=== PATIENT | male | born 1945 | race Caucasian/White ===

== ENCOUNTER → 2020-10-31 15:21 | Outpatient (CLI) | payer MEDICARE, SELFPAY ==
--- NOTE | 2020-11-27 09:02 | PM.CARDMON.1 ---
Jacquard Card Lacer Report Referral & Results Date Patient Seen: 10/31/20 Requesting provider: Shweta Tay Indication: Cardiac arrhythmia Duration of monitoring (days): 14 Diary information: There are no patient diary events or patient triggered events to review Data: Minimum heart rate identified was 67 beats per minute at 18:39 on 11/08/2020 Maximum heart rate was 152 beats per minute at 16:21 on 11/01/2020 Less than 1% of identified beats were ventricular ectopic in origin Patient was continuously in atrial flutter/atrial fibrillation, but upon review specially of the slowest heart rates patient does appear to be mostly in atypical atrial flutter with variable block Impression: Patient with atrial flutter and possible atrial fibrillation as above. Clinical correlation suggested
== END ==
PROVIDERS: PCP Physician Assistant; Referring Provider Physician Assistant; Visit Provider Physician Assistant
DX: I49.9 Cardiac arrhythmia, unspecified (principal)
CPT/HCPCS: 93246; 93248

== ENCOUNTER → 2021-11-17 10:27 | Outpatient (CLI) | payer MEDICARE, SELFPAY ==
[2021-11-17 12:26] LABS: COVID19 -Nasal RAPID Negative (Negative)
== END ==
PROVIDERS: PCP Physician Assistant; Referring Provider Family Medicine Sleep Medicine; Visit Provider Family Medicine Sleep Medicine
DX: Z20.822 Contact with and (suspected) exposure to COVID-19 (principal)
CPT/HCPCS: 87635; C9803

== ENCOUNTER 2021-11-18 08:13 | Day surgery (SDC) | payer MEDICARE, SELFPAY ==
[2021-11-18] MEDS: PROPARACAINE 0.5% OPHTH SOL 2 DROPS EYE-OP (09:18)
[2021-11-18 09:20] VITALS: BP 167/80; PULSE 67; RESP 16; TEMP 36.9; O2SAT 97; BMI 24.3
[2021-11-18] MEDS: CATARACT EYE COMPOUND (10 DROPS/SYRINGE) 3 DROPS EYE-OP (09:25)
--- NOTE | 2021-11-18 10:01 | PM.PREOP ---
Pre-operative Note Interval Note History & Physical reviewed/Exam performed by Physician: Yes Changes to H&P: No Addendum Addendum Note: Non surgical alternatives are not available for patients condtion. Deterioration fo the patient's condition is expected without treatment. Delay may result in more complex future surgery.
--- NOTE | 2021-11-18 10:02 | P.OP_ITS ---
Operative Date/Time/Diagnoses Pre-op diagnosis: Nuclear cataract right eye Procedure & Clinicians Procedure: Cataract Surgery Same procedure as scheduled: Yes Surgeon: Andi Ashford Anesthesia Type: MAC +/- and Sedation Operative Notes Procedure in detail: Patient brought to the operating suite. Tetracaine drops placed in the right eye. marking instrument was used to ranjith the vertical and horizontal meridians. Patient was prepped and draped in sterile manner. Wire lid speculum was placed in the eye. Marking instrument was used to ranjith the 100 degree meridian. Betadine drops were placed on the eye. This was irrigated. Lidocaine jelly was placed on the eye. A paracentesis port was created with a side-port blade. 0.1 mL 1% preservative free lidocaine was injected into the anterior chamber. The anterior chamber was deepened with viscoelastic. 2.6 mm keratome was used to create a temporal clear corneal incision. Cystotome and Utrata forceps were used to create continuous tear capsulorrhexis. Balanced salt solution was used to hydro dissect the nucleus. The phacoemulsification handpiece was inserted and the nucleus was removed using the stop and chop technique. The irrigation aspiration handpiece was inserted and the remaining cortex was removed. Anterior chamber was deepened with viscoelastic. An Ortega [id number] intraocular lens with a power of 21.5 was injected into the capsular bag. Irrigation aspiration handpiece was inserted and the remaining viscoelastic was removed. The lens was rotated to the 100 degree meridian. Incision was hydrated with balanced salt solution and found to be leak free with pressure with Weck-Vandana sponges. 0.1 mL Vigamox injected anterior chamber. 0.3 mL Kenalog 10 mg was injected subco njunctivally. Lid speculum was removed. The patient left the operating room in excellent condition. Complications: none Post-operative Condition: stable Disposition: same day surgery
--- NOTE | 2021-11-18 10:26 | SUR.OPER ---
Supine on eye stretcher, head on extension cradle secured with tape. Arms tucked at sides with blanket. Pillow under knees.
[2021-11-18] MEDS: HYALURONATE SODIUM 30 MG-10 MG/ML SYRINGES 1 BOX INTRAOCULA (10:30)
[2021-11-18] MEDS: TRIAMCINOLONE 50 MG/5 ML VIAL INJ (10:31)
[2021-11-18] MEDS: LIDOCAINE 2% (GLYDO) 6 ML GEL TOP (10:31)
[2021-11-18] MEDS: PHENYLEPHRINE/LIDOCAINE VIAL (OR) 0.2 ML EYE-OP (10:31)
[2021-11-18] MEDS: TETRACAINE 0.5% OPHTH DROPS 4 ML 2 DROPS EYE-OP (10:31)
[2021-11-18] MEDS: MOXIFLOXACIN INJ 4 MG/0.8 ML VIAL 0.5 MG EYE-OP (10:31)
[2021-11-18] MEDS: BALANCED SALT IRRIG SOLN NO.2 500 ML, EPINEPHrine 1 MG IRR (10:32)
[2021-11-18 10:43] VITALS: BP 139/69; PULSE 63; RESP 14; TEMP 36.2; O2SAT 97
== END 2021-11-18 10:53 | disposition home or self-care (01) ==
PROVIDERS: PCP Internal Medicine; Referring Provider Ophthalmology; Visit Provider Ophthalmology
PROC: (CPT 66984; principal; 2021-11-18 10:15)
DX: H25.11 Age-related nuclear cataract, right eye (principal); I10 Essential (primary) hypertension; E78.5 Hyperlipidemia, unspecified; R73.03 Prediabetes
CPT/HCPCS: 66984; J0171; J2250; J3301; V2787

== ENCOUNTER → 2021-11-24 07:24 | Outpatient (CLI) | payer MEDICARE, SELFPAY ==
--- NOTE | 2021-11-24 | DI.US.S_ITS ---
PROCEDURE: US ABD AORTA ANEURYSM SCREEN INDICATIONS: SCREENING TECHNIQUE: Real time scanning was performed of the aorta and iliac arteries, with image documentation. COMPARISON: None. FINDINGS: Aorta: Proximal aortic diameter measures 2.6 cm. Mid-aorta measures 2.2 cm. Distal aortic diameter is 2 cm. Iliac arteries: Right common iliac artery measures 1.2 cm. Left common iliac artery measures 1.9 cm. Study is limited by bowel gas. A IMPRESSION: Negative for aneurysm. Dictated by: Ata Diaz M.D. on 11/24/2021 at 9:46 Approved by: Ata Diaz M.D. on 11/24/2021 at 9:46
== END ==
PROVIDERS: PCP Internal Medicine; Referring Provider Internal Medicine; Visit Provider Internal Medicine
DX: Z13.6 Encounter for screening for cardiovascular disorders (principal)
CPT/HCPCS: 76706

== ENCOUNTER → 2021-12-01 11:02 | Outpatient (CLI) | payer MEDICARE, SELFPAY ==
[2021-12-01 12:41] LABS: COVID19 -Nasal RAPID Negative (Negative)
== END ==
PROVIDERS: PCP Internal Medicine; Visit Provider Family Medicine Sleep Medicine
DX: Z20.822 Contact with and (suspected) exposure to COVID-19 (principal)
CPT/HCPCS: 87635; C9803

== ENCOUNTER 2021-12-02 10:13 | Day surgery (SDC) | payer MEDICARE, SELFPAY ==
[2021-12-02] MEDS: PROPARACAINE 0.5% OPHTH SOL 2 DROPS EYE-OP (10:55)
[2021-12-02] MEDS: CATARACT EYE COMPOUND (10 DROPS/SYRINGE) 3 DROPS EYE-OP (10:58)
[2021-12-02 11:08] VITALS: BP 157/74; PULSE 65; RESP 16; TEMP 36.8; O2SAT 99; BMI 35.9
--- NOTE | 2021-12-02 11:28 | P.OP.PRE_ITS ---
Pre-operative Note Interval Note History & Physical reviewed/Exam performed by Physician: Yes Changes to H&P: No Addendum Addendum Note: There are no non surgical alternatives to the patient's condition. Deteriora tion of the patient's condition is expected. Delay may result in more complex future surgery
--- NOTE | 2021-12-02 11:30 | P.OP_ITS ---
Operative Date/Time/Diagnoses Pre-op diagnosis: Nuclear Cataract Left eye Post-op diagnosis: same Procedure & Clinicians Same procedure as scheduled: Yes Surgeon: Andi Ashford Anesthesia Type: MAC +/- and Sedation Operative Notes Procedure in detail: Patient brought to the operating suite. Tetracaine drops placed in the left eye. Marking instrument was used to ranjith the vertical and horizontal meridians. Patient was prepped and draped in sterile manner. Wire lid speculum was placed in the eye. Betadine drops were placed on the eye. This was irrigated. Lid ocaine jelly was placed on the eye. A paracentesis port was created with a side- port blade. 0.1 mL 1% preservative free lidocaine was injected into the anterior chamber. The anterior chamber was deepened with viscoelastic. 2.6 mm keratome was used to create a temporal clear corneal incision. Cystotome and Utrata forceps were used to create continuous tear capsulorrhexis. Balanced salt solution was used to hydro dissect the nucleus. The phacoemulsification handpiece was inserted and the nucleus was removed using the stop and chop technique. The irrigation aspiration handpiece was inserted and the remaining cortex was removed. Anterior chamber was deepened with viscoelastic. An Ortega [id number] intraocular lens with a power of 24.0 was injected into the capsular bag. Irrigation aspiration handpiece was inserted and the remaining viscoelastic was removed. The lens was rotated to the 90 degree meridian. Incision was hydrated with balanced salt solution and found to be leak free with pressure with Weck- Vandana sponges. 0.1 mL Vigamox injected anterior chamber. 0.3 mL Kenalog 10 mg was injected subconjunctivally. Lid speculum was removed. The patient left the operating room in excellent condition. Complications: none Post-operative Condition: stable Disposition: same day surgery
[2021-12-02] MEDS: TRIAMCINOLONE 50 MG/5 ML VIAL INJ (11:47)
[2021-12-02] MEDS: HYALURONATE SODIUM 30 MG-10 MG/ML SYRINGES 1 BOX INTRAOCULA (11:47)
[2021-12-02] MEDS: MOXIFLOXACIN INJ 4 MG/0.8 ML VIAL 0.5 MG EYE-OP (11:47)
[2021-12-02] MEDS: PHENYLEPHRINE/LIDOCAINE VIAL (OR) 0.2 ML EYE-OP (11:47)
[2021-12-02] MEDS: TETRACAINE 0.5% OPHTH DROPS 4 ML 2 DROPS EYE-OP (11:48)
[2021-12-02] MEDS: BALANCED SALT IRRIG SOLN NO.2 500 ML, EPINEPHrine 1 MG IRR (11:48)
[2021-12-02] MEDS: LIDOCAINE 2% (GLYDO) 6 ML GEL TOP (11:48)
[2021-12-02 12:16] VITALS: BP 131/79; PULSE 63; RESP 16; TEMP 36.6; O2SAT 99
--- NOTE | 2021-12-02 12:17 | SUR.PHASEII ---
Ready to go, left unit in stable condition.
== END 2021-12-02 12:18 | disposition home or self-care (01) ==
PROVIDERS: PCP Internal Medicine; Referring Provider Ophthalmology; Visit Provider Ophthalmology
PROC: (CPT 66984; principal; 2021-12-02 12:15)
DX: H25.12 Age-related nuclear cataract, left eye (principal); I10 Essential (primary) hypertension; R73.03 Prediabetes
CPT/HCPCS: 66984; 82962; J0171; J2250; J3010; J3301; V2787

== ENCOUNTER → 2022-07-06 16:04 | Outpatient (CLI) | payer MEDICARE, SELFPAY ==
[2022-07-06 17:18] LABS: Estimated Glomerular Filt Rate > 60 mL/min (>60)
== END ==
PROVIDERS: PCP Internal Medicine; Referring Provider Internal Medicine; Visit Provider Internal Medicine
DX: R10.9 Unspecified abdominal pain (principal)
CPT/HCPCS: 36415; 82565

== ENCOUNTER → 2022-07-07 10:11 | Outpatient (CLI) | payer MEDICARE, SELFPAY ==
--- NOTE | 2022-07-07 11:44 | DI.CT.S_ITS ---
PROCEDURE: CT ABDOMEN PELVIS W CON INDICATIONS: Unspecified abdominal pain TECHNIQUE: After the administration of oral and IV contrast, axial sections were acquired from the lung bases to the pubic symphysis. Coronal and sagittal reformats were performed. For radiation dose reduction, the following was used: automated exposure control, adjustment of mA and/or kV according to patient size. COMPARISON: [facility], CT, CT ANGIO CHEST PE, 03/03/2021, 17:29. FINDINGS: Image quality: Excellent. Lung bases: Right lower lobe superior segment pulmonary nodule measuring 0.5 cm, (3/9), unchanged. Mild peripheral reticular thickening. Heart: Prominent. Three-vessel coronary artery calcifications. ABDOMEN: Liver: Hepatic steatosis. Gallbladder: Prominent size. Multiple small gallstones. Gallstones within the cystic duct, similar. Biliary ducts: Unremarkable. Pancreas: Unremarkable. Spleen: Unremarkable. Adrenal Glands: No nodule. Kidneys and Ureters: No hydronephrosis. Stomach and Bowel: Stomach, small bowel loops, and colon are unremarkable. The appendix is not dilated. Peritoneum: No abnormal intraperitoneal fluid. No free air. Ventral Wall: No hernia. Abdominal Nodes: No retroperitoneal or mesenteric adenopathy by size criteria. Vessels: Aorta and inferior vena cava are normal in size. Moderate plaque. PELVIS: Pelvic Organs: No free fluid. Prominent prostate gland. Bladder: Not distended. No stone. Pelvic Nodes: No enlarged lymph nodes. Miscellaneous: No inguinal hernias are seen. Bones: Mild scoliosis. No compression fracture. Severe DDD. IMPRESSION: 1. No acute abnormality identified. No free fluid. 2. Multiple gallstones including stones within the cystic duct. Consider further evaluation with gallbladder ultrasound. 3. Hepatic steatosis. 4. Prostatomegaly. Dictated by: Deepak Sweet M.D. on 07/07/2022 at 15:33 Approved by: Deepak Sweet M.D. on 07/07/2022 at 15:41
== END ==
PROVIDERS: PCP Internal Medicine; Referring Provider Internal Medicine; Visit Provider Internal Medicine
DX: R10.9 Unspecified abdominal pain (principal); K80.80 Other cholelithiasis without obstruction; K76.0 Fatty (change of) liver, not elsewhere classified; N40.0 Benign prostatic hyperplasia without lower urinary tract symptoms
CPT/HCPCS: 74177

== ENCOUNTER 2022-07-07 16:11 | Observation (INO) | payer OTHER, SELFPAY ==
[2022-07-07] VITALS (8 sets, daily range): BP systolic 149–168; BP diastolic 62–72; PULSE 56–72; RESP 14–18; TEMP 36.5–36.6; O2SAT 97–99; BMI 33.3; BMI 32.7
[2022-07-07 17:59] LABS: Add Manual Diff / Slide Review NO; Albumin 4.3 g/dL (3.5-5.0); Albumin Globulin Ratio 1.1 (1.0-2.8); Alkaline Phosphatase 223 U/L (38-126); Aspartate Aminotransferase 475 IU/L (17-59); BUN Creatinine Ratio 30.8 (6-22); Basophils Absolute Auto 100 /uL (0-100); Basophils Percent Auto 0.6 % (0-2); Bilirubin Total 4.5 mg/dL (0.2-1.3); Blood Urea Nitrogen 32 mg/dL (9-20); Calcium 9.2 mg/dL (8.4-10.2); Carbon Dioxide 21 mmol/L (22-32); Chloride 99 mmol/L (98-107); Eosinophils Absolute Auto 200 /uL (0-450); Eosinophils Percent Auto 2.3 % (2-4); Estimated Glomerular Filt Rate > 60 mL/min (>60); Globulin 3.8 g/dL (1.7-4.1); Glucose 113 mg/dL (80-110); Hematocrit 44.6 % (41-53); Hemoglobin 15.2 g/dL (13.5-17.5); Lipase 249 U/L (23-300); Lymphocytes Absolute Auto 1400 /uL (1100-4500); Mean Corpuscular Volume 96.9 fL (80-100); Monocytes Absolute Auto 600 /uL (0-900); Monocytes Percent Auto 6.9 % (3-14); Neutrophils Absolute Auto 6700 /uL (1500-7000); Neutrophils Percent Auto 74.2 % (50-75); Platelet Count 210 X10^3/uL (150-400); Potassium 4.2 mmol/L (3.4-5.1); Red Cell Distribution Width 15.1 % (11.6-14.8); Sodium 137 mmol/L (137-145); Total Protein 8.1 g/dL (6.3-8.2); White Blood Cell Count 9.1 X10^3/uL (4.5-11.0)
[2022-07-07 18:06] LABS: HEMOLYSIS 17 (0-50)
[2022-07-07 18:07] LABS: Alanine Aminotransferase 890 IU/L (<50)
--- NOTE | 2022-07-07 19:51 | DI.US.S_ITS ---
PROCEDURE: US ABDOMEN LIMITED INDICATIONS: PAIN TECHNIQUE: Real-time focused scanning was performed of the abdomen, with image documentation. COMPARISON: [facility], CT, CT ABDOMEN PELVIS W CON, 07/07/2022, 11:54. FINDINGS: The liver demonstrates increased parenchymal echogenicity consistent with fatty infiltration. There are multiple echogenic shadowing gallstones including nonmobile stones in the gallbladder neck. There is mild gallbladder wall thickening. No pericholecystic fluid or reported sonographic Crenshaw's sign. No definite intrahepatic biliary ductal dilatation, with evaluation limited by increased hepatic echogenicity. There is dilatation of the common bile duct measuring up to 0.8 cm. The pancreas was not well seen due to bowel gas. IMPRESSION: 1. Cholelithiasis including impacted stones in the gallbladder neck. Mild gallbladder wall thickening is demonstrated without pericholecystic fluid or reported sonographic Crenshaw's sign. The findings are equivocal but may reflect developing cholecystitis. 2. Mild biliary ductal dilatation. Choledocholithiasis cannot be excluded and correlation is recommended clinically including with laboratory values. Further evaluation may be obtained with MRCP if indicated. Dictated by: Low Amaro M.D. on 07/07/2022 at 21:27 Approved by: Low Amaro M.D. on 07/07/2022 at 21:31
--- NOTE | 2022-07-07 19:53 | ED.ABDPAIN ---
HPI - Abdominal Pain General Chief Complaint: Abdominal Pain Stated Complaint: ABD. PAIN Time Seen by Provider: 07/07/22 19:50 Source: patient Mode of arrival: Ambulatory History of Present Illness HPI narrative: 76-year-old male former smoker presents with his in the chief complaint of severe epigastric and right upper quadrant pain with radiation to his back. He has been having episodes of pain off and on for least the past few weeks but it has become much more persistent over the past week. He states that it seems to get worse when he moves and improves with rest. He certainly has increasing symptoms with food and drink. He is had nausea and vomited once. He denies any jaundice, fever or chills. He denies dizziness, weakness or lightheadedness. He had been evaluated by his primary care provider who ordered an outpatient CT with labs earlier today and prior to getting the results the CT his symptoms have become more persistent and severe at which point he called his primary care office and was directed here for evaluation. Related Data Home Medications Medication Instructions Recorded Confirmed atorvastatin 10 mg tablet 10 mg PO DAILY 11/18/21 04/09/22 cetirizine 10 mg tablet 10 mg PO DAILY 11/18/21 04/09/22 lisinopril 10 mg tablet 10 mg PO DAILY 11/18/21 04/09/22 empagliflozin 25 mg tablet 25 mg PO DAILY 04/09/22 04/09/22 (Jardiance) metformin 500 mg tablet,extended 500 mg PO BID 04/09/22 04/09/22 release 24 hr Allergies Allergy/AdvReac Type Severity Reaction Status Date / Time No Known Drug Allergies Allergy Verified 07/07/22 17:07 Review of Systems Review of Systems Narrative: GENERAL: Denies chills, fatigue, malaise, fever, sweats. HEENT: Denies sinus pain, ear pain, sore throat, difficulty swallowing, dizziness. RESPIRATORY: Denies dyspnea, cough, wheezing, hemoptysis, sputum. CARDIOVASCULAR: Denies chest pain, palpitations, orthopnea, edema, GASTROINTESTINAL: See HPI : Denies dysuria, frequency, incontinence, hematuria, urinary retention. MUSCULOSKELETAL: denies weakness, joint pain, or bony pain SKIN: Denies rash, skin lesions, or other NEUROLOGIC: Denies weakness, headache, numbness, change in speech, confusion, seizures, incoordination. PSYCHIATRIC: No concerning psychosocial issues. 12 point review of systems is negative except for those stated above Patient History Medical History Carpal tunnel syndrome on both sides Cataract associated with other syndromes DM (diabetes mellitus) HTN (hypertension) Hypercholesteremia Obstructive sleep apnea (adult) (pediatric) (2019) Tear, knee, medial meniscus Social History household members: spouse Smoking Status: Former smoker alcohol intake: current Smoking Status: Former smoker alcohol intake frequency: a few times a month Substance Use Type: does not use Exam Narrative Exam Narrative: GENERAL: 76[] year old patient appears stated age. Well-developed patient, in mild distress. HEAD: Atraumatic. Normocephalic. EYES: Pupils equal round and reactive. Extraocular motions intact. No scleral icterus. No injection or drainage. ENT: Nose without bleeding, purulent drainage. Throat without erythema, tonsillar hypertrophy or exudate. Airway patent. NECK: Trachea midline. Non tender CARDIOVASCULAR: Regular rate and rhythm without murmurs, gallops, or rubs. RESPIRATORY: Clear to auscultation. Breath sounds equal bilaterally. No wheezes, rales, or rhonchi. GASTROINTESTINAL: Abdomen soft, tender in the epigastrium EXTREMITIES: No edema or joint tenderness. BACK: Nontender without deformity or crepitance. No flank tenderness. NEURO: AOx3. SKIN: No rash or erythema of visible areas Initial Vital Signs Initial Vital Signs: Vital Signs Temperature 98 F 07/07/22 17:02 Pulse Rate 72 07/07/22 17:02 Respiratory Rate 14 07/07/22 17:02 Blood Pressure 168/72 H 07/07/22 17:02 Pulse Oximetry 97 07/07/22 17:02 Oxygen Delivery Method 07/07/22 17:02 Course Orders Ordered: ED Orders 07/07/22 17:35 Complete Blood Count AUTO DIFF Stat Comprehensive Metabolic Panel Stat Lipase Stat 07/07/22 17:50 EKG-12 Lead Stat 07/07/22 19:51 US abdomen limited Stat 07/07/22 19:56 COVID19 -Nasal RAPID/Pre-Proc Stat Acetaminophen (Acetaminophen 325 Mg Tablet) 650 mg PO Q6HR SIMEON Atorvastatin Calcium (Atorvastatin 20 Mg Tablet) 10 mg PO DAILY SIMEON Enoxaparin Sodium (Enoxaparin 30 Mg/0.3 Ml Syringe) 30 mg SUBCUT DAILY SIMEON Famotidine (Famotidine 20 Mg Tablet) 20 mg PO BEDTIME SIMEON Gabapentin (Gabapentin 300 Mg Capsule) 300 mg PO Q8HR SIMEON Lactated Ringer's (Lactated Ringers) 1,000 mls @ 100 mls/hr IV CONT SIMEON Last Admin: 07/08/22 00:35 Dose: 100 mls/hr Documented By: SH Piperacillin Sod/Tazobactam (Sod 3.375 gm/ Sodium Chloride) 100 mls @ 25 mls/hr IV Q8H SIMEON Ibuprofen (Ibuprofen 400 Mg Tablet) 400 mg PO Q8HR SIMEON Lisinopril (Lisinopril 10 Mg Tablet) 10 mg PO DAILY SIMEON Metformin HCl (Metformin Xr 500 Mg Tablet) 500 mg PO BID SIMEON (Empagliflozin [ Jardiance] 25 Mg Tablet) 25 mg PO DAILY SIMEON Ondansetron HCl (Ondansetron 4 Mg/2 Ml Inj) 4 mg IV Q8HR PRN PRN Reason: Nausea And Vomiting Oxycodone HCl (Oxycodone Ir 5 Mg Tablet) 5 mg PO Q4HR PRN PRN Reason: Pain, Moderate (4-6) Discontinued Medications Piperacillin Sod/Tazobactam (Sod 4.5 gm/ Sodium Chloride) 100 mls @ 200 mls/hr IV NOW ONE Stop: 07/07/22 21:17 Last Admin: 07/07/22 21:35 Dose: 200 mls/hr Documented By: EB Consultations Consultation #1: Discussed with on-call surgery, Dr. Merritt, she will admit to her service and likely perform an MRCP before deciding on surgical plan Vital Signs Vital signs: Vital Signs - 8 hr 07/07/22 21:12 07/07/22 21:13 07/07/22 21:13 Pulse Rate 60 Blood Pressure 159/68 H Pulse Oximetry 99 99 MDM - Abdominal Pain Lab Data Result diagrams: 07/07/22 17:35 07/07/22 17:35 Labs: Lab Results 07/07/22 07/07/22 07/07/22 Range/Units 17:35 17:35 19:56 WBC 9.1 (4.5-11.0) X10^3/uL RBC 4.60 (4.5-5.9) X10^6/uL Hgb 15.2 (13.5-17.5) g/dL Hct 44.6 (41-53) % MCV 96.9 (80-100) fL MCH 33.0 (26-34) PG MCHC 34.0 (30-36) % RDW 15.1 H (11.6-14.8) % Plt Count 210 (150-400) X10^3/uL Neut % (Auto) 74.2 (50-75) % Lymph % (Auto) 16.0 L (25-40) % Ceiba % (Auto) 6.9 (3-14) % Eos % (Auto) 2.3 (2-4) % Baso % (Auto) 0.6 (0-2) % Neut # (Auto) 6700 (1582-9419) /uL Lymph # (Auto) 1400 (6279-4265) /uL Ceiba # (Auto) 600 (0-900) /uL Eos # (Auto) 200 (0-450) /uL Baso # (Auto) 100 (0-100) /uL Sodium 137 (137-145) mmol/L Potassium 4.2 (3.4-5.1) mmol/L Chloride 99 (98-107) mmol/L Carbon Dioxide 21 L (22-32) mmol/L BUN 32 H (9-20) mg/dL Creatinine 1.04 (0.66-1.25) mg/dL Estimated GFR > 60 (>60) mL/min BUN/Creatinine Ratio 30.8 H (6-22) Glucose 113 H (80-110) mg/dL Calcium 9.2 (8.4-10.2) mg/dL Total Bilirubin 4.5 H (0.2-1.3) mg/dL AST 475 H (17-59) IU/L ALT 890 H (<50) IU/L Alkaline Phosphatase 223 H (38-126) U/L Total Protein 8.1 (6.3-8.2) g/dL Albumin 4.3 (3.5-5.0) g/dL Globulin 3.8 (1.7-4.1) g/dL Albumin/Globulin Ratio 1.1 (1.0-2.8) Lipase 249 (23-300) U/L SARS-CoV-2 (PCR) Negative (Negative) Imaging Data CT scan - abdomen/pelvis: Radiologist's Impression: Marcelo Santillan??76??M??1945 ? Allergy/Adv: No Known Drug Allergies Close Abdomen Ultrasound (Signed) Low Amaro - 07/07/22 Abdomen/Pelvis CT (Signed) Deepak Sweet - 07/07/22 Abdominal Arterial Study US (Signed) Ata Diaz - 11/24/21 [place] [address] CT Scan Report Signed Patient: Marcelo Santillan MR#: [id number] : 1945 Acct:[id number] Age/Sex: 76 / M Date of Service: 07/07/22 Loc: CT Accession Number: [id number] ?? Procedure: CT abdomen pelvis w con Ordering Provider: Benson Edgar MD PROCEDURE:? CT ABDOMEN PELVIS W CON ? INDICATIONS:? Unspecified abdominal pain ? TECHNIQUE:? After the administration of oral and IV contrast, axial sections were acquired from the lung bases to the pubic symphysis.? Coronal and sagittal reformats were performed.? For radiation dose reduction, the following was used:? automated exposure control, adjustment of mA and/or kV according to patient size. ? COMPARISON:? [facility], CT, CT ANGIO CHEST PE, 03/03/2021, 17:29. ? FINDINGS:? Image quality:? Excellent.? ? Lung bases:? Right lower lobe superior segment pulmonary nodule measuring 0.5 cm, (3/9), unchanged.? Mild peripheral reticular thickening. Heart:? Prominent.? Three-vessel coronary artery calcifications. ? ? ABDOMEN: Liver:? Hepatic steatosis.? ? Gallbladder:? Prominent size.? Multiple small gallstones.? Gallstones within the cystic duct, similar.? ? Biliary ducts:? Unremarkable.? ? Pancreas:? Unremarkable.? ? Spleen:? Unremarkable.? ? Adrenal Glands:? No nodule. Kidneys and Ureters:? No hydronephrosis.? ? ? Stomach and Bowel:? Stomach, small bowel loops, and colon are unremarkable.? The appendix is not dilated. Peritoneum:? No abnormal intraperitoneal fluid.? No free air.? ? Ventral Wall: ? No hernia.? Abdominal Nodes:? No retroperitoneal or mesenteric adenopathy by size criteria.? Vessels:? Aorta and inferior vena cava are normal in size.? Moderate plaque.? ? PELVIS: Pelvic Organs:? No free fluid.? Prominent prostate gland. ? Bladder:? Not distended.? No stone.? ? Pelvic Nodes: No enlarged lymph nodes.? Miscellaneous: No inguinal hernias are seen. ? ? ? Bones:? Mild scoliosis.? No compression fracture.? Severe DDD. ? ? IMPRESSION:? 1. No acute abnormality identified.? No free fluid. ? 2. Multiple gallstones including stones within the cystic duct.? Consider further evaluation with gallbladder ultrasound. ? 3. Hepatic steatosis. ? 4. Prostatomegaly.? ? ? Dictated by: Deepak Sweet M.D. on 07/07/2022 at 15:33 ? ? Approved by: Deepak Sweet M.D. on 07/07/2022 at 15:41 ? Discharge Plan Departure Patient Disposition: Admitted As Inpatient Clinical Impression: Acute cholecystitis Admit Date/Time: 07/07/22 21:16 Admit Provider: Shelbi Merritt
[2022-07-07 21:10] LABS: COVID19 -Nasal RAPID Negative (Negative)
[2022-07-07] MEDS: PIPERACILLIN/TAZO 4.5 GM in SODIUM CHLORIDE 0.9% 100 ML IV (21:35)
[2022-07-08] MEDS: LACTATED RINGERS 1,000 ML 100 ML IV (00:35)
--- NOTE | 2022-07-08 03:11 | PC.ADMIT ---
[email or web address] [facility] [address] Admission Note: Patient admitted to from ED at 2300 transported via wheelchair. Alert and oriented x 4, shown how to use call light. Oriented to room. Bed in low position and brakes locked. Denies pain. LR running @ 100/hr. The patient,Marcelo Santillan,76 y/o, was given written information regarding hospital policies, unit procedures and contact persons. Patient's smoking status: Former smoker. Vital Signs - 8 hr 07/07/22 21:12 07/07/22 21:13 07/07/22 21:13 Temperature Pulse Rate 60 Respiratory Rate Blood Pressure 159/68 H Pulse Oximetry 99 99 Oxygen Flow Rate 07/07/22 21:30 07/07/22 22:00 07/07/22 22:01 Temperature Pulse Rate 56 L 62 Respiratory Rate Blood Pressure 151/70 H Pulse Oximetry 99 98 Oxygen Flow Rate 07/07/22 22:01 07/07/22 22:30 07/07/22 23:00 Temperature 97.7 F Pulse Rate 62 59 L 65 Respiratory Rate 18 Blood Pressure 149/62 H Pulse Oximetry 99 97 98 Oxygen Flow Rate 0
[2022-07-08] MEDS: PIPERACILLIN/TAZO 3.375 GM in SODIUM CHLORIDE 0.9% 100 ML IV ×3 (04:44→20:39)
[2022-07-08 04:52] LABS: Appearance Urine UA CLEAR; Bilirubin Urine UA 2+ (NEGATIVE); Glucose Urine UA 2+ g/dL (Negative); Ketones Urine UA 2+ (NEGATIVE); Leukocyte Esterase Urine UA NEGATIVE (NEGATIVE); Nitrite Urine UA NEGATIVE (Negative); Occult Blood Urine UA NEGATIVE (Negative); Protein Urine UA 1+ (Negative); Specific Gravity Urine UA 1.015 (1.000-1.035)
[2022-07-08 04:53] LABS: Color Urine UA Dark Yellow
[2022-07-08 04:55] LABS: Ictotest Urine Positive (Negative)
[2022-07-08 04:56] LABS: Bacteria Urine None Seen; Culture Indicated Urine Cult Not Indicated; RBC Urine None Seen (0-5/HPF); Squamous Epithelial Cell Urine 0-1 /HPF (0-5/HPF); WBC Urine None Seen (0-5/HPF)
[2022-07-08 06:26] LABS: Add Manual Diff / Slide Review NO; Basophils Absolute Auto 100 /uL (0-100); Basophils Percent Auto 0.9 % (0-2); Eosinophils Absolute Auto 500 /uL (0-450); Eosinophils Percent Auto 6.3 % (2-4); Hemoglobin 14.3 g/dL (13.5-17.5); Lymphocytes Absolute Auto 1600 /uL (1100-4500); Lymphocytes Percent Auto 19.5 % (25-40); Mean Corpuscular HGB Conc 33.2 % (30-36); Mean Corpuscular Hemoglobin 32.3 PG (26-34); Mean Corpuscular Volume 97.4 fL (80-100); Monocytes Absolute Auto 800 /uL (0-900); Monocytes Percent Auto 9.5 % (3-14); Neutrophils Absolute Auto 5300 /uL (1500-7000); Neutrophils Percent Auto 63.8 % (50-75); Platelet Count 205 X10^3/uL (150-400); Red Blood Cell Count 4.41 X10^6/uL (4.5-5.9); Red Cell Distribution Width 14.8 % (11.6-14.8); White Blood Cell Count 8.3 X10^3/uL (4.5-11.0)
--- NOTE | 2022-07-08 06:26 | DI.MRI.S_ITS ---
PROCEDURE: MR ABDOMEN WO CON INDICATIONS: CBD stones TECHNIQUE: Coronal HASTE through the abdomen, axial 2-D FLASH in- and [id number], and breath-hold T2 FSE with fat saturation through the biliary system and pancreas. Oblique coronal and axial thin-slice HASTE, radial thick-slab HASTE centered on the extrahepatic bile ducts. Intravenous secretin: Not requested. COMPARISON: [facility], CT, CT ABDOMEN PELVIS W CON, 07/07/2022, 11:54. [facility], US, US ABDOMEN LIMITED, 07/07/2022, 20:06. FINDINGS: Image quality: Adequate. Pancreas and biliary system: Intra- and extra-hepatic biliary ducts are non dilated. No choledocholithiasis visualized. Pancreas is normal in morphology, without adjacent soft tissue edema. Pancreatic duct is normal in caliber. Gallbladder contains multiple small stones as seen previously. Mild thickening of the gallbladder wall is present. Other solid organs: Liver is normal in size. Spleen is normal in size. No adrenal nodules. Both kidneys are normal in size, without hydronephrosis. Nodes and vessels: No retroperitoneal or mesenteric adenopathy by size criteria. Aorta and inferior vena cava are normal in size. Bowel and peritoneum: Unenhanced bowel loops are normal in caliber. No substantial free fluid. Lung bases: No basal pleural effusions. Bones and soft tissues: Bone marrow is of normal overall signal. IMPRESSION: 1. No biliary ductal dilation or evidence of choledocholithiasis. 2. Multiple small gallstones are present in the gallbladder as before. Mild thickening of the gallbladder wall is also present, which is a nonspecific finding that can be seen in the setting of cholecystitis. Dictated by: Brandt Calabrese M.D. on 07/08/2022 at 12:37 Approved by: Brandt Calabrese M.D. on 07/08/2022 at 12:53
[2022-07-08 07:00] VITALS: BP 142/59; PULSE 61; RESP 18; TEMP 36.4; O2SAT 96
[2022-07-08 08:30] LABS: Alanine Aminotransferase 742 IU/L (<50); Albumin 3.7 g/dL (3.5-5.0); Albumin Globulin Ratio 1.1 (1.0-2.8); Alkaline Phosphatase 205 U/L (38-126); Aspartate Aminotransferase 330 IU/L (17-59); BUN Creatinine Ratio 29.7 (6-22); Bilirubin Total 3.6 mg/dL (0.2-1.3); Blood Urea Nitrogen 27 mg/dL (9-20); Calcium 8.9 mg/dL (8.4-10.2); Carbon Dioxide 20 mmol/L (22-32); Chloride 102 mmol/L (98-107); Estimated Glomerular Filt Rate > 60 mL/min (>60); Globulin 3.5 g/dL (1.7-4.1); Glucose 90 mg/dL (80-110); HEMOLYSIS < 15 (0-50); Potassium 3.9 mmol/L (3.4-5.1); Sodium 136 mmol/L (137-145); Total Protein 7.2 g/dL (6.3-8.2)
[2022-07-08 08:47] VITALS: BP 142/59; PULSE 61
[2022-07-08] MEDS: METFORMIN XR 500 MG TABLET PO ×2 (08:47→20:39)
[2022-07-08] MEDS: lisinopriL 10 MG TABLET PO (08:47)
[2022-07-08] MEDS: ATORVASTATIN 20 MG TABLET 10 MG PO (08:47)
[2022-07-08] MEDS: ENOXAPARIN 30 MG/0.3 ML SYRINGE SUBCUT (08:48)
--- NOTE | 2022-07-08 11:22 | PM.HP.1 ---
History of Present Illness History of Present Illness Date Patient Seen: 07/08/22 Time Patient Seen: :22 Date of Onset of Symptoms: 07/05/22 Chief complaint: ABD. PAIN Narrative: Nausea and sharp epigastric to RUQ pain with any intake. Occasional radiation to the back. Better if he avoids food. Going on for 2 days previous 1-2 episodes were short and limited. Work up shows biliary obstruction with elevated LFT's including admit bili >4. Little improvement with am labs and likely due in part to rehydration. Patient History Medical History Carpal tunnel syndrome on both sides Cataract associated with other syndromes DM (diabetes mellitus) HTN (hypertension) Hypercholesteremia Obstructive sleep apnea (adult) (pediatric) (2019) Tear, knee, medial meniscus Family & Social History Social History: household members spouse Prior Living Arrangements Apartment/Condo Safety & Behavioral: Feels Safe in Current Yes Environment Been Physically Hurt or No Threatened By a Person Tobacco & Substance use: Tobacco type cigarettes Smoking Status Former smoker alcohol intake current alcohol intake frequency a few times a month Substance Use Type does not use Meds Home Medications and Allergies Home Medications Medication Instructions Recorded Confirmed Type atorvastatin 10 mg tablet 10 mg PO DAILY 11/18/21 07/08/22 History cetirizine 10 mg tablet 10 mg PO DAILY 11/18/21 07/08/22 History lisinopril 10 mg tablet 20 mg PO DAILY 11/18/21 07/08/22 History empagliflozin 25 mg tablet 25 mg PO DAILY 04/09/22 07/08/22 History (Jardiance) metformin 500 mg tablet,extended 500 mg PO BID 04/09/22 07/08/22 History release 24 hr aspirin 81 mg chewable tablet 81 mg PO DAILY 07/08/22 07/08/22 History (Aspirin Childrens) Allergies Allergy/AdvReac Type Severity Reaction Status Date / Time No Known Drug Allergies Allergy Verified 07/07/22 17:07 Review of Systems Review of Systems ROS: Yes All systems reviewed with the patient and are negative except as otherwise documented Exam Vital Signs (past 8 hours): - 07/08/22 08:47 07/08/22 07:00 Temperature 97.6 F Pulse Rate 61 61 Respiratory Rate 18 Blood Pressure 142/59 H 142/59 H Pulse Oximetry 96 Oxygen Flow Rate 0 Oxygen Delivery Method Room Air Oxygen Flow Rate 0 Const General: cooperative and well developed Nutritional Appearance: overweight [facility] Head: normocephalic and atraumatic Other: 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 Eyes General: appearance normal, both eyes and all related structures Sclera: sclerae normal Other: right eye vision loss, no jaundice and this point Neck Neck: trachea midline Chest Chest: normal inspection of the chest Resp Effort & Inspection: normal respiratory effort and able to speak in complete sentences Cardio Rate: regular rate Rhythm: regular rhythm GI Palpation: soft Other: mild epigastric tenderness Skin General: atrophy Lesions: no lesions Rashes: no rashes Hair: brittle and general thinning Neuro General: patient alert, patient awake and patient oriented x3 Cognition: normal cognition Extrem General: no calf tenderness Psych Mental Status: mental status grossly normal Affect: normal affect Judgment: judgment good Objective Labs Result Diagrams: 07/08/22 05:51 07/08/22 05:51 Labs: Laboratory Results - last 24 hr 07/07/22 07/07/22 07/07/22 17:35 17:35 19:56 WBC 9.1 RBC 4.60 Hgb 15.2 Hct 44.6 MCV 96.9 MCH 33.0 MCHC 34.0 RDW 15.1 H Plt Count 210 Neut % (Auto) 74.2 Lymph % (Auto) 16.0 L [place] % (Auto) 6.9 Eos % (Auto) 2.3 Baso % (Auto) 0.6 Neut # (Auto) 6700 Lymph # (Auto) 1400 [place] # (Auto) 600 Eos # (Auto) 200 Baso # (Auto) 100 Sodium 137 Potassium 4.2 Chloride 99 Carbon Dioxide 21 L BUN 32 H Creatinine 1.04 Estimated GFR > 60 BUN/Creatinine Ratio 30.8 H Glucose 113 H Calcium 9.2 Total Bilirubin 4.5 H AST 475 H ALT 890 H Alkaline Phosphatase 223 H Total Protein 8.1 Albumin 4.3 Globulin 3.8 Albumin/Globulin Ratio 1.1 Lipase 249 Urine Color Urine Appearance Urine pH Ur Specific [place] Urine Protein Urine Glucose (UA) Urine Ketones Urine Occult Blood Urine Nitrate Urine Bilirubin Ur Bilirubin Confirm Urine Urobilinogen Ur Leukocyte Esterase Urine RBC Urine WBC Ur Squamous Epith Cells Urine Bacteria Ur Culture Indicated? SARS-CoV-2 (PCR) Negative 07/08/22 07/08/22 07/08/22 04:40 05:51 05:51 WBC 8.3 RBC 4.41 L Hgb 14.3 Hct 43.0 MCV 97.4 MCH 32.3 MCHC 33.2 RDW 14.8 Plt Count 205 Neut % (Auto) 63.8 Lymph % (Auto) 19.5 L [place] % (Auto) 9.5 Eos % (Auto) 6.3 H Baso % (Auto) 0.9 Neut # (Auto) 5300 Lymph # (Auto) 1600 [place] # (Auto) 800 Eos # (Auto) 500 H Baso # (Auto) 100 Sodium 136 L Potassium 3.9 Chloride 102 Carbon Dioxide 20 L BUN 27 H Creatinine 0.91 Estimated GFR > 60 BUN/Creatinine Ratio 29.7 H Glucose 90 Calcium 8.9 Total Bilirubin 3.6 H AST 330 H ALT 742 H Alkaline Phosphatase 205 H Total Protein 7.2 Albumin 3.7 Globulin 3.5 Albumin/Globulin Ratio 1.1 Lipase Urine Color Dark yellow Urine Appearance Clear Urine pH 5.0 Ur Specific [place] 1.015 Urine Protein 1+ H Urine Glucose (UA) 2+ H Urine Ketones 2+ H Urine Occult Blood Negative Urine Nitrate Negative Urine Bilirubin 2+ H Ur Bilirubin Confirm Positive H Urine Urobilinogen 2.0 H Ur Leukocyte Esterase Negative Urine RBC None seen Urine WBC None seen Ur Squamous Epith Cells 0-1 /hpf Urine Bacteria None seen Ur Culture Indicated? Cult not indicated SARS-CoV-2 (PCR) Assessment & Plan Assessment & Plan narrative: cholelithiasis with GB wall thickening but no +larios sign or pericholecystic fluid. CBD dilation with elevated alkphos, t bili and transaminase Plan: Awaiting MRCP for determination if ERCP is needed and if so, what is the possibility of transfer. Of note, OR availability is past 7pm tonight and he is complex enough to deserve addition staff (beyond call only staff). He and understand the issues as explained and are waiting patiently. COVID-19 COVID-19 status: Negative Time Spent With Patient Time with patient: 50 to 69 minutes with 50% spent counseling/coordinating care Critical Care time: I spent a total of [] minutes of critical care time on this patient's care today; this time is exclusive of procedural time. Quality VTE Deep Vein Thrombosis/Pulmonary Embolism Present on Admission: No
--- NOTE | 2022-07-08 11:52 | CM.DANOTE ---
DCP/Assessment: Reviewed chart. Patient is a 76yr old female male admitted to [facility] with abdominal pain. PCP is Dr. Edgar. Primary payor is 1)[facility] Medicare. Met with patient and spouse/Soniya at bedside explained CM/SW role. Patient reports that he is completely I with all ADL's. Patient does not use any DME and plans to d/c home when stable. Currently patient with stones, MRCP scheduled for today. Patient reports that he was told that depending on results he will either have procedure here or transfer to higher level if needed. P: CM team to continue to follow as needed. Anticipate patient will d/c home when medically stable. CHANEL Hector Discharge Planning/Care Management Advanced directive, confirm from FAMILY Start: 07/08/22 00:49 Freq: Q24H Status: Active Protocol: Document 07/08/22 00:49 SH (Rec: 07/08/22 03:33 SH [id number]) Advance Directive, confirm on record Time 23:30 Person contacted patient Copy received No CM Discharge Assessment Start: 07/08/22 11:49 Freq: Status: Active Protocol: Document 07/08/22 11:49 KJS (Rec: 07/08/22 11:51 KJS [id number]) Discharge Planning Assessment Assigned Employee Communications Intern CHANEL Hector Contact Information Soniya Santillan (spouse) # [phone] Advance Directives? Yes Advance Directives on File No History Provided By Patient,Family Member,Medical Record Prior Living Arrangements Apartment/Condo Household Members spouse Type of transporation used prior to Drives own vehicle admit Independent with ADL's Yes Is patient alert and oriented? Yes Caregiver for Another No Comment Patient uses no DME at baseline. Barriers to Discharge No Discharge Plan Home Transportation Arrangement Family to provide transport. Referrals Initiated None needed Whiteboard Updated in Patient Room with Yes name and ext. # of Employee Communications Intern Review Status In Process Next Review Type Continued Stay Review
[2022-07-08] MEDS: SCOPOLAMINE 1 PATCH TOP (16:33)
[2022-07-08] MEDS: DEXTROSE 5%-0.9% NS 1,000 ML 125 ML IV (16:36)
[2022-07-08 17:02] VITALS: BP 125/52; PULSE 59; RESP 16; TEMP 36.4; O2SAT 97
[2022-07-08 20:40] VITALS: BP 124/45; PULSE 60; RESP 17; TEMP 36.2; O2SAT 99
[2022-07-09] VITALS (15 sets, daily range): BP systolic 123–154; BP diastolic 54–73; PULSE 56–89; RESP 13–36; TEMP 35.9–36.9; O2SAT 91–98; BMI 32.7
--- NOTE | 2022-07-09 | PATH_ITS ---
[facility] Accession Number: [id number] . 01 Material submitted: . gallbladder - GALLBLADDER . 01 Clinical history: . ABD. PAIN . 01 Diagnosis: Gallbladder, Cholecystectomy: Chronic cholecystitis, cholelithiasis, and cholesterolosis. Negative for dysplasia and malignancy. MRV 07/14/2022 1703 Local . 01 Electronically signed: . Shelbi Amador MD, Pathologist NPI- [id number] . 01 Gross description: . The specimen is received in formalin, labeled with the patient's name and gallbladder, and consists of a previously disrupted gallbladder measuring 8.4 x 3.6 x 1.7 cm with vincent to yellow smooth serosa and a hepatic surface that is roughened and is significant for a full-thickness defect measuring 2.2 cm in greatest dimension. The cystic duct is received closed with a clamp, is inked blue, and no pericystic lymph node is identified. Opening the specimen reveals three black, faceted calculi measuring up to 0.9 cm in greatest dimension admixed with a small amount of green mucoid bile. The mucosa is vincent and velvety and is diffusely discolored with pale yellow material consistent with cholesterol. No polyps or lesions are identified. The rubio average 0.5 cm thick. ([id number]) /FRR 07/11/2022 1602 Local . 01 Pathologist provided ICD-10: K81.1 . 01 CPT . 982971 Performed at: 01 [facility] [address] [place] [address], [place], [place] [id number] MD Low Etienne MD Phone: [phone]
[2022-07-09] MEDS: DEXTROSE 5%-0.9% NS 1,000 ML 125 ML IV (05:21)
[2022-07-09] MEDS: PIPERACILLIN/TAZO 3.375 GM in SODIUM CHLORIDE 0.9% 100 ML IV ×3 (05:21→20:46)
[2022-07-09 07:24] LABS: Add Manual Diff / Slide Review NO; Basophils Absolute Auto 100 /uL (0-100); Basophils Percent Auto 1.1 % (0-2); Eosinophils Absolute Auto 600 /uL (0-450); Eosinophils Percent Auto 7.9 % (2-4); Hematocrit 42.6 % (41-53); Hemoglobin 14.2 g/dL (13.5-17.5); Lymphocytes Absolute Auto 1800 /uL (1100-4500); Lymphocytes Percent Auto 23.9 % (25-40); Mean Corpuscular HGB Conc 33.4 % (30-36); Mean Corpuscular Hemoglobin 32.4 PG (26-34); Mean Corpuscular Volume 97.2 fL (80-100); Monocytes Absolute Auto 800 /uL (0-900); Monocytes Percent Auto 10.1 % (3-14); Neutrophils Absolute Auto 4400 /uL (1500-7000); Platelet Count 199 X10^3/uL (150-400); Red Blood Cell Count 4.39 X10^6/uL (4.5-5.9); Red Cell Distribution Width 15.2 % (11.6-14.8); White Blood Cell Count 7.7 X10^3/uL (4.5-11.0)
[2022-07-09 11:29] LABS: Alanine Aminotransferase 541 IU/L (<50); Albumin 3.4 g/dL (3.5-5.0); Alkaline Phosphatase 164 U/L (38-126); Aspartate Aminotransferase 181 IU/L (17-59); BUN Creatinine Ratio 22.3 (6-22); Bilirubin Total 1.6 mg/dL (0.2-1.3); Blood Urea Nitrogen 21 mg/dL (9-20); Calcium 8.6 mg/dL (8.4-10.2); Carbon Dioxide 24 mmol/L (22-32); Chloride 104 mmol/L (98-107); Estimated Glomerular Filt Rate > 60 mL/min (>60); Globulin 3.3 g/dL (1.7-4.1); Glucose 102 mg/dL (80-110); HEMOLYSIS < 15 (0-50); Potassium 4.2 mmol/L (3.4-5.1); Sodium 138 mmol/L (137-145); Total Protein 6.7 g/dL (6.3-8.2)
[2022-07-09] MEDS: LACTATED RINGERS 1,000 ML 42 ML IV ×2 (14:22→16:39)
--- NOTE | 2022-07-09 15:32 | PM.PREOP ---
Pre-operative Note Interval Note History & Physical reviewed/Exam performed by Physician: Yes Changes to H&P: No H&P completed within 30 days and has changed as indicated here:: 76-year-old man admitted with acute cholecystitis. Workup was significant for total bilirubin 3.6 and therefore an MRCP was performed that does not demonstrate evidence of common duct obstruction. I discussed with patient the rationale for the operation and an overview of its performance. We discussed operative risks including bleeding, infection, conversion to open, damage to surrounding structures, bile duct injury hernia formation, anesthetic complication and . His questions have been answered and he is in agreement with this plan.
--- NOTE | 2022-07-09 16:09 | SUR.OPER ---
Supine on padded OR bed, head on pillow, arms secured on padded arm boards at <90 degrees abduction, legs uncrossed, safety belt at thigh, tape over blanket over lower legs.
[2022-07-09] MEDS: BUPIVACAINE 0.25% (PF) VIAL 30 ML INJ (16:13)
--- NOTE | 2022-07-09 17:32 | P.OP_ITS ---
Operative Date/Time/Diagnoses Date of procedure: 07/09/22 Time of procedure: 17:32 Pre-op diagnosis: Acute cholecystitis Post-op diagnosis: other (Acute on chronic cholecystitis) Procedure & Clinicians Procedure: Laparoscopic cholecystectomy Same procedure as scheduled: Yes Indications: 76-year-old man who presented with a size symptoms and radiographic findings consistent with acute cholecystitis. Surgeon: Forest Longoria Click Yes if Unassisted: Yes Anesthesia Type: General Operative Notes Findings: Chronic cholecystitis. Thick walled gallbladder. Large gallstones impacted within the neck of the gallbladder. Specimen(s): other (Gallbladder) Estimated Blood Loss (mL): 100 Procedure in detail: The patient was placed supine on the table and bilateral lower extremity compression devices were applied. Anesthesia was induced they were intubated with an endotracheal tube and received 2g of Ancef. A time-out was performed. They were prepped and draped in sterile fashion. An infraumbilical incision was made, the umbilical stalk was elevated and the fascia was sharply incised entering the abdomen atraumatically. A blunt tip 12mm balloon trocar was then inserted, pneumoperitoneum was established and inspection of the abdomen demonstrated no evidence of injury. They were placed head up and right side up and then a 11 mm port was placed high in the epigastrium and two 5mm in the right upper quadrant. The gallbladder was grasped by the fundus and retracted over the liver and retracted laterally by the infundibulum. The gallbladder was chronically inflamed thick-walled with a large layer of fat. Using electrocautery the lateral plane between the gallbladder and the liver was opened towards the fundus. The gallbladder was then retracted laterally and the medial plane was developed in the same manner. With the gallbladder mobilized the bottom of the cystic plate was visualized. The hepatocystic triangle was meticulosly skeletonized of all fat and fibrous tissue from both the front and the back. Only two structures were then observed. Cystic artery was clearly visible and this was clipped and divided with Weck hemoclips. Given the degree of inflammation and the amount of stones impacted within the cystic neck I completed the remainder of the dissection in a top-down fashion until only the cystic duct was clearly seen entering the gallbladder. The cystic duct was divided in the same fashion. The gallbladder was removed from the liver bed using electro cautery. The liver bed was then inspected for hemostasis and this was achieved. The abdomen was irrigated with sterile saline and inspection was made that showed the clips in good position. The specimen was removed using Endo-Catch. The abdomen was desufflated. The umbilical fascia was closed with 0 Vicryl in a [id number] fashion under direct visualization. Skin incisions were irrigated and closed with 4-0 Monocryl. 30 ml of 0.25% bupivacaine was infiltrated into the subcutaneous tissue of the incisions. The wounds were sealed with Dermabond. Patient emerged from anesthesia was extub ated and transferred to recovery in stable condition. The sponge and instrument count at the end of the operation was correct. Complications: none Post-operative Condition: stable Disposition: Acute Care
[2022-07-09] MEDS: OXYCODONE IR 5 MG TABLET PO (18:57)
[2022-07-09] MEDS: IBUPROFEN 400 MG TABLET PO (20:45)
[2022-07-09] MEDS: METFORMIN XR 500 MG TABLET PO (20:46)
[2022-07-09] MEDS: FAMOTIDINE 20 MG TABLET PO (20:46)
[2022-07-09] MEDS: GABAPENTIN 300 MG CAPSULE PO (20:46)
[2022-07-10] VITALS (8 sets, daily range): BP systolic 123–167; BP diastolic 49–84; PULSE 56–71; RESP 15–22; TEMP 35.7–36.6; O2SAT 95–97
[2022-07-10] MEDS: OXYCODONE IR 5 MG TABLET PO ×2 (00:01→22:39)
[2022-07-10] MEDS: HYDROMORPHONE 0.5 MG INJ IV ×3 (00:38→08:01)
--- NOTE | 2022-07-10 00:48 | PC.NURSE ---
Pt. diaphoretic, pale & C/O increasing pain level even after 5 mg. of Oxycodone. Rechecked CBG 152, requesting pain medicine 0.5 mg. of Dilaudid admin. IVP. Ice pack applied to right side of his abdomen & pillow to splint his abdomen. Cold compress applied to his forehead, will monitor.
[2022-07-10] MEDS: ACETAMINOPHEN 325 MG TABLET 650 MG PO (01:40)
--- NOTE | 2022-07-10 02:19 | PC.NURSE ---
call center representative doctor paged to report pt. C/O constant pain even after medicated with available pain medications. Awaiting call back.
[2022-07-10] MEDS: OXYCODONE IR 10 MG TABLET PO (02:48)
[2022-07-10] MEDS: PIPERACILLIN/TAZO 3.375 GM in SODIUM CHLORIDE 0.9% 100 ML IV ×3 (04:33→19:59)
[2022-07-10] MEDS: IBUPROFEN 400 MG TABLET PO ×3 (06:10→20:22)
[2022-07-10] MEDS: GABAPENTIN 300 MG CAPSULE PO ×3 (06:10→20:22)
[2022-07-10 07:12] LABS: Add Manual Diff / Slide Review NO; Basophils Absolute Auto 0 /uL (0-100); Basophils Percent Auto 0.2 % (0-2); Eosinophils Absolute Auto 0 /uL (0-450); Hematocrit 46.7 % (41-53); Hemoglobin 15.5 g/dL (13.5-17.5); Lymphocytes Absolute Auto 900 /uL (1100-4500); Lymphocytes Percent Auto 6.3 % (25-40); Mean Corpuscular HGB Conc 33.2 % (30-36); Mean Corpuscular Hemoglobin 32.6 PG (26-34); Monocytes Absolute Auto 1000 /uL (0-900); Neutrophils Absolute Auto 12600 /uL (1500-7000); Neutrophils Percent Auto 86.5 % (50-75); Platelet Count 255 X10^3/uL (150-400); Red Blood Cell Count 4.77 X10^6/uL (4.5-5.9); Red Cell Distribution Width 15.5 % (11.6-14.8); White Blood Cell Count 14.6 X10^3/uL (4.5-11.0)
[2022-07-10] MEDS: METFORMIN XR 500 MG TABLET PO ×2 (08:01→20:21)
[2022-07-10] MEDS: lisinopriL 10 MG TABLET PO (08:01)
[2022-07-10 11:37] LABS: Alanine Aminotransferase 553 IU/L (<50); Albumin 4.3 g/dL (3.5-5.0); Albumin Globulin Ratio 1.1 (1.0-2.8); Alkaline Phosphatase 169 U/L (38-126); Aspartate Aminotransferase 230 IU/L (17-59); BUN Creatinine Ratio 23.7 (6-22); Bilirubin Total 1.9 mg/dL (0.2-1.3); Blood Urea Nitrogen 22 mg/dL (9-20); Calcium 8.9 mg/dL (8.4-10.2); Carbon Dioxide 19 mmol/L (22-32); Chloride 105 mmol/L (98-107); Estimated Glomerular Filt Rate > 60 mL/min (>60); Globulin 3.8 g/dL (1.7-4.1); Glucose 178 mg/dL (80-110); HEMOLYSIS < 15 (0-50); Potassium 4.1 mmol/L (3.4-5.1); Sodium 138 mmol/L (137-145); Total Protein 8.1 g/dL (6.3-8.2)
--- NOTE | 2022-07-10 17:02 | PM.PNPO.1 ---
Subjective Subjective Date Patient Seen: 07/10/22 Time Patient Seen: 17:02 Interval history: Right upper quadrant pain. No nausea vomiting. Poor appetite. Exam Vital Signs (past 8 hours): - 07/10/22 12:00 07/10/22 16:00 Temperature 97.9 F 97.6 F Pulse Rate 62 65 Respiratory Rate 17 15 Blood Pressure 146/52 H 138/49 L Pulse Oximetry 96 96 Oxygen Flow Rate 0 0 Oxygen Delivery Method Room Air Oxygen Flow Rate 0 Narrative Exam Narrative: General adult male alert oriented no acute distress Abdomen appropriately tender to palpation. Laparoscopic incisions clean dry intact Objective Labs Result Diagrams: 07/10/22 06:21 07/10/22 11:00 Labs: Laboratory Results - last 24 hr 07/10/22 07/10/22 06:21 11:00 WBC 14.6 H D RBC 4.77 Hgb 15.5 Hct 46.7 MCV 98.0 MCH 32.6 MCHC 33.2 RDW 15.5 H Plt Count 255 Neut % (Auto) 86.5 H D Lymph % (Auto) 6.3 L [place] % (Auto) 7.0 Eos % (Auto) 0.0 L Baso % (Auto) 0.2 Neut # (Auto) 93775 H Lymph # (Auto) 900 L [place] # (Auto) 1000 H Eos # (Auto) 0 Baso # (Auto) 0 Sodium 138 Potassium 4.1 Chloride 105 Carbon Dioxide 19 L BUN 22 H Creatinine 0.93 Estimated GFR > 60 BUN/Creatinine Ratio 23.7 H Glucose 178 H Calcium 8.9 Total Bilirubin 1.9 H AST 230 H ALT 553 H Alkaline Phosphatase 169 H Total Protein 8.1 Albumin 4.3 Globulin 3.8 Albumin/Globulin Ratio 1.1 PFSH Medical History Carpal tunnel syndrome on both sides Cataract associated with other syndromes DM (diabetes mellitus) HTN (hypertension) Hypercholesteremia Obstructive sleep apnea (adult) (pediatric) (2019) Tear, knee, medial meniscus Social History household members: spouse Smoking Status: Former smoker alcohol intake: current Assessment & Plan Post-op Postoperative Procedures: Procedures Operation Date: 07/09/22 14:15 Actual Procedure Side Surgeon p Laparoscopic Cholecystectomy Forest Longoria MD Postoperative status narrative: 76-year-old man postoperative day 1 status post laparoscopic cholecystectomy for acute on chronic cholecystitis. He is overall improving. Mild elevation of LFTs and WBC 14 noted, not unexpected postoperative day 1. If pain is improved and LFTs continue to down trend the may discharge home tomorrow Quality VTE Deep Vein Thrombosis/Pulmonary Embolism Present on Admission: No
[2022-07-10 18:24] LABS: Alanine Aminotransferase 478 IU/L (<50); Albumin 3.8 g/dL (3.5-5.0); Albumin Globulin Ratio 1.2 (1.0-2.8); Alkaline Phosphatase 151 U/L (38-126); Aspartate Aminotransferase 175 IU/L (17-59); BUN Creatinine Ratio 21.1 (6-22); Bilirubin Total 1.6 mg/dL (0.2-1.3); Blood Urea Nitrogen 20 mg/dL (9-20); Calcium 8.5 mg/dL (8.4-10.2); Carbon Dioxide 24 mmol/L (22-32); Chloride 102 mmol/L (98-107); Estimated Glomerular Filt Rate > 60 mL/min (>60); Globulin 3.3 g/dL (1.7-4.1); Glucose 159 mg/dL (80-110); HEMOLYSIS < 15 (0-50); Sodium 137 mmol/L (137-145); Total Protein 7.1 g/dL (6.3-8.2)
[2022-07-10] MEDS: SODIUM CHLORIDE 0.9% FLUSH 10 ML IV (19:59)
[2022-07-10] MEDS: SODIUM CHLORIDE 0.9% 250 ML 21 ML IV (19:59)
[2022-07-10] MEDS: FAMOTIDINE 20 MG TABLET PO (20:22)
[2022-07-11] VITALS (7 sets, daily range): BP systolic 101–144; BP diastolic 45–57; PULSE 65–78; RESP 16–20; TEMP 36.2–37.3; O2SAT 94–98
[2022-07-11] MEDS: PIPERACILLIN/TAZO 3.375 GM in SODIUM CHLORIDE 0.9% 100 ML IV (03:55)
[2022-07-11] MEDS: OXYCODONE IR 5 MG TABLET PO (04:01)
[2022-07-11] MEDS: IBUPROFEN 400 MG TABLET PO ×3 (05:42→21:31)
[2022-07-11] MEDS: GABAPENTIN 300 MG CAPSULE PO ×3 (05:42→21:31)
[2022-07-11 08:27] LABS: Add Manual Diff / Slide Review NO; Basophils Absolute Auto 0 /uL (0-100); Basophils Percent Auto 0.3 % (0-2); Eosinophils Absolute Auto 100 /uL (0-450); Eosinophils Percent Auto 0.4 % (2-4); Hematocrit 40.3 % (41-53); Hemoglobin 13.6 g/dL (13.5-17.5); Lymphocytes Absolute Auto 1200 /uL (1100-4500); Lymphocytes Percent Auto 8.5 % (25-40); Mean Corpuscular HGB Conc 33.8 % (30-36); Mean Corpuscular Hemoglobin 32.6 PG (26-34); Mean Corpuscular Volume 96.3 fL (80-100); Monocytes Absolute Auto 1300 /uL (0-900); Monocytes Percent Auto 9.1 % (3-14); Neutrophils Absolute Auto 11500 /uL (1500-7000); Neutrophils Percent Auto 81.7 % (50-75); Platelet Count 186 X10^3/uL (150-400); Red Blood Cell Count 4.18 X10^6/uL (4.5-5.9); Red Cell Distribution Width 15.5 % (11.6-14.8)
--- NOTE | 2022-07-11 08:40 | PC.NURSE ---
Addendum entered by Samuel Rothman R.N. 07/11/22 08:45: derma martinez intact to all three surgical sites. Original Note: Pt a&o sitting in chair visiting with . Pt offers no overt c/o and anticipates going home today.
[2022-07-11] MEDS: ENOXAPARIN 40 MG/0.4 ML SYRINGE SUBCUT (09:18)
[2022-07-11] MEDS: METFORMIN XR 500 MG TABLET PO ×2 (09:19→21:31)
[2022-07-11] MEDS: FAMOTIDINE 20 MG TABLET PO ×2 (09:22→21:31)
[2022-07-11] MEDS: SODIUM CHLORIDE 0.9% FLUSH 10 ML IV ×2 (09:24→21:32)
--- NOTE | 2022-07-11 11:10 | PM.PNPO.1 ---
Subjective Subjective Interval history: Mr. Santillan is feeling better today. He says he is eating normally his pain is controlled he feels he is ready to go home. His was at the bedside is a little bit uncomfortable with that and is afraid that we may end up back in the emergency room tomorrow if he has any issues. Exam Vital Signs (past 8 hours): - 07/11/22 04:00 07/11/22 07:39 07/11/22 09:21 Temperature 97.1 F L 97.6 F Pulse Rate 68 65 65 Respiratory Rate 20 18 Blood Pressure 143/55 H 101/47 L 101/47 L Pulse Oximetry 98 97 Oxygen Flow Rate 0 Oxygen Delivery Method Room Air Oxygen Flow Rate 0 Narrative Exam Narrative: Patient is pleasant awake alert oriented and seated in a chair His incisions are clean dry and intact he is appropriately tender around the incisions his abdomen is obese and maybe a little bit distended. Objective Labs Result Diagrams: 07/11/22 07:22 07/10/22 17:43 Labs: Laboratory Results - last 24 hr 07/10/22 07/10/22 07/11/22 11:00 17:43 07:22 WBC 14.0 H RBC 4.18 L Hgb 13.6 Hct 40.3 L MCV 96.3 MCH 32.6 MCHC 33.8 RDW 15.5 H Plt Count 186 Neut % (Auto) 81.7 H Lymph % (Auto) 8.5 L [place] % (Auto) 9.1 Eos % (Auto) 0.4 L Baso % (Auto) 0.3 Neut # (Auto) 29990 H Lymph # (Auto) 1200 [place] # (Auto) 1300 H Eos # (Auto) 100 Baso # (Auto) 0 Sodium 138 137 Potassium 4.1 4.0 Chloride 105 102 Carbon Dioxide 19 L 24 BUN 22 H 20 Creatinine 0.93 0.95 Estimated GFR > 60 > 60 BUN/Creatinine Ratio 23.7 H 21.1 Glucose 178 H 159 H Calcium 8.9 8.5 Total Bilirubin 1.9 H 1.6 H AST 230 H 175 H ALT 553 H 478 H Alkaline Phosphatase 169 H 151 H Total Protein 8.1 7.1 Albumin 4.3 3.8 Globulin 3.8 3.3 Albumin/Globulin Ratio 1.1 1.2 PFSH Medical History Carpal tunnel syndrome on both sides Cataract associated with other syndromes DM (diabetes mellitus) HTN (hypertension) Hypercholesteremia Obstructive sleep apnea (adult) (pediatric) (2019) Tear, knee, medial meniscus Social History household members: spouse Smoking Status: Former smoker alcohol intake: current Assessment & Plan Post-op Postoperative Procedures: Procedures Operation Date: 07/09/22 14:15 Actual Procedure Side Surgeon p Laparoscopic Cholecystectomy Forest Longoria MD Postoperative day: 2 Postoperative status: doing well Postoperative status narrative: Given the labs are still abnormal, though they are trending in the right direction. Due to the difficulty of the gallbladder surgery and the overall look of the patient. I think he could benefit from 1 more day in the hospital. This is more likely to ensure that we avoid readmission. Postoperative plan narrative: Today we are going to continue a regular diet continue pain medicines and DVT prophylaxis. We will check his labs in the morning. Quality VTE Deep Vein Thrombosis/Pulmonary Embolism Present on Admission: No
[2022-07-11] MEDS: ASPIRIN 81 MG CHEW TAB PO (12:54)
[2022-07-11] MEDS: LORATADINE 10 MG TABLET PO (12:54)
[2022-07-11 17:11] LABS: Alanine Aminotransferase 334 IU/L (<50); Albumin 3.7 g/dL (3.5-5.0); Alkaline Phosphatase 136 U/L (38-126); Aspartate Aminotransferase 100 IU/L (17-59); BUN Creatinine Ratio 26.4 (6-22); Bilirubin Total 1.5 mg/dL (0.2-1.3); Blood Urea Nitrogen 24 mg/dL (9-20); Calcium 8.7 mg/dL (8.4-10.2); Carbon Dioxide 23 mmol/L (22-32); Chloride 101 mmol/L (98-107); Estimated Glomerular Filt Rate > 60 mL/min (>60); Globulin 3.6 g/dL (1.7-4.1); Glucose 142 mg/dL (80-110); HEMOLYSIS 20 (0-50); Potassium 3.7 mmol/L (3.4-5.1); Sodium 135 mmol/L (137-145); Total Protein 7.3 g/dL (6.3-8.2)
[2022-07-11] MEDS: DOCUSATE 100 MG CAPSULE PO (21:31)
[2022-07-12 07:49] VITALS: BP 120/70; PULSE 79; RESP 20; TEMP 36.7; O2SAT 93
[2022-07-12 09:41] LABS: Hematocrit 41.6 % (41-53); Hemoglobin 14.1 g/dL (13.5-17.5); Mean Corpuscular HGB Conc 33.8 % (30-36); Mean Corpuscular Hemoglobin 32.8 PG (26-34); Mean Corpuscular Volume 96.9 fL (80-100); Platelet Count 185 X10^3/uL (150-400); Red Blood Cell Count 4.29 X10^6/uL (4.5-5.9); Red Cell Distribution Width 15.2 % (11.6-14.8); White Blood Cell Count 9.7 X10^3/uL (4.5-11.0)
[2022-07-12 09:56] LABS: Alanine Aminotransferase 254 IU/L (<50); Albumin 3.4 g/dL (3.5-5.0); Alkaline Phosphatase 113 U/L (38-126); Aspartate Aminotransferase 70 IU/L (17-59); Bilirubin Total 1.7 mg/dL (0.2-1.3); Blood Urea Nitrogen 24 mg/dL (9-20); Calcium 8.5 mg/dL (8.4-10.2); Carbon Dioxide 21 mmol/L (22-32); Chloride 102 mmol/L (98-107); Estimated Glomerular Filt Rate > 60 mL/min (>60); Globulin 3.4 g/dL (1.7-4.1); Glucose 128 mg/dL (80-110); HEMOLYSIS < 15 (0-50); Potassium 3.7 mmol/L (3.4-5.1); Sodium 135 mmol/L (137-145); Total Protein 6.8 g/dL (6.3-8.2)
[2022-07-12] MEDS: DOCUSATE 100 MG CAPSULE PO (10:00)
[2022-07-12] MEDS: METFORMIN XR 500 MG TABLET PO (10:00)
[2022-07-12] MEDS: ASPIRIN 81 MG CHEW TAB PO (10:00)
[2022-07-12] MEDS: LORATADINE 10 MG TABLET PO (10:00)
[2022-07-12] MEDS: FAMOTIDINE 20 MG TABLET PO (10:00)
[2022-07-12 10:17] VITALS: BP 120/70; PULSE 79
[2022-07-12] MEDS: lisinopriL 10 MG TABLET PO (10:17)
--- NOTE | 2022-07-12 12:04 | PC.NURSE ---
Patient is A&OX3, VSS, afebrile. 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 He reports pain tolerable at 2/10 and has been ambulating independently in the room. He reports minimal gas and has active BS. He eats breakfast and tolerates it well. Lab work completed this a.m. and MD at bedside reviewing results and evaluating patient this a.m. He is cleared for discharge home today with follow up with Dr. Dash this week. He and his verbalize understanding of discharge instructions, medications, activity, site care and s/sx of infection. He is escorted by RN via w/ch to private vehicle with his for discharge home at 1140 this a.m.
--- NOTE | 2022-07-12 12:04 | PM.DS.1 ---
History of Present Illness History of Present Illness Chief complaint: ABD. PAIN Narrative: Mr. Ndiaye presented with acute cholecystitis and underwent cholecystectomy. His gallbladder intraoperatively was very inflamed chronically inflamed and difficult to dissect. Ultimately the surgery went well. Postoperatively he had some leukocytosis and elevated liver function tests and bilirubin which were trended over past several days postop and continue to improve. Postoperatively he did well his pain was controlled he was able to eat his wounds were clean dry and intact. On postoperative day 3 he was sent home in good condition. He was given standard follow-up instructions as well as information on how to contact the surgeons if there are any further questions or concerns. Discharge Providers Provider Date of admission: 07/07/22 21:16 Discharge Date: 07/12/22 Primary care physician: Benson Edgar MD Discharge provider: Tricia Dash MD Exam Vital Signs (past 8 hours): - 07/12/22 07:49 07/12/22 10:17 Temperature 98.0 F Pulse Rate 79 79 Respiratory Rate 20 Blood Pressure 120/70 120/70 Pulse Oximetry 93 Oxygen Flow Rate 0 Oxygen Delivery Method Room Air Oxygen Flow Rate 0 Narrative Exam Narrative: The patient is awake alert oriented in no acute distress His wounds are clean dry and intact his abdomen is soft and nontender. Lower extremities are nonedematous and nontender. Objective Labs Result Diagrams: 07/12/22 09:10 07/12/22 09:10 Labs: Laboratory Results - last 24 hr 07/11/22 07/12/22 07/12/22 16:50 09:10 09:10 WBC 9.7 RBC 4.29 L Hgb 14.1 Hct 41.6 MCV 96.9 MCH 32.8 MCHC 33.8 RDW 15.2 H Plt Count 185 Sodium 135 L 135 L Potassium 3.7 3.7 Chloride 101 102 Carbon Dioxide 23 21 L BUN 24 H 24 H Creatinine 0.91 0.89 Estimated GFR > 60 > 60 BUN/Creatinine Ratio 26.4 H 27.0 H Glucose 142 H 128 H Calcium 8.7 8.5 Total Bilirubin 1.5 H 1.7 H AST 100 H 70 H ALT 334 H 254 H Alkaline Phosphatase 136 H 113 Total Protein 7.3 6.8 Albumin 3.7 3.4 L Globulin 3.6 3.4 Albumin/Globulin Ratio 1.0 1.0 [facility] Medical History Carpal tunnel syndrome on both sides Cataract associated with other syndromes DM (diabetes mellitus) HTN (hypertension) Hypercholesteremia Obstructive sleep apnea (adult) (pediatric) (2019) Tear, knee, medial meniscus Social History household members: spouse Smoking Status: Former smoker alcohol intake: current Discharge Assessment & Plan Assessment and Plan Assessment: Doing well postop day 3 status post difficult cholecystectomy today his pain is controlled his labs are improved and he has been tolerating a regular diet. He is on Colace to prevent constipation and I discussed with him using MiraLax if he does not have a bowel movement and starts to feel constipated. I also counseled him that if he has any questions or concerns he should call the office during business hours. If there is an issue outside of business hours 1 of the [facility] is on-call 10/05 and can help him manage any issues come up. Discharge Plan Discharge Plan Patient Disposition: Home Discharge orders & Medications Prescriptions: New oxycodone 5 mg tablet 5 mg PO Q6H PRN (Reason: pain) Qty: 14 0RF ibuprofen 400 mg tablet 400 mg PO Q6H Qty: 14 0RF docusate sodium [Colace] 100 mg capsule 100 mg PO BID Qty: 14 0RF acetaminophen 500 mg capsule 1,000 mg PO Q6H Qty: 30 0RF Continued cetirizine 10 mg tablet 10 mg PO DAILY Label Comments: TAKE ONE TABLET BY MOUTH ONCE DAILY NEEDED atorvastatin 10 mg tablet 10 mg PO DAILY Label Comments: TAKE ONE TABLET BY MOUTH ONE TIME DAILY lisinopril 10 mg tablet 20 mg PO DAILY Label Comments: TAKE TWO TABLETS BY MOUTH ONCE DAILY metformin 500 mg tablet extended release 24 hr 500 mg PO BID aspirin [Aspirin Childrens] 81 mg Tablet,Chewable 81 mg PO DAILY Jardiance 25 mg tablet 25 mg PO DAILY Follow up/Referrals: Benson Edgar MD [Primary Care Provider] - Tricia Dash MD [Physician] - (Dr. Longoria was your surgeon. ) Diet/Activity/Treatments Diet: Diet as Tolerated and Carb-consistent/Diabetic Visit Report/Discharge Packet Instructions: DI for Laparoscopy, DI for Prescription Opioid Use Discharge Data Primary Care Provider: Herve,Benson W Attending Provider: Shelbi Merritt VTE Deep Vein Thrombosis/Pulmonary Embolism Present on Admission: No
--- NOTE | 2022-07-29 11:17 | PC.NURSE ---
Late Entry; Piperacillin infusion initiated on 07/07 at 2135 complete at 2206.
== END 2022-07-12 11:40 | disposition home or self-care (01) ==
LOC: ED 19:50 → AC 22:43
PROVIDERS: Emergency Medicine; Surgery; Admitting Provider Surgery; Emergency Provider Emergency Medicine; PCP Internal Medicine; Referring Provider Emergency Medicine; Visit Provider Surgery
PROC: 0FT44ZZ Resection of Gallbladder, Percutaneous Endoscopic Approach (ICD-10-PCS; CPT 47562; principal; 2022-07-09 14:15)
DX: K80.12 Calculus of gallbladder with acute and chronic cholecystitis without obstruction (principal); E11.9 Type 2 diabetes mellitus without complications; Z79.84 Long term (current) use of oral hypoglycemic drugs; G47.33 Obstructive sleep apnea (adult) (pediatric); I10 Essential (primary) hypertension; Z20.822 Contact with and (suspected) exposure to COVID-19; R10.9 Unspecified abdominal pain; K80.80 Other cholelithiasis without obstruction; K76.0 Fatty (change of) liver, not elsewhere classified; N40.0 Benign prostatic hyperplasia without lower urinary tract symptoms
CPT/HCPCS: 47562; 36415; 74177; 74181; 76705; 80053; 81001; 82565; 82962; 83690; 85025; 85027; 87635; 93005; 93010; 96361; 96365; 96366; 96372; 96375; 96376; 99219; 99283; 99284; C9803; G0378; A9270; J1100; J1170; J1650; J2405; J2543; J2704; J3010

== ENCOUNTER → 2023-03-23 10:00 | Outpatient (CLI) | payer MEDICARE, SELFPAY ==
[2022-07-07 22:28] VITALS: BMI 32.7
[2023-03-23 12:55] LABS: Alanine Aminotransferase 35 IU/L (<50); Albumin Globulin Ratio 1.4 (1.0-2.8); Alkaline Phosphatase 57 U/L (38-126); Aspartate Aminotransferase 32 IU/L (17-59); BUN Creatinine Ratio 25.3 (6-22); Bilirubin Total 0.5 mg/dL (0.2-1.3); Blood Urea Nitrogen 21 mg/dL (9-20); Calcium 9.3 mg/dL (8.4-10.2); Carbon Dioxide 27 mmol/L (22-32); Chloride 103 mmol/L (98-107); Estimated Glomerular Filt Rate > 60 mL/min (>60); Globulin 2.8 g/dL (1.7-4.1); Glucose 125 mg/dL (80-110); HEMOLYSIS < 15 (0-50); Potassium 4.3 mmol/L (3.4-5.1); Sodium 139 mmol/L (137-145); Total Protein 6.8 g/dL (6.3-8.2)
[2023-03-23 13:35] LABS: Prostate Specific Antigen Scrn 1.64 ng/mL (0.1-4.0)
[2023-03-24 05:44] LABS: x Labcorp Estim. Avg Glu (eAG) 143 mg/dL (.); x Labcorp Hemoglobin A1c 6.6 % (4.8-5.6)
== END ==
PROVIDERS: PCP Family Medicine; Referring Provider Family Medicine; Visit Provider Family Medicine
DX: Z12.5 Encounter for screening for malignant neoplasm of prostate (principal); R73.03 Prediabetes; I10 Essential (primary) hypertension
CPT/HCPCS: 36415; 80053; 83036; G0103

== ENCOUNTER → 2023-09-21 12:24 | Outpatient (CLI) | payer MEDICARE, SELFPAY ==
[2022-07-07 22:28] VITALS: BMI 32.7
[2023-09-21 13:20] LABS: Hemoglobin A1C% w Est Avg Glu 7.1 % (4.0-6.0)
== END ==
PROVIDERS: PCP Family Medicine; Referring Provider Family Medicine; Visit Provider Family Medicine
DX: R73.03 Prediabetes (principal); I10 Essential (primary) hypertension
CPT/HCPCS: 36415; 83036

== ENCOUNTER → 2023-10-25 10:49 | Outpatient (CLI) | payer MEDICARE, SELFPAY ==
[2022-07-07 22:28] VITALS: BMI 32.7
--- NOTE | 2023-10-25 10:52 | DI.RAD.S_ITS ---
PROCEDURE: XR HIP W PEL IF DONE RT 2V INDICATIONS: pain near buttocks that radiates down entire right leg TECHNIQUE: Two views of the hip were acquired. COMPARISON: None. FINDINGS: Bones: No fractures or dislocations. No suspicious bony lesions. The visualized pelvic ring appears intact. Moderate right hip osteoarthrosis. Soft tissues: No suspicious soft tissue calcifications or masses. IMPRESSION: Moderate right hip osteoarthrosis. No acute osseous abnormality. If the symptoms persist, consider cross sectional imaging such as MRI or CT for further assessment. Approved by: Brandt Salguero M.D. on 10/25/2023 at 16:33
--- NOTE | 2023-10-25 10:52 | DI.RAD.S_ITS ---
PROCEDURE: XR FEMUR RT MIN 2V INDICATIONS: pain near buttocks that radiates down entire right leg TECHNIQUE: 2 views of the femur were acquired. COMPARISON: None. FINDINGS: Bones: No acute fractures or dislocations. No suspicious bony lesions. Soft tissues: No suspicious soft tissue calcifications. IMPRESSION: Moderate right hip osteoarthrosis. No acute osseous abnormality. If the symptoms persist, consider cross sectional imaging such as MRI or CT for further assessment. Approved by: Brandt Salguero M.D. on 10/25/2023 at 16:33
--- NOTE | 2023-10-25 10:52 | DI.RAD.S_ITS ---
PROCEDURE: XR TIBIA FUBULA RT 2V INDICATIONS: pain near buttocks that radiates down entire right leg TECHNIQUE: 2 views of the tibia and fibula were acquired. COMPARISON: None. FINDINGS: Bones: Small osseous protuberance at the anterolateral aspect of the distal tibial plafond may be secondary to remote prior trauma or a benign osteochondroma. No suspicious bony lesions. Mild degenerative changes in the right knee. Soft tissues: Calcifications are seen along the distal Achilles tendon near its insertion. IMPRESSION: Small osseous protuberance at the anterolateral aspect of the distal tibia is likely related to remote prior trauma versus a benign osteochondroma. Approved by: Brandt Salguero M.D. on 10/25/2023 at 16:35
== END ==
LOC: RAD 10:51
PROVIDERS: PCP Family Medicine; Referring Provider Family Medicine; Visit Provider Family Medicine
DX: M16.11 Unilateral primary osteoarthritis, right hip (principal); M25.551 Pain in right hip; M54.50 Low back pain, unspecified; M79.604 Pain in right leg
CPT/HCPCS: 73502; 73552; 73590

== ENCOUNTER → 2024-02-24 08:28 | Outpatient (CLI) | payer MEDICARE, SELFPAY ==
[2022-07-07 22:28] VITALS: BMI 32.7
[2024-02-24 09:52] LABS: Hemoglobin A1C% w Est Avg Glu 6.6 % (4.0-6.0)
[2024-02-24 10:19] LABS: Alanine Aminotransferase 28 IU/L (<50); Albumin Globulin Ratio 1.4 (1.0-2.8); Alkaline Phosphatase 55 U/L (38-126); Aspartate Aminotransferase 27 IU/L (17-59); BUN Creatinine Ratio 31.7 (6-22); Bilirubin Total 0.8 mg/dL (0.2-1.3); Blood Urea Nitrogen 26 mg/dL (9-20); Calcium 9.4 mg/dL (8.4-10.2); Carbon Dioxide 25 mmol/L (22-32); Chloride 105 mmol/L (98-107); Estimated Glomerular Filt Rate > 60 mL/min (>60); Globulin 2.8 g/dL (1.7-4.1); Glucose 109 mg/dL (80-110); HEMOLYSIS < 15 (0-50); Potassium 4.4 mmol/L (3.4-5.1); Sodium 139 mmol/L (137-145); Total Protein 6.8 g/dL (6.3-8.2)
[2024-02-24 10:51] LABS: Prostate Specific Antigen Scrn 1.56 ng/mL (0.1-4.0)
== END ==
PROVIDERS: PCP Family Medicine; Referring Provider Family Medicine; Visit Provider Family Medicine
DX: Z12.5 Encounter for screening for malignant neoplasm of prostate (principal); E11.9 Type 2 diabetes mellitus without complications; I10 Essential (primary) hypertension
CPT/HCPCS: 36415; 80053; 83036; G0103

== ENCOUNTER → 2024-03-27 08:11 | Outpatient (CLI) | payer MEDICARE, SELFPAY ==
[2022-07-07 22:28] VITALS: BMI 32.7
--- NOTE | 2024-03-27 08:35 | DI.RAD.S_ITS ---
PROCEDURE: XR CHEST 2V INDICATIONS: Cough, crackles TECHNIQUE: 2 views of the chest were acquired. COMPARISON: None. FINDINGS: Surgical changes and devices: None. Lungs and pleura: Diffuse interstitial changes. Question mild interstitial pulmonary edema. No pleural effusions or pneumothorax. Mediastinum: Mediastinal contours are normal. Heart size is normal. Bones and chest wall: No suspicious bony abnormalities. Soft tissues appear unremarkable. IMPRESSION: Diffuse interstitial changes. Question mild acute interstitial pulmonary edema. Dictated by: Paul Matthew M.D. on 03/27/2024 at 9:21 Approved by: Paul Matthew M.D. on 03/27/2024 at 9:36
[2024-03-27 08:53] LABS: COVID-19 CEPHEID 4-PLEX PCR POSITIVE (Negative); Influenza A - CEPHEID Flu A NEGATIVE (NEGATIVE); Influenza B - CEPHEID Flu B NEGATIVE (NEGATIVE); Respiratory Syncytial Virus Negative (Negative)
== END ==
PROVIDERS: PCP Family Medicine; Visit Provider Physician Assistant Surgical
DX: R05.1 Acute cough (principal); R05.9 Cough, unspecified
CPT/HCPCS: 0241U; 71046

== ENCOUNTER 2024-06-06 12:46 | Day surgery (SDC) | payer MEDICARE, SELFPAY ==
[2022-07-07 22:28] VITALS: BMI 32.7
[2024-06-06] MEDS: LACTATED RINGERS 1,000 ML 42 ML IV (13:17)
--- NOTE | 2024-06-06 13:21 | P.HP_ITS ---
History of Present Illness History of Present Illness Date Patient Seen: 06/06/24 Time Patient Seen: 13:21 Chief complaint: Colonoscopy Narrative: 78-year-old man here for screening colonoscopy. No family history of colon cancer. No abdominal concerns today. Last colonoscopy 12 years ago. [facility] Medical History Pulmonary edema COVID-19 Medicare annual wellness visit, subsequent Encounter for well adult exam with abnormal findings Lower extremity pain Left hip pain Lower back pain Fractures (~1957) Ankle pain (~1958) Mumps (~1953) Measles (~1952) Chicken pox (~1951) Vertigo Atrial flutter (~2020) Skin cancer (~2019) Acute cholecystitis Obstructive sleep apnea (adult) (pediatric) (2019) Cataract associated with other syndromes Tear, knee, medial meniscus Carpal tunnel syndrome on both sides DM (diabetes mellitus) (~2009) HTN (hypertension) Hypercholesteremia Surgical History Anesthesia History of carpal tunnel release (~2022) History of cholecystectomy (~2021) History of cataract removal with insertion of prosthetic lens (~2021) History of cardiac radiofrequency ablation (~2020) History of knee surgery (~2017) History of eye surgery (~1952) Family History Father History of heart attack Mother Cancer Sister Cancer Grandfather Cancer Social History household members: spouse Smoking Status: Former smoker alcohol intake: current Meds Home Medications and Allergies Home Medications Medication Instructions Recorded Confirmed Type aspirin 81 mg chewable tablet 81 mg PO DAILY 07/08/22 03/28/24 History (Aspirin Childrens) cetirizine 10 mg tablet See Rx Instructions .Route 04/09/23 03/28/24 Rx .COMPLEX #90 tabs lisinopril 20 mg tablet See Rx Instructions .Route 12/29/23 06/06/24 Rx .COMPLEX #90 tabs atorvastatin 10 mg tablet 10 mg PO DAILY #90 tabs 03/03/24 03/28/24 Rx empagliflozin 25 mg tablet 25 mg PO DAILY #90 tabs 03/03/24 03/28/24 Rx (Jardiance) ketoconazole 2 % shampoo topical 03/03/24 03/28/24 History ketoconazole 2 % topical cream 1 applic topical 03/03/24 03/28/24 History metformin 500 mg tablet,extended 500 mg PO BID #180 tabs 03/03/24 06/06/24 Rx release 24 hr triamcinolone acetonide 0.1 % 1 applic topical 03/03/24 03/28/24 History topical cream benzonatate 200 mg capsule 200 mg PO BID PRN cough #30 caps 03/27/24 03/28/24 Rx ipratropium bromide 21 mcg (0.03 2 spray intranasal BID PRN 03/27/24 03/28/24 Rx %) nasal spray Postnasal drip #30 mL albuterol sulfate 90 mcg/actuation 2 puff inhalation Q6H PRN 03/28/24 06/06/24 Rx aerosol inhaler shortness of breath or wheezing #6.7 grams nirmatrelvir 300 mg (150 mg See Rx Instructions PO .COMPLEX 03/28/24 03/28/24 Rx x2)-ritonavir 100 mg tablet,dose #30 ea pack (Paxlovid) prednisone 20 mg tablet 40 mg (2 x 20 mg) PO DAILY #10 tabs 03/28/24 03/28/24 Rx empagliflozin 25 mg tablet 25 mg PO DAILY 06/06/24 06/06/24 History (Jardiance) Allergies Allergy/AdvReac Type Severity Reaction Status Date / Time No Known Drug Allergies Allergy Verified 03/28/24 08:14 Exam Narrative Exam Narrative: General adult man alert oriented no acute distress Chest nonlabored respiration Extremities warm well perfused Assessment & Plan Assessment & Plan narrative: The patient requires colorectal screening and colonoscopy is recommended. Technical details were discussed. Risks, benefits, alternatives explained. Risks including but not limited to myocardial infarction, aspiration, bleeding, pain, missed lesion, incomplete examination, need for further radiographic studies, intestinal injury, and need for major abdominal surgery were discussed. All questions were answered to their satisfaction, and they are in agreement with this plan. Time-Based Coding :: [TOTAL MINUTES] spent with patient and on the chart (including review of chart, obtaining history, exam, reviewing outside data, placing orders, documenting exam and treatment plan, and counseling patient) on [DATE].
[2024-06-06 13:26] VITALS: BP 179/92; PULSE 80; RESP 20; TEMP 36.7; O2SAT 97; BMI 33.0
--- NOTE | 2024-06-06 13:41 | P.OP.COLON_ITS ---
Operative Date/Time/Diagnoses Date of procedure: 06/06/24 Time of procedure: 13:41 Pre-op diagnosis: Colorectal screening Procedure & Clinicians Study performed: Colonoscopy Same procedure as scheduled: Yes Indications: Colorectal screening Surgeon: Forest Longoria Procedure Notes Procedure in detail: The history and physical was performed/updated and the patient is ASA class is 2. The procedure was discussed in detail with the patient. Potential risks complications including infection, bleeding, missed diagnosis, perforation, need for surgery, and were explained. Their questions were answered and informed consent was obtained. Patient was brought to the procedure room and placed standard monitoring equipment. The patient's vital signs were monitored continuously throughout the entire procedure. Prior to starting time-out was performed. The patient was placed in the left lateral recumbent position. Procedural sedation was administered by anesthesia. Examination began with a thorough inspection of the perianal area there was no evidence of fissures, fistulae, external hemorrhoids or cutaneous malignancy. The colonoscopy scope was then placed into the anal canal and was advanced to the cecum, which was identified by the ileocecal valve , the appendiceal orifice and the confluence of the taenia. The scope was then slowly withdrawn examining colon thoroughly in all directions, irrigating it of any residual stool. The scope was retroflexed within the rectum The patient tolerated the procedure well. They will be discharged once criteria are met. The prep was of good/excellent quality. The withdrawl time was 6 minutes. FINDINGS * Mild diverticulosis of descending colon * Internal hemorrhoids * No polyps or mass Post-procedure Recommendations: High fiber diet Plan for aftercare: No need for further colonoscopy unless symptomatic Disposition: same day surgery
[2024-06-06 14:08] VITALS: BP 110/57; PULSE 66; RESP 14; TEMP 36.2; O2SAT 96
[2024-06-06 14:12] VITALS: BP 116/61; PULSE 69; RESP 18; O2SAT 97
[2024-06-06 14:24] VITALS: BP 120/52; PULSE 70; RESP 16; TEMP 36.6; O2SAT 96
== END 2024-06-06 14:38 | disposition home or self-care (01) ==
PROVIDERS: PCP Family Medicine; Referring Provider Surgery; Visit Provider Surgery
PROC: 0DJD8ZZ Inspection of Lower Intestinal Tract, Via Natural or Artificial Opening Endoscopic (ICD-10-PCS; CPT 45378; principal; 2024-06-06 14:15)
DX: Z12.11 Encounter for screening for malignant neoplasm of colon (principal); K57.30 Diverticulosis of large intestine without perforation or abscess without bleeding; K64.8 Other hemorrhoids
CPT/HCPCS: G0121; J2704

== ENCOUNTER → 2024-06-21 07:38 | Outpatient (CLI) | payer MEDICARE, SELFPAY ==
[2022-07-07 22:28] VITALS: BMI 32.7
[2024-06-21 08:50] LABS: Add Manual Diff / Slide Review NO; Basophils Absolute Auto 100 /uL (0-100); Basophils Percent Auto 0.8 % (0-2); Eosinophils Absolute Auto 500 /uL (0-450); Hematocrit 37.7 % (41-53); Hemoglobin 12.5 g/dL (13.5-17.5); Lymphocytes Absolute Auto 2500 /uL (1100-4500); Lymphocytes Percent Auto 27.5 % (25-40); Mean Corpuscular HGB Conc 33.3 % (30-36); Mean Corpuscular Hemoglobin 31.9 PG (26-34); Mean Corpuscular Volume 95.9 fL (80-100); Monocytes Absolute Auto 800 /uL (0-900); Monocytes Percent Auto 8.5 % (3-14); Neutrophils Absolute Auto 5300 /uL (1500-7000); Neutrophils Percent Auto 58.2 % (50-75); Platelet Count 295 X10^3/uL (150-400); Red Blood Cell Count 3.93 X10^6/uL (4.5-5.9); Red Cell Distribution Width 15.1 % (11.6-14.8); White Blood Cell Count 9.1 X10^3/uL (4.5-11.0)
[2024-06-21 09:25] LABS: Hemoglobin A1C% w Est Avg Glu 5.9 % (4.0-6.0)
[2024-06-21 09:28] LABS: Alanine Aminotransferase 20 IU/L (<50); Albumin 3.8 g/dL (3.5-5.0); Albumin Globulin Ratio 1.4 (1.0-2.8); Alkaline Phosphatase 55 U/L (38-126); Aspartate Aminotransferase 23 IU/L (17-59); BUN Creatinine Ratio 27.3 (6-22); Bilirubin Total 0.3 mg/dL (0.2-1.3); Blood Urea Nitrogen 24 mg/dL (9-20); Calcium 9.3 mg/dL (8.4-10.2); Carbon Dioxide 25 mmol/L (22-32); Chloride 107 mmol/L (98-107); Cholesterol 132 mg/dL (140-199); Estimated Glomerular Filt Rate > 60 mL/min (>60); Globulin 2.7 g/dL (1.7-4.1); Glucose 133 mg/dL (80-110); HDL Cholesterol 41 mg/dL (40-60); HEMOLYSIS < 15 (0-50); LDL Cholesterol Calculated 73 mg/dL (<100); Potassium 4.2 mmol/L (3.4-5.1); Sodium 140 mmol/L (137-145); Total Protein 6.5 g/dL (6.3-8.2); Triglycerides 89 mg/dL (35-150)
== END ==
PROVIDERS: PCP Family Medicine; Referring Provider Family Medicine; Visit Provider Family Medicine
DX: E78.00 Pure hypercholesterolemia, unspecified (principal); E11.36 Type 2 diabetes mellitus with diabetic cataract; I10 Essential (primary) hypertension; Z79.899 Other long term (current) drug therapy
CPT/HCPCS: 36415; 80053; 80061; 83036; 85025

== ENCOUNTER → 2024-10-20 11:58 | Outpatient (CLI) | payer MEDICARE, SELFPAY ==
[2022-07-07 22:28] VITALS: BMI 32.7
--- NOTE | 2024-10-20 11:59 | DI.ECHO.S_ITS ---
[facility] : : [address] : : [place] : : [id number] : : Phone: [phone] Echocardiogram Report + + :Name: COLLEEN AYON Study Date: 10/20/2024 Height: 69 in : :[facility] ReadingLocation: Weight: 230 lb : : Gender: Male BSA: 2.2 m2 : :: 1945 Age: 79 yrs BP: 157/71 mmHg: :Reason For Study: CARDIOMYOPATHY : :Ordering Physician: CIERA, : :ESTEFANI Friedman Performed By: Matthew Loaiza : :Referring: ESTEFANI GOOD : + + Interpretation Summary Left ventricular wall thickness is mildly increased. The ejection fraction is estimated to be 50-55%. Grade I diastolic dysfunction. The left atrium is severely dilated. The right ventricle is normal in size and function. The right atrium is moderately dilated. There is mild mitral regurgitation. There is mild aortic regurgitation. There is mild tricuspid regurgitation. The right ventricular systolic pressure is estimated to be at least 29 mmHg based on an estimated right atrial pressure of 3 mm Hg. The ascending aorta is mildly enlarged, 4.1 cm. Compared to the prior study dated 02/21/2021, the left ventricle is slightly more dynamic. Procedure: A two-dimensional transthoracic echocardiogram with color flow and Doppler was performed. The study quality was technically good. Comparison is made with the echocardiogram of 02/21/2021. The patient was in normal sinus rhythm during the exam. Left Ventricle: The left ventricle is normal in size. Left ventricular wall thickness is mildly increased. There is no ventricular septal defect visualized. The ejection fraction is estimated to be 50-55%. Diastolic parameters suggest a relaxation abnormality of the left ventricle, consistent with probable normal filling pressures. Right Ventricle: The right ventricle is normal in size and function. Atria: The left atrium is severely dilated. The right atrium is moderately dilated. There is no Doppler evidence for an atrial septal defect. Mitral Valve: There is mild mitral annular calcification. The mitral valve leaflets are mildly calcified. There is mild mitral regurgitation. Aortic Valve: The aortic valve is trileaflet. The aortic valve is mildly calcified. The aortic valve opens well. There is no aortic valve stenosis. There is mild aortic regurgitation. Tricuspid Valve: The tricuspid valve leaflets are thin and pliable. There is mild tricuspid regurgitation. The right ventricular systolic pressure is estimated to be at least 29 mmHg based on an estimated right atrial pressure of 3 mm Hg. Pulmonic Valve: The pulmonic valve is not well seen, but is grossly normal. Great Vessels: The aortic root is mildly dilated. The ascending aorta is mildly enlarged. The pulmonary artery is normal size. The IVC is of normal diameter and collapses greater than 50% with a sniff. This suggests a low right atrial pressure of 3 mm Hg. Pericardium/ Pleura There is no pericardial effusion. MMode/2D Measurements & Calculations LVIDd: 5.2 cm LVOT diam: 2.5 cm LVIDs: 3.4 cm Ao root diam: 4.0 cm FS: 35.5 % asc Aorta Diam: 4.1 cm EPSS: 0.75 cm IVSd: 1.3 cm LVPWd: 1.3 cm LV dumont. diameter/BSA (cm/m^2): 2.4 LV sys. diameter/BSA (cm/m^2): 1.5 LA A2 area: 28.7 cm2 RA long axis: 6.7 cm LA A4 area: 32.8 cm2 RA area: 24.7 cm2 LA length (vol): 7.9 cm RA vol: 77.3 ml LA vol: 101.8 ml RA : 35.3 ml/m2 LA vol index: 46.4 ml/m2 IVC diam: 1.7 cm RVD1 (basal): 4.6 cm RVD2 (mid): 3.2 cm TAPSE: 2.8 cm Doppler Measurements & Calculations Ao V2 max: 156.9 cm/sec LVOT Max Roman: 101.2 cm/sec Ao V2 mean: 115.9 cm/sec LV V1 max P.1 mmHg Ao max P.8 mmHg LV V1 VTI: 21.1 cm Ao mean P.8 mmHg JOSE(I,D): 2.9 cm2 Ao V2 VTI: 34.4 cm JOSE(V,D): 3.1 cm2 sev ratio: 0.61 JOSE indexed to BSA (cm^2/m^2): 1.3 MV E max roman: 67.3 cm/sec TR max roman: 254.0 cm/sec MV A max roman: 80.1 cm/sec TR max P.8 mmHg MV E/A: 0.84 PA V2 max: 83.5 cm/sec Med Peak E' Roman: 7.1 cm/sec PA V2 mean: 62.5 cm/sec E/E' med: 9.5 PA mean P.7 mmHg Lat Peak E' Roman: 10.9 cm/sec PA pr(Accel): 32.8 mmHg E/E' lat: 6.2 E/e' average: 7.8 MV dec time: 0.21 sec SV(OT): 100.9 ml Reading Physician:02:50 PM
== END ==
PROVIDERS: PCP Family Medicine; Referring Provider Internal Medicine Cardiovascular Disease; Visit Provider Internal Medicine Cardiovascular Disease
DX: I08.3 Combined rheumatic disorders of mitral, aortic and tricuspid valves (principal); I42.9 Cardiomyopathy, unspecified; I77.89 Other specified disorders of arteries and arterioles; I77.810 Thoracic aortic ectasia
CPT/HCPCS: 93306

== ENCOUNTER → 2024-10-26 09:48 | Outpatient (CLI) | payer MEDICARE, SELFPAY ==
[2022-07-07 22:28] VITALS: BMI 32.7
--- NOTE | 2024-10-26 17:28 | DI.NM.S_ITS ---
DATE OF SERVICE: 10/26/2024 NUCLEAR CARDIOLOGY MYOCARDIAL PERFUSION STUDY PROCEDURE: Exercise treadmill stress and rest myocardial perfusion imaging with gating to assess ejection fraction and regional wall motion. ORDERING PROVIDER: Estefani Good M.D. INDICATIONS: The patient is a 79-year-old male with known significant coronary artery calcification and moderate cardiomyopathy with a LBBB. CARDIAC STRESS: The patient was able to exercise for 4 minutes 40 seconds on a standard Jose protocol, suggesting mildly impaired exercise capacity with an [place] of +9%, achieving 7.0 METS. He had a slightly accelerated heart rate response to exercise with a resting heart rate of 86 bpm increasing to 108 bpm after 1 minute of exercise and reaching a maximum of 161 bpm (113% of his predicted maximum). He had a normal blood pressure response and denied any chest discomfort although had limiting dyspnea. His resting ECG shows sinus rhythm with a probable significant first degree AV block with occasional PACs and a LBBB but no significant ST-segment abnormalities. With stress, there are no significant ST-segment shifts and continued occasional PACs, occasionally blocked with apparent brief second-degree AV block early in recovery that subsequently resolved. There are no other concerning arrhythmias although P-waves were challenging to fully delineate. At 3 minutes 55 seconds of exercise at a heart rate of 146 bpm, 25.5 millicuries of technetium-99m Myoview was injected and he was imaged 15 minutes later using a gated SPECT acquisition protocol. Earlier in the day while at rest, he had been injected with 12.7 millicuries of technetium-99m Myoview was imaged 15 minutes later, again using a gated SPECT acquisition protocol. FINDINGS: 1. Raw data. There is fairly good myocardial tracer uptake and left ventricular volumes are clearly increased. The lung/heart ratio is normal at 0.24 with a normal TID ratio of 0.68. 2. Quantitated gated SPECT: Post-stress ejection fraction is 64% without any focal wall motion abnormality and the resting ejection fraction is 62% with a similar contraction pattern but with significantly elevated left ventricular volumes with an end-diastolic volume of 170 mL. 3. Myocardial perfusion imaging: Post-stress supine images show a fairly uniform pattern of tracer activity without any obvious perfusion defects. The patient was unable to lie prone due to vertigo and therefore no prone images are available. The resting images show a similar perfusion pattern without any areas of improvement. IMPRESSION: 1. Normal myocardial perfusion study for ischemia. 2. No perfusion defects to suggest myocardial ischemia or previous myocardial infarction. 3. Normal left ventricular systolic function without focal wall motion abnormality but moderately increased left ventricular volumes. 4. Mildly reduced exercise capacity without angina although limiting dyspnea. His resting ECG showed sinus rhythm with a probable significant first-degree AV block with occasional PACs, rarely blocked, and possible second-degree AV block in early recovery, but no profound bradycardia or pauses or other significant arrhythmias. 5. No previous studies are available for comparison. Marcelo Santillan - ADRIENNE/abimael/MALLIKA doc#: [id number]/job#: [id number] dd: 10/26/2024 17:00:00 dt: 10/26/2024 17:12:00 DICTATING MD/COPIES TO: Benson Stubbs MD; Estefani Good M.D. COPIES MNE: ROGELIO;
== END ==
PROVIDERS: PCP Family Medicine; Referring Provider Internal Medicine Cardiovascular Disease; Visit Provider Internal Medicine Cardiovascular Disease
DX: I25.10 Atherosclerotic heart disease of native coronary artery without angina pectoris (principal); I42.9 Cardiomyopathy, unspecified; I44.7 Left bundle-branch block, unspecified
CPT/HCPCS: 78452; 93017; A9502

== ENCOUNTER → 2024-12-14 11:07 | Outpatient (CLI) | payer MEDICARE, SELFPAY ==
[2022-07-07 22:28] VITALS: BMI 32.7
[2024-12-14 12:30] LABS: Influenza A - CEPHEID Flu A NEGATIVE (NEGATIVE); Influenza B - CEPHEID Flu B NEGATIVE (NEGATIVE); Respiratory Syncytial Virus Negative (Negative)
[2024-12-14 12:31] LABS: COVID-19 CEPHEID 4-PLEX PCR Negative (Negative)
== END ==
PROVIDERS: PCP Family Medicine; Visit Provider Physician Assistant
DX: R05.1 Acute cough (principal); J02.9 Acute pharyngitis, unspecified
CPT/HCPCS: 0241U; 87070

== ENCOUNTER → 2025-01-10 08:37 | Outpatient (CLI) | payer MEDICARE, SELFPAY ==
[2022-07-07 22:28] VITALS: BMI 32.7
[2025-01-10 09:29] LABS: Add Manual Diff / Slide Review NO; Basophils Absolute Auto 100 /uL (0-100); Basophils Percent Auto 1.4 % (0-2); Eosinophils Absolute Auto 600 /uL (0-450); Eosinophils Percent Auto 7.1 % (2-4); Hematocrit 33.6 % (41-53); Hemoglobin 11.1 g/dL (13.5-17.5); Lymphocytes Absolute Auto 1600 /uL (1100-4500); Lymphocytes Percent Auto 18.7 % (25-40); Mean Corpuscular HGB Conc 33.1 % (30-36); Mean Corpuscular Hemoglobin 32.8 PG (26-34); Mean Corpuscular Volume 99.1 fL (80-100); Monocytes Absolute Auto 900 /uL (0-900); Monocytes Percent Auto 10.8 % (3-14); Neutrophils Absolute Auto 5100 /uL (1500-7000); Platelet Count 348 X10^3/uL (150-400); Red Blood Cell Count 3.39 X10^6/uL (4.5-5.9); Red Cell Distribution Width 15.7 % (11.6-14.8); White Blood Cell Count 8.3 X10^3/uL (4.5-11.0)
[2025-01-10 09:40] LABS: Hemoglobin A1C% w Est Avg Glu 4.9 % (4.0-6.0)
[2025-01-10 09:49] LABS: HEMOLYSIS 18 (0-50); Iron 54 ug/dL (49-181)
[2025-01-10 09:53] LABS: Alanine Aminotransferase 22 IU/L (<50); Albumin 3.7 g/dL (3.5-5.0); Albumin Globulin Ratio 1.3 (1.0-2.8); Alkaline Phosphatase 60 U/L (38-126); Aspartate Aminotransferase 28 IU/L (17-59); BUN Creatinine Ratio 26.3 (6-22); Bilirubin Total 0.3 mg/dL (0.2-1.3); Blood Urea Nitrogen 25 mg/dL (9-20); Calcium 9.1 mg/dL (8.4-10.2); Carbon Dioxide 27 mmol/L (22-32); Chloride 105 mmol/L (98-107); Estimated Glomerular Filt Rate > 60 mL/min (>60); Globulin 2.8 g/dL (1.7-4.1); Glucose 131 mg/dL (80-110); HEMOLYSIS < 15 (0-50); Potassium 4.9 mmol/L (3.4-5.1); Sodium 138 mmol/L (137-145); Total Protein 6.5 g/dL (6.3-8.2)
[2025-01-10 10:01] LABS: Percent Iron Saturation 21 % (20-50); Total Iron Binding Capacity 260 ug/dL (261-462); Transferrin 192 mg/dL (206-381)
[2025-01-10 10:12] LABS: Free T4, Direct Thyroxine 1.07 ng/dL (0.78-2.19)
[2025-01-10 10:26] LABS: Thyroid Stimulating Hormone 1.89 uIU/mL (0.47-4.68)
[2025-01-10 10:43] LABS: Vitamin B12 545 pg/mL (239-931)
== END ==
LOC: LAB 08:38
PROVIDERS: PCP Family Medicine; Referring Provider Internal Medicine Cardiovascular Disease; Visit Provider Internal Medicine Cardiovascular Disease
DX: E78.5 Hyperlipidemia, unspecified (principal); E11.9 Type 2 diabetes mellitus without complications; D64.9 Anemia, unspecified; I10 Essential (primary) hypertension; I48.92 Unspecified atrial flutter
CPT/HCPCS: 36415; 80053; 82607; 83036; 83540; 83550; 84439; 84443; 85025

== ENCOUNTER → 2025-01-27 15:14 | Outpatient (CLI) | payer MEDICARE, SELFPAY ==
[2022-07-07 22:28] VITALS: BMI 32.7
[2025-01-27 16:04] LABS: Influenza A - CEPHEID Flu A NEGATIVE (NEGATIVE); Influenza B - CEPHEID Flu B NEGATIVE (NEGATIVE); Respiratory Syncytial Virus Negative (Negative)
[2025-01-27 16:08] LABS: COVID-19 CEPHEID 4-PLEX PCR Negative (Negative)
== END ==
PROVIDERS: PCP Family Medicine; Visit Provider Physician Assistant
DX: R05.9 Cough, unspecified (principal)
CPT/HCPCS: 0241U

== ENCOUNTER → 2025-01-27 15:30 | Outpatient (CLI) | payer MEDICARE, SELFPAY ==
[2022-07-07 22:28] VITALS: BMI 32.7
--- NOTE | 2025-01-27 15:31 | DI.RAD.S_ITS ---
PROCEDURE: XR CHEST 2V INDICATIONS: cough TECHNIQUE: 2 views of the chest were acquired. COMPARISON: [facility], CR, XR CHEST 2V, 03/27/2024, 8:37. FINDINGS: Surgical changes and devices: None. Lungs and pleura: Mild pulmonary vascular congestion. No pleural effusions or pneumothorax. Mediastinum: Mediastinal contours are normal. Heart size is enlarged. Bones and chest wall: No suspicious bony abnormalities. Soft tissues appear unremarkable. IMPRESSION: Cardiomegaly and mild congestion. No definite focal infiltrate. No pleural effusion or pneumothorax. Dictated by: Justin Gtz M.D. on 01/27/2025 at 15:48 Approved by: Justin Gtz M.D. on 01/27/2025 at 15:49
== END ==
LOC: RAD 15:30
PROVIDERS: PCP Family Medicine; Referring Provider Physician Assistant; Visit Provider Physician Assistant
DX: I51.7 Cardiomegaly (principal); R05.9 Cough, unspecified; R09.89 Other specified symptoms and signs involving the circulatory and respiratory systems
CPT/HCPCS: 0241U; 71046

== ENCOUNTER 2025-03-29 16:02 | Emergency (ER) | payer MEDICARE, SELFPAY ==
[2022-07-07 22:28] VITALS: BMI 32.7
[2025-03-29] VITALS (17 sets, daily range): BP systolic 147–170; BP diastolic 66–77; PULSE 59–73; RESP 12–23; TEMP 36.4; O2SAT 97–99; BMI 31.5
--- NOTE | 2025-03-29 16:38 | EKG_ITS ---
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
--- NOTE | 2025-03-29 16:38 | DI.RAD.S_ITS ---
PROCEDURE: XR CHEST 1V INDICATIONS: Chest Pain TECHNIQUE: One view of the chest was acquired. COMPARISON: [facility], CR, XR CHEST 2V, 01/27/2025, 15:29. [facility], CR, XR CHEST 2V, 03/27/2024, 8:37. FINDINGS: Surgical changes and devices: None. Lungs and pleura: Lungs are clear. No pleural effusions or pneumothorax. Mediastinum: Mediastinal contours appear normal. Heart size is enlarged, stable. Bones and chest wall: No suspicious bony lesions. Overlying soft tissues appear unremarkable. IMPRESSION: No acute cardiopulmonary abnormality is seen. Dictated by: Waqas Benitez M.D. on 03/29/2025 at 16:56 Approved by: Waqas Benitez M.D. on 03/29/2025 at 16:56
[2025-03-29 17:13] LABS: Add Manual Diff / Slide Review NO; Basophils Absolute Auto 200 /uL (0-100); Basophils Percent Auto 1.7 % (0-2); Eosinophils Absolute Auto 600 /uL (0-450); Eosinophils Percent Auto 6.4 % (2-4); Hematocrit 37.1 % (41-53); Hemoglobin 11.7 g/dL (13.5-17.5); Lymphocytes Absolute Auto 1400 /uL (1100-4500); Lymphocytes Percent Auto 16.3 % (25-40); Mean Corpuscular HGB Conc 31.6 % (30-36); Mean Corpuscular Volume 88.7 fL (80-100); Monocytes Absolute Auto 600 /uL (0-900); Neutrophils Absolute Auto 6100 /uL (1500-7000); Neutrophils Percent Auto 68.6 % (50-75); Platelet Count 385 X10^3/uL (150-400); Red Blood Cell Count 4.18 X10^6/uL (4.5-5.9); Red Cell Distribution Width 18.6 % (11.6-14.8); White Blood Cell Count 8.9 X10^3/uL (4.5-11.0)
[2025-03-29 17:23] LABS: INR 0.9 (0.9-1.3); Prothrombin Time 10.4 SECONDS (9.4-12.5)
[2025-03-29 17:26] LABS: PTT Partial Thromboplastin Tim 29 SECONDS (25.1-36.5)
[2025-03-29 17:31] LABS: Alanine Aminotransferase 22 IU/L (<50); Albumin 4.1 g/dL (3.5-5.0); Albumin Globulin Ratio 1.1 (1.0-2.8); Alkaline Phosphatase 70 U/L (38-126); Aspartate Aminotransferase 35 IU/L (17-59); BUN Creatinine Ratio 22.1 (6-22); Bilirubin Total 0.4 mg/dL (0.2-1.3); Blood Urea Nitrogen 21 mg/dL (9-20); Calcium 9.1 mg/dL (8.4-10.2); Carbon Dioxide 25 mmol/L (22-32); Chloride 105 mmol/L (98-107); Creatine Kinase 159 U/L (55-170); Estimated Glomerular Filt Rate > 60 mL/min (>60); Globulin 3.9 g/dL (1.7-4.1); Glucose 147 mg/dL (70-99); HEMOLYSIS 20 (0-50); Lipase 73 U/L (23-300); Magnesium 1.9 mg/dL (1.6-2.3); Potassium 4.3 mmol/L (3.4-5.1); Sodium 140 mmol/L (137-145)
[2025-03-29 17:42] LABS: NT-proBNP (BNP-Adult 18+) 216 pg/mL (<450); Troponin I 0.064 ng/mL (0.01-0.034)
--- NOTE | 2025-03-29 18:59 | DI.CT.S_ITS ---
PROCEDURE: CT ANGIO HEAD AND NECK INDICATIONS: dizziness TECHNIQUE: After the administration of intravenous contrast, 1 mm thick sections acquired from the aortic arch through the [place] of [place]. 3-dimensional dngrvoc-ixqbndukr-nhjalspfeq (MIP) and/or volume rendering reformats were acquired of the central intracranial vasculature and neck separately. For radiation dose reduction, the following was used: automated exposure control, adjustment of mA and/or kV according to patient size. COMPARISON: None. FINDINGS: Image quality: Diagnostic. Cerebral CT Angiogram: Internal carotid arteries: No acute findings. Intracranial ICA are patent with no significant stenosis. No occlusion. No aneurysm. Anterior cerebral arteries: Unremarkable. No significant stenosis. No occlusion. No aneurysm. Middle cerebral arteries: Unremarkable. No significant stenosis. No occlusion. No aneurysm. Posterior cerebral arteries: origin of the right PLANT TECH. Unremarkable. No significant stenosis. No occlusion. No aneurysm. Basilar artery: Unremarkable. No significant stenosis. No occlusion. No aneurysm. Vertebral arteries: Unremarkable as visualized. Dural venous sinuses: Unremarkable given phase of enhancement. Other: Arterial phase appearance of the brain parenchyma is unremarkable. Neck CT Angiogram: Internal carotid arteries: Coarse calcifications proximally with mild stenosis on the left, less than 50% and mild to moderate stenosis on the right, approximately 50%.. No dissection or occlusion. Common carotid arteries: Unremarkable. No significant stenosis. No dissection or occlusion. External carotid arteries: Unremarkable. No occlusion. Vertebral arteries: Unremarkable. No significant stenosis. No dissection or occlusion. Aortic Arch and Mediastinum: Partially visualized aortic arch unremarkable without evidence of aneurysm. Origins of the great vessels unremarkable. Other: Arterial phase soft tissues of the neck and chest are unremarkable. IMPRESSION: No significant intracranial arterial abnormality is seen. Mild stenosis of the proximal left ICA, less than 50% and mild to moderate stenosis of the proximal right ICA, approximately 50%. Otherwise, no significant abnormality is seen within the arteries of the neck. Any quantitative measurements of stenosis were performed using NASCET criteria. Dictated by: Waqas Benitez M.D. on 03/29/2025 at 19:29 Approved by: Waqas Benitez M.D. on 03/29/2025 at 19:34
--- NOTE | 2025-03-29 18:59 | DI.CT.S_ITS ---
PROCEDURE: CT HEAD/BRAIN WO CON INDICATIONS: dizziness TECHNIQUE: Noncontrast 4.5 mm thick angled axial sections acquired from the foramen magnum to the vertex, with coronal and sagittal reformats. For radiation dose reduction, the following was used: automated exposure control, adjustment of mA and/or kV according to patient size. COMPARISON: None. FINDINGS: Image quality: Diagnostic. CSF spaces: Basal cisterns are patent. No extra-axial fluid collections. The ventricles are symmetric in size and shape. Brain: No intracranial bleeds or mass effect. There is cerebral volume loss, with resultant ventricular and sulcal prominence. There are periventricular and deep white matter chronic small vessel ischemic changes. There is intracranial internal carotid artery atherosclerosis. Skull and face: Calvarium and visualized facial bones appear intact, without suspicious lesions. Sinuses: Visualized sinuses and mastoids are clear. IMPRESSION: No acute intracranial pathology. Dictated by: Waqas Benitez M.D. on 03/29/2025 at 19:27 Approved by: Waqas Benitez M.D. on 03/29/2025 at 19:28
--- NOTE | 2025-03-29 19:56 | PC.NURSE ---
Pt states all symptoms have resolved at this time.
--- NOTE | 2025-03-29 20:27 | ED.GENADULT ---
HPI - General Adult General Chief complaint: Dizziness Stated complaint: dizzy vertigo Time Seen by Provider: 03/29/25 18:30 Source: patient Mode of arrival: Wheelchair History of Present Illness HPI narrative: 79-year-old gentleman with a history of hypertension, type 2 diabetes, hyperlipidemia, presents complaining of acute onset of dizziness this morning at 5:30 a.m.. Was able to clear enough that he was able to go to his water aerobics class however after that once at home and resting he again became dizzy, diaphoretic nauseated and describes wing sensation to the left side of his head/scalp not including his face. At 1 point any lateral movement of the head seemed to make symptoms worse. By the time he arrives in the emergency department that is improving significantly. He has had benign positional vertigo in the past did not attempt any Komal maneuvers at home but was aware of them. No recent fevers, chest pain, palpitations, abdominal pain Related Data Home Medications ?Medication ?Instructions ?Recorded ?Confirmed aspirin 81 mg chewable tablet 81 mg PO DAILY 07/08/22 01/27/25 (Aspirin Childrens) ketoconazole 2 % shampoo topical 03/03/24 01/27/25 ketoconazole 2 % topical cream 1 applic topical 03/03/24 01/27/25 metoprolol succinate 25 mg 25 mg PO DAILY 01/19/25 01/27/25 tablet,extended release 24 hr Previous Rx's ?Medication ?Instructions ?Recorded cetirizine 10 mg tablet See Rx Instructions .Route 04/09/23 .COMPLEX #90 tabs atorvastatin 10 mg tablet 10 mg PO DAILY #90 tabs 03/03/24 empagliflozin 25 mg tablet 25 mg PO DAILY #90 tabs 03/03/24 (Jardiance) ipratropium bromide 21 mcg (0.03 2 spray intranasal BID PRN 03/27/24 %) nasal spray Postnasal drip #30 mL albuterol sulfate 90 mcg/actuation 2 puff inhalation Q6H PRN 03/28/24 aerosol inhaler shortness of breath or wheezing #6.7 grams lisinopril 20 mg tablet See Rx Instructions .Route 06/29/24 .COMPLEX #90 tabs fluticasone propionate 50 1 spray intranasal DAILY #16 grams 12/14/24 mcg/actuation nasal spray,suspension (Flonase Allergy Relief) omeprazole 20 mg capsule,delayed 20 mg PO DAILY #90 caps 02/21/25 release metformin 500 mg tablet,extended 500 mg PO BID #180 tabs 02/26/25 release 24 hr Allergies Allergy/AdvReac Type Severity Reaction Status Date / Time No Known Drug Allergies Allergy Verified 01/27/25 15:09 Review of Systems Review of Systems Narrative: Pertinent positive and negative findings as per HPI Patient History Medical History Seasonal allergies Phimosis of penis Viral URI Anemia Pulmonary edema COVID-19 Medicare annual wellness visit, subsequent Encounter for well adult exam with abnormal findings Lower extremity pain Left hip pain Lower back pain Fractures (~1957) Ankle pain (~1958) Mumps (~1953) Measles (~1952) Chicken pox (~1951) Vertigo Atrial flutter (~2020) Skin cancer (~2019) Acute cholecystitis Obstructive sleep apnea (adult) (pediatric) (2019) Cataract associated with other syndromes Tear, knee, medial meniscus Carpal tunnel syndrome on both sides DM (diabetes mellitus) (~2009) HTN (hypertension) Hypercholesteremia Surgical History Anesthesia History of carpal tunnel release (~2022) History of cholecystectomy (~2021) History of cataract removal with insertion of prosthetic lens (~2021) History of cardiac radiofrequency ablation (~2020) History of knee surgery (~2017) History of eye surgery (~1952) Family History Father History of heart attack Mother Cancer Sister Cancer Grandfather Cancer Social History household members: spouse Smoking Status: Never smoker alcohol intake: current Smoking Status: Never smoker alcohol intake frequency: a few times a month Exam Initial Vital Signs Initial Vital Signs: Vital Signs Temperature 97.6 F 03/29/25 16:24 Pulse Rate 60 03/29/25 16:24 Respiratory Rate 16 03/29/25 16:24 Blood Pressure 170/69 H 03/29/25 16:24 Pulse Oximetry 99 03/29/25 16:24 Oxygen Delivery Method Room Air 03/29/25 16:24 General: Healthy appearing, in no acute distress. Able to give a complete and coherent history. Well-nourished well-developed HEENT: Moist mucous membranes, normal sclera with reactive pupils, Respiratory: Lungs are clear to auscultation, no wheezing no rales no rhonchi. Full and symmetrical air movement Cardiac: Regular rate and rhythm no murmurs no bruits Abdomen: Soft, nontender, no rebound or guarding, no flank pain Skin: Warm and dry, no rashes Neurologic: Grossly neurologically intact with no obvious asymmetries or abnormalities, no nystagmus with lateral rotation of his head and minimal vertigo at this time Extremities: No trauma, well perfused Psych: Cooperative, appropriate insight and affect Course Orders Ordered: ED Orders 03/29/25 20:52 Trop I [Troponin I] Stat Vital Signs Vital signs: Vital Signs - 8 hr 03/29/25 20:30 03/29/25 20:30 03/29/25 21:00 Pulse Rate 64 61 Respiratory Rate 15 18 Blood Pressure 154/70 H Pulse Oximetry 97 98 Oxygen Delivery Method Room Air Room Air 03/29/25 21:01 03/29/25 21:01 03/29/25 21:30 Pulse Rate 62 63 Respiratory Rate 16 14 Blood Pressure 166/68 H Pulse Oximetry 98 98 Oxygen Delivery Method Room Air Room Air 03/29/25 21:30 03/29/25 22:00 03/29/25 22:00 Pulse Rate 62 Respiratory Rate 14 Blood Pressure 157/71 H 166/73 H Pulse Oximetry 98 Oxygen Delivery Method Room Air 03/29/25 22:30 03/29/25 22:30 03/29/25 23:00 Pulse Rate 62 Respiratory Rate 12 Blood Pressure 159/72 H 166/74 H Pulse Oximetry 98 Oxygen Delivery Method Room Air 03/29/25 23:00 03/29/25 23:30 03/29/25 23:30 Pulse Rate 62 68 Respiratory Rate 14 14 Blood Pressure 170/74 H Pulse Oximetry 98 98 Oxygen Delivery Method Room Air Room Air Medical Decision Making Lab Data 03/29/25 17:00 03/29/25 17:00 Labs: Lab Results 03/29/25 03/29/25 Range/Units 17:00 20:52 WBC 8.9 (4.5-11.0) X10^3/uL RBC 4.18 L (4.5-5.9) X10^6/uL Hgb 11.7 L (13.5-17.5) g/dL Hct 37.1 L (41-53) % MCV 88.7 (80-100) fL MCH 28.0 (26-34) PG MCHC 31.6 (30-36) % RDW 18.6 H (11.6-14.8) % Plt Count 385 (150-400) X10^3/uL Neut % (Auto) 68.6 (50-75) % Lymph % (Auto) 16.3 L (25-40) % [place] % (Auto) 7.0 (3-14) % Eos % (Auto) 6.4 H (2-4) % Baso % (Auto) 1.7 (0-2) % Neut # (Auto) 6100 (7593-6010) /uL Lymph # (Auto) 1400 (6358-0001) /uL [place] # (Auto) 600 (0-900) /uL Eos # (Auto) 600 H (0-450) /uL Baso # (Auto) 200 H (0-100) /uL PT 10.4 (9.4-12.5) SECONDS INR 0.9 (0.9-1.3) APTT 29 (25.1-36.5) SECONDS Sodium 140 (137-145) mmol/L Potassium 4.3 (3.4-5.1) mmol/L Chloride 105 (98-107) mmol/L Carbon Dioxide 25 (22-32) mmol/L BUN 21 H (9-20) mg/dL Creatinine 0.95 (0.66-1.25) mg/dL Estimated GFR > 60 (>60) mL/min BUN/Creatinine Ratio 22.1 H (6-22) Glucose 147 H (70-99) mg/dL Calcium 9.1 (8.4-10.2) mg/dL Magnesium 1.9 (1.6-2.3) mg/dL Total Bilirubin 0.4 (0.2-1.3) mg/dL AST 35 (17-59) IU/L ALT 22 (<50) IU/L Alkaline Phosphatase 70 (38-126) U/L Total Creatine Kinase 159 (55-170) U/L Troponin I 0.064 H 0.067 H (0.01-0.034) ng/mL NT-Pro-B Natriuret Pep 216 (<450) pg/mL Total Protein 8.0 (6.3-8.2) g/dL Albumin 4.1 (3.5-5.0) g/dL Globulin 3.9 (1.7-4.1) g/dL Albumin/Globulin Ratio 1.1 (1.0-2.8) Lipase 73 (23-300) U/L MDM Narrative Medical decision making narrative: CC: Acute dizziness/vertigo Complicating co-morbidities: Hypertension, hyperlipidemia, prior benign positional vertigo Data collected from: patient , Medical records reviewed: Primary care note from June 2024 is reviewed Differential considered: Benign positional vertigo, dehydration, cardiac arrhythmia, stroke given the tingly feeling to his scalp Exam documented above, pertinent findings include: Exam is benign with no provoked nystagmus to suggest benign positional vertigo this time Lab Test results independently reviewed as above. Pertinent findings: CBC shows chronic anemia Chemistries are reassuring with the appropriate renal function, no electrolyte abnormalities, no liver abnormalities Initial troponin is positive at 0.064, repeat is similar at 0.067 Lipase is unremarkable Independently reviewed EKG: Sinus rhythm, first-degree block, left bundle branch block, no acute ischemia Imaging studies independently reviewed: CT scan of the head shows no acute intracranial pathology CT angiogram of the head and neck with concerns for stroke Mild stenosis of the proximal left ICA, less than 50% and mild to moderate stenosis of the proximal right ICA, approximately 50%. Otherwise, no significant abnormality is seen within the arteries of the neck. Discussion: 79-year-old gentleman presents after waking up dizzy this morning, did seem initially to have some positional component. On initial exam in the emergency department you did not have any nystagmus in the positional component was resolving as were the further symptoms. He described some had itchiness on the left side but no chest pain or shortness for breath. Stroke workup is unremarkable. Initial troponin was minimally elevated repeat was the same with no change to his baseline EKG and no other signs or symptoms consistent with the acute coronary syndrome at this time. Discussed all findings with the patient and his . Currently he is not dizzy and feels ready for discharge. We will ask him to follow up with his primary care physician and has recurrent symptoms we will need to return to the emergency department. There was no indication for hospitalization or further imaging at this time Discharge Plan Departure Patient Disposition: Home Clinical Impression: Vertigo Instructions: DI for Vertigo Activity Restrictions/Additional Instructions: Thank you for coming in today With the acute onset of symptoms particularly with the odd feeling over your scalp, my initial concern was for stroke. I am not seeing any evidence of stroke with a CT scan or the CT angiogram which looks at the blood vessels around her head and neck. Your blood work was reassuring. One of your tests, the troponin, was minimally elevated which made me repeat it. It did not increase which I found quite reassuring. This test can sometimes indicate that there is heart issue that has caused her symptoms. I do not think that is the case for you today. I am not seeing signs of a heart attack. There was no sign of infection. This may be related to benign positional vertigo such as you had before. At this point I am glad that your symptoms have resolved If you find that you are getting worse or develop any new symptoms, please feel free to return to the emergency department for further evaluation. Prescriptions: No Action ipratropium bromide 21 mcg (0.03 %) spray,non-aerosol 2 spray intranasal BID PRN (Reason: Postnasal drip) Qty: 30 0RF Rx Instructions: administer into each nostril fluticasone propionate [Flonase Allergy Relief] 50 mcg/actuation spray,suspension 1 spray intranasal DAILY Qty: 16 0RF Rx Instructions: administer into each nostril cetirizine 10 mg tablet See Rx Instructions .ROUTE .COMPLEX Qty: 90 1RF Dose Instruction: TAKE ONE TABLET BY MOUTH ONCE DAILY NEEDED Rx Instructions: TAKE ONE TABLET BY MOUTH ONCE DAILY NEEDED lisinopril 20 mg tablet See Rx Instructions .ROUTE .COMPLEX Qty: 90 3RF Dose Instruction: TAKE ONE TABLET BY MOUTH ONE TIME DAILY Rx Instructions: TAKE ONE TABLET BY MOUTH ONE TIME DAILY metformin 500 mg tablet extended release 24 hr 500 mg PO BID Qty: 180 3RF ketoconazole 2 % shampoo topical ketoconazole 2 % cream 1 applic topical Jardiance 25 mg tablet 25 mg PO DAILY Qty: 90 3RF atorvastatin 10 mg tablet 10 mg PO DAILY Qty: 90 3RF Patient Comments: TAKE ONE TABLET BY MOUTH ONE TIME DAILY metoprolol succinate 25 mg tablet extended release 24 hr 25 mg PO DAILY omeprazole 20 mg capsule,delayed release(DR/EC) 20 mg PO DAILY Qty: 90 1RF albuterol sulfate 90 mcg/actuation HFA aerosol inhaler 2 puff inhalation Q6H PRN (Reason: shortness of breath or wheezing) Qty: 6.7 0RF aspirin [Aspirin Childrens] 81 mg Tablet,Chewable 81 mg PO DAILY Referrals: Ryan Arevalo, [Primary Care Provider, Family Practice] Stand Alone Forms: Patient Portal/API
[2025-03-29 21:24] LABS: Troponin I 0.067 ng/mL (0.01-0.034)
== END 2025-03-30 00:04 | disposition home or self-care (01) ==
PROVIDERS: Emergency Medicine; Emergency Provider Emergency Medicine; PCP Family Medicine
DX: R42 Dizziness and giddiness (principal); I44.7 Left bundle-branch block, unspecified; I44.0 Atrioventricular block, first degree; R11.0 Nausea; Z86.69 Personal history of other diseases of the nervous system and sense organs
CPT/HCPCS: 36415; 70450; 70496; 70498; 71045; 80053; 82550; 83690; 83735; 83880; 84484; 85025; 85610; 85730; 93005; 99283; 99284; Q9967

== ENCOUNTER → 2025-04-13 08:07 | Outpatient (CLI) | payer MEDICARE, SELFPAY ==
[2022-07-07 22:28] VITALS: BMI 32.7
--- NOTE | 2025-04-13 08:11 | DI.RAD.S_ITS ---
PROCEDURE: FL UPPER GI SERIES INDICATIONS: GERD with esophagitis COMPARISON: None. FINDINGS: Esophagus: Esophageal mucosa is normal on air-contrast views. On single- contrast views, there is weakened esophageal peristalsis. There is external mass effect upon the distal esophagus. No hiatal hernia or elicited gastroesophageal reflux. Stomach: The stomach is normally distensible, with normal rugal fold thickness. No mucosal masses or ulcers. Pylorus and duodenal bulb appear normal in morphology. Duodenal folds are normal in thickness as well. IMPRESSION: External mass effect upon the distal esophagus, which may indicate leiomyoma or gist. Recommend endoscopy. Moderate esophageal dysmotility. Dictated by: Ruslan Maier M.D. on 04/17/2025 at 10:18 Approved by: Ruslan Maier M.D. on 04/17/2025 at 10:19
== END ==
PROVIDERS: PCP Family Medicine; Referring Provider Family Medicine; Visit Provider Radiology Diagnostic Radiology
DX: K21.00 Gastro-esophageal reflux disease with esophagitis, without bleeding (principal); K22.4 Dyskinesia of esophagus
CPT/HCPCS: 74240

== ENCOUNTER → 2025-04-19 09:39 | Outpatient (CLI) | payer MEDICARE, SELFPAY ==
[2022-07-07 22:28] VITALS: BMI 32.7
== END ==
LOC: CAR 09:39
PROVIDERS: PCP Family Medicine; Referring Provider Family Medicine; Visit Provider Family Medicine
DX: I48.91 Unspecified atrial fibrillation (principal); I48.92 Unspecified atrial flutter; I49.9 Cardiac arrhythmia, unspecified
CPT/HCPCS: 93246

== ENCOUNTER → 2025-05-02 08:59 | Outpatient (CLI) | payer MEDICARE, SELFPAY ==
[2022-07-07 22:28] VITALS: BMI 32.7
[2025-05-02 10:05] LABS: Blood Urea Nitrogen 30 mg/dL (9-20); Calcium 9.3 mg/dL (8.4-10.2); Carbon Dioxide 29 mmol/L (22-32); Chloride 102 mmol/L (98-107); Estimated Glomerular Filt Rate > 60 mL/min (>60); Glucose 129 mg/dL (70-99); HEMOLYSIS < 15 (0-50); Magnesium 2.2 mg/dL (1.6-2.3); Potassium 4.8 mmol/L (3.4-5.1); Sodium 137 mmol/L (137-145)
== END ==
PROVIDERS: PCP Family Medicine; Referring Provider Internal Medicine Cardiovascular Disease; Visit Provider Internal Medicine Cardiovascular Disease
DX: I10 Essential (primary) hypertension (principal)
CPT/HCPCS: 36415; 80048; 83735

== ENCOUNTER → 2025-07-10 11:46 | Outpatient (CLI) | payer MEDICARE, SELFPAY ==
[2022-07-07 22:28] VITALS: BMI 32.7
[2025-07-10 13:24] LABS: Hemoglobin A1C% w Est Avg Glu 6.9 % (4.0-6.0)
== END ==
PROVIDERS: PCP Family Medicine; Referring Provider Family Medicine; Visit Provider Family Medicine
DX: E11.36 Type 2 diabetes mellitus with diabetic cataract (principal)
CPT/HCPCS: 36415; 83036

== ENCOUNTER 2025-09-01 15:17 | Emergency (ER) | payer MEDICARE, SELFPAY ==
[2022-07-07 22:28] VITALS: BMI 32.7
[2025-09-01] VITALS (12 sets, daily range): BP systolic 133–172; BP diastolic 64–91; PULSE 71–84; RESP 12–24; TEMP 37.1; O2SAT 94–97; BMI 32.5
--- NOTE | 2025-09-01 15:39 | DI.RAD.S_ITS ---
PROCEDURE: XR CHEST 1V INDICATIONS: Shortness of breath TECHNIQUE: One view of the chest was acquired. COMPARISON: [facility], CR, XR CHEST 1V, 03/29/2025, 16:37. FINDINGS: Surgical changes and devices: Right chest port with tip in the distal superior vena cava Lungs and pleura: Moderate interstitial prominence. No focal airspace consolidation No discrete pleural effusion. No pneumothorax. Mediastinum: Cardiomegaly. Bones and chest wall: No suspicious bony lesions. Overlying soft tissues appear unremarkable. IMPRESSION: Cardiomegaly with interstitial prominence may reflect pulmonary edema. Dictated by: Candido Lew M.D. on 09/01/2025 at 16:12 Approved by: Candido Lew M.D. on 09/01/2025 at 16:15
--- NOTE | 2025-09-01 15:39 | EKG_ITS ---
[facility] [address] [place] [address] Test Date: 2025-09-01 Pat Name: Marcelo Santillan Department: [facility] Room: Gender: Male Licensed Optician: LEATHA : 1945 Requested By: Order Number: [id number] Reading MD: Marcelo Raman MD Measurements Intervals [place] Rate: 75 P: -48 OK: 316 QRS: -56 QRSD: 128 T: 57 QT: 404 QTc: 451 Interpretive Statements Unusual P axis, possible ectopic atrial rhythm Left axis deviation Left ventricular hypertrophy with QRS widening ( R in aVL , Leandro product ) Electronically Signed On 09-02-2025 8:31:26 PST by Marcelo Raman MD
[2025-09-01 16:00] LABS: Hematocrit 38.9 % (41-53); Hemoglobin 12.6 g/dL (13.5-17.5); Mean Corpuscular HGB Conc 32.4 % (30-36); Mean Corpuscular Hemoglobin 26.8 PG (26-34); Mean Corpuscular Volume 82.6 fL (80-100); Platelet Count 177 X10^3/uL (150-400)
[2025-09-01 16:03] LABS: Add Manual Diff / Slide Review YES; INR 1.1 (0.9-1.3); Prothrombin Time 12.4 SECONDS (9.4-12.5)
[2025-09-01 16:12] LABS: Lactate (Lactic Acid) 1.3 mmol/L (0.7-2.1)
[2025-09-01 16:13] LABS: Alanine Aminotransferase 37 IU/L (<50); Albumin 4.1 g/dL (3.5-5.0); Albumin Globulin Ratio 1.1 (1.0-2.8); Alkaline Phosphatase 76 U/L (38-126); Blood Urea Nitrogen 22 mg/dL (9-20); Calcium 8.8 mg/dL (8.4-10.2); Carbon Dioxide 24 mmol/L (22-32); Chloride 105 mmol/L (98-107); Estimated Glomerular Filt Rate > 60 mL/min (>60); Globulin 3.9 g/dL (1.7-4.1); Glucose 131 mg/dL (70-99); HEMOLYSIS < 15 (0-50); Potassium 4.0 mmol/L (3.4-5.1); Sodium 140 mmol/L (137-145); Total Protein 8.0 g/dL (6.3-8.2)
[2025-09-01 16:24] LABS: NT-proBNP (BNP-Adult 18+) 385 pg/mL (<450); Troponin I 0.081 ng/mL (0.01-0.034)
[2025-09-01 16:43] LABS: Atypical Lymphocytes Percent 3.0 %; Eosinophils Percent Manual 1.0 % (2-4); Lymphocytes Percent Manual 29.0 % (25-45); Monocytes Percent Manual 9.0 % (2-11); Neutrophils Absolute Manual 3016 /uL (3000-5900); Segmented Neutrophils Percent 58.0 % (38-70); Total Cells Counted 100
[2025-09-01 16:45] LABS: Anisocytosis 2+
[2025-09-01 18:21] LABS: Troponin I 0.089 ng/mL (0.01-0.034)
--- NOTE | 2025-09-01 18:50 | ED.SOB ---
HPI - SOB/Dyspnea General Chief Complaint: Shortness of Breath/Dyspnea Stated Complaint: SOB, poss walking pneumonia Time Seen by Provider: 09/01/25 18:50 Source: patient and family Mode of arrival: Ambulatory History of Present Illness HPI Narrative: 80-year-old male patient with a history of hypertension, diabetes, atrial flutter, esophageal/ stomach cancer with liver involvement, KATHRYN, dyslipidemia who presents with cough and shortness of breath worsening over the last 2 or 3 days with no fever or chills. He has also had congestion and a slight scratchy throat. Currently on immunotherapy for his cancer treatment. Related Data Home Medications ?Medication ?Instructions ?Recorded ?Confirmed aspirin 81 mg chewable tablet 81 mg PO DAILY 07/08/22 05/04/25 (Aspirin Childrens) ketoconazole 2 % shampoo topical 03/03/24 05/04/25 ketoconazole 2 % topical cream 1 applic topical 03/03/24 05/04/25 metoprolol succinate 25 mg 25 mg PO DAILY 01/19/25 05/04/25 tablet,extended release 24 hr apixaban 5 mg tablet (Eliquis) 5 mg PO BID 05/04/25 05/04/25 cetirizine 10 mg tablet 10 mg PO DAILY PRN 05/04/25 05/04/25 hydrochlorothiazide 12.5 mg tablet 12.5 mg PO DAILY 05/04/25 05/04/25 lisinopril 10 mg tablet 10 mg PO DAILY 05/04/25 05/04/25 Previous Rx's ?Medication ?Instructions ?Recorded atorvastatin 10 mg tablet 10 mg PO DAILY #90 tabs 03/03/24 empagliflozin 25 mg tablet 25 mg PO DAILY #90 tabs 03/03/24 (Jardiance) ipratropium bromide 21 mcg (0.03 2 spray intranasal BID PRN 03/27/24 %) nasal spray Postnasal drip #30 mL omeprazole 20 mg capsule,delayed 20 mg PO DAILY #90 caps 02/21/25 release metformin 500 mg tablet,extended 500 mg PO BID #180 tabs 02/26/25 release 24 hr azithromycin 250 mg tablet 250 mg PO DAILY 4 days #4 tabs 09/01/25 Allergies Allergy/AdvReac Type Severity Reaction Status Date / Time No Known Drug Allergies Allergy Verified 09/01/25 15:34 Review of Systems Review of Systems ROS Unobtainable: All systems reviewed & are unremarkable except as noted in HPI and below ENT Ears, Nose, Mouth, and Throat: Reports as per HPI Respiratory Respiratory: Reports as per HPI Patient History Medical History GERD (gastroesophageal reflux disease) Near syncope Seasonal allergies Phimosis of penis Viral URI Anemia Pulmonary edema COVID-19 Medicare annual wellness visit, subsequent Encounter for well adult exam with abnormal findings Lower extremity pain Left hip pain Lower back pain Fractures (~1957) Ankle pain (~1958) Mumps (~1953) Measles (~1952) Chicken pox (~1951) Vertigo Atrial flutter (~2020) Skin cancer (~2019) Acute cholecystitis Obstructive sleep apnea (adult) (pediatric) (2019) Cataract associated with other syndromes Tear, knee, medial meniscus Carpal tunnel syndrome on both sides DM (diabetes mellitus) (~2009) HTN (hypertension) Hypercholesteremia Surgical History Anesthesia History of carpal tunnel release (~2022) History of cholecystectomy (~2021) History of cataract removal with insertion of prosthetic lens (~2021) History of cardiac radiofrequency ablation (~2020) History of knee surgery (~2017) History of eye surgery (~1952) Family History Father History of heart attack Mother Cancer Sister Cancer Grandfather Cancer Social History household members: spouse Smoking Status: Former smoker alcohol intake: current Smoking Status: Former smoker alcohol intake frequency: a few times a month Exam Narrative Exam Narrative: General: Alert and conversant. No distress. Appears well nourished and well hydrated Craniofacial: No evidence of trauma. Nontender and no swelling. Eyes: PERRLA EOMI conjunctiva clear HEENT: Tragus, pinnae nontender. Tympanic membranes normal appearance. Oropharynx clear with no swelling, exudate or asymmetry of the pharynx. Nares clear. No sinus tenderness Neck: No tenderness or adenopathy. No meningismus. No JVD Lungs: Patient has rales in the lower right half with no wheezing. Good breath sounds otherwise. No respiratory distress Cardiac: Regular rate and rhythm with no appreciable murmur or gallop Abdomen: Soft, nontender with no distention or masses. Normal bowel sounds. No rebound or guarding Musculoskeletal: Exam of the extremities, axial spine and ribcage reveals no deformity, bony tenderness or swelling. Range of motion intact Neuro: Alert and oriented. Cranial nerves, motor, sensory and cerebellar all grossly intact. No focal deficit Skin: Warm and normal color. No rashes Psychological: Normal affect and interaction. No evidence of delusion or psychosis. Normal mood. Initial Vital Signs Initial Vital Signs: Vital Signs Temperature 98.8 F 09/01/25 15:34 Pulse Rate 81 09/01/25 15:34 Respiratory Rate 18 09/01/25 15:34 Blood Pressure 156/69 H 09/01/25 15:34 Pulse Oximetry 95 09/01/25 15:34 Oxygen Delivery Method Room Air 09/01/25 15:34 Course Orders Ordered: ED Orders 09/01/25 15:39 XR chest 1V Stat EKG-12 Lead Stat RT Consult Eval and Treat STAT 09/01/25 15:49 Complete Blood Count AUTO DIFF Stat Comprehensive Metabolic Panel Stat Lactate (Lactic Acid) Stat NT-proBNP (BNP-Adult 18+) Stat Prothrombin Time INR Stat Troponin I Stat 09/01/25 17:50 Troponin I Stat 09/01/25 19:00 CXR [XR chest 2V] Stat 09/01/25 19:34 Procalcitonin Stat Trop I [Troponin I] Stat Discontinued Medications Azithromycin (Azithromycin 250 Mg Tablet) 500 mg PO NOW ONE Stop: 09/01/25 21:31 Last Admin: 09/01/25 21:38 Dose: 500 mg Documented By: MINNA Vital Signs Vital signs: Vital Signs - 8 hr 09/01/25 17:20 09/01/25 17:20 09/01/25 17:30 Pulse Rate 84 Respiratory Rate Blood Pressure 172/91 H 156/75 H Pulse Oximetry 94 09/01/25 17:30 09/01/25 18:00 09/01/25 18:00 Pulse Rate 76 78 Respiratory Rate 17 18 Blood Pressure 169/79 H Pulse Oximetry 97 96 09/01/25 18:30 09/01/25 18:30 09/01/25 19:00 Pulse Rate 71 Respiratory Rate 12 Blood Pressure 159/71 H 159/70 H Pulse Oximetry 94 09/01/25 19:00 09/01/25 19:30 09/01/25 20:00 Pulse Rate 76 74 73 Respiratory Rate 24 13 13 Blood Pressure Pulse Oximetry 95 96 96 09/01/25 20:30 09/01/25 20:46 09/01/25 20:46 Pulse Rate 72 80 Respiratory Rate 22 12 Blood Pressure 167/75 H Pulse Oximetry 95 95 09/01/25 21:00 09/01/25 21:00 09/01/25 21:30 Pulse Rate 73 71 Respiratory Rate 14 14 Blood Pressure 134/64 Pulse Oximetry 95 96 09/01/25 21:30 Pulse Rate Respiratory Rate Blood Pressure 133/64 Pulse Oximetry MDM - SOB/Dyspnea Medical Records Attestation: I reviewed the patient's medical records. Lab Data Attestation: I reviewed the patient's lab results. 09/01/25 15:49 09/01/25 15:49 Labs: Lab Results 09/01/25 09/01/25 09/01/25 Range/Units 15:49 17:50 19:34 WBC 5.2 (4.5-11.0) X10^3/uL RBC 4.71 (4.5-5.9) X10^6/uL Hgb 12.6 L (13.5-17.5) g/dL Hct 38.9 L (41-53) % MCV 82.6 (80-100) fL MCH 26.8 (26-34) PG MCHC 32.4 (30-36) % RDW 23.5 H (11.6-14.8) % Plt Count 177 (150-400) X10^3/uL Neut % (Auto) Not Reportable Lymph % (Auto) Not Reportable [place] % (Auto) Not Reportable Eos % (Auto) Not Reportable Baso % (Auto) Not Reportable Lymph # (Auto) Not Reportable [place] # (Auto) Not Reportable Baso # (Auto) Not Reportable Total Counted 100 Seg Neutrophils % 58.0 (38-70) % Lymphocytes % (Manual) 29.0 (25-45) % Atypical Lymphs % 3.0 H ( - 0) % Monocytes % (Manual) 9.0 (2-11) % Eosinophils % (Manual) 1.0 L (2-4) % Neutrophils # (Manual) 3016 (2069-4018) /uL RBC Morphology See below Anisocytosis 2+ H PT 12.4 (9.4-12.5) SECONDS INR 1.1 (0.9-1.3) Sodium 140 (137-145) mmol/L Potassium 4.0 (3.4-5.1) mmol/L Chloride 105 (98-107) mmol/L Carbon Dioxide 24 (22-32) mmol/L BUN 22 H (9-20) mg/dL Creatinine 0.92 (0.66-1.25) mg/dL Estimated GFR > 60 (>60) mL/min BUN/Creatinine Ratio 23.9 H (6-22) Glucose 131 H (70-99) mg/dL Lactate 1.3 (0.7-2.1) mmol/L Calcium 8.8 (8.4-10.2) mg/dL Total Bilirubin 0.4 (0.2-1.3) mg/dL AST 48 (17-59) IU/L ALT 37 (<50) IU/L Alkaline Phosphatase 76 (38-126) U/L Troponin I 0.081 H 0.089 H 0.089 H (0.01-0.034) ng/mL NT-Pro-B Natriuret Pep 385 (<450) pg/mL Total Protein 8.0 (6.3-8.2) g/dL Albumin 4.1 (3.5-5.0) g/dL Globulin 3.9 (1.7-4.1) g/dL Albumin/Globulin Ratio 1.1 (1.0-2.8) Procalcitonin 0.144 (<0.5) ng/mL Imaging Data Chest x-ray: Radiologist's Impression: Impression: diffuse bilateral interstitial opacities can be seen indicating interstitial pulmonary edema versus atypical pneumonia ECG Data Attestation: I personally reviewed and interpreted this ECG as follows: ( regular supraventricular rhythm with unusual P axis. LAD. LVH. No ischemic changes. Rate 75) MDM Narrative Medical decision making narrative: I added prolactin level which was negative. I believe the patient has a viral illness which might be viral pneumonia given his lung exam and chest x-ray. However he is in no distress and not septic with good oxygen saturation. Even though this is probably viral I will give him a 5 day course of azithromycin as he does seem to have pneumonia and given his age of 80 we will cover possible atypicals. Otherwise he is stable and will follow up with primary care as needed. Return to the ER if worse Discharge Plan Departure Patient Disposition: Home Clinical Impression: Atypical pneumonia Instructions: Atypical Pneumonia, DI for Viral Upper Respiratory Infection -- Adult Activity Restrictions/Additional Instructions: Assessment: Symptoms consistent with viral URI versus possible viral pneumonia based on lung exam and x-ray. Plan: Hydration, rest and supportive care. This is probably viral but just in case it might be bacterial we will treat with azithromycin for 5 days. Prescription is sent to your pharmacy. Follow up with your doctor in 2-3 days for reassessment. Return to the ER if worse Prescriptions: New azithromycin 250 mg tablet 250 mg PO DAILY 4 Days Qty: 4 0RF Rx Instructions: start 09/02/2025 No Action ipratropium bromide 21 mcg (0.03 %) spray,non-aerosol 2 spray intranasal BID PRN (Reason: Postnasal drip) Qty: 30 0RF Rx Instructions: administer into each nostril metformin 500 mg tablet extended release 24 hr 500 mg PO BID Qty: 180 3RF lisinopril 10 mg tablet 10 mg PO DAILY cetirizine 10 mg tablet 10 mg PO DAILY PRN hydrochlorothiazide 12.5 mg tablet 12.5 mg PO DAILY Eliquis 5 mg tablet 5 mg PO BID ketoconazole 2 % shampoo topical ketoconazole 2 % cream 1 applic topical Jardiance 25 mg tablet 25 mg PO DAILY Qty: 90 3RF atorvastatin 10 mg tablet 10 mg PO DAILY Qty: 90 3RF Patient Comments: TAKE ONE TABLET BY MOUTH ONE TIME DAILY metoprolol succinate 25 mg tablet extended release 24 hr 25 mg PO DAILY omeprazole 20 mg capsule,delayed release(DR/EC) 20 mg PO DAILY Qty: 90 1RF aspirin [Aspirin Childrens] 81 mg Tablet,Chewable 81 mg PO DAILY Referrals: Ryan Arevalo DO [Primary Care Provider, Family Practice] Stand Alone Forms: Patient Portal/API
--- NOTE | 2025-09-01 19:00 | DI.RAD.S_ITS ---
PROCEDURE: XR CHEST 2V INDICATIONS: Previous one view only. Symptoms of pneumonia and rales R TECHNIQUE: 2 views of the chest were acquired. COMPARISON: [facility], CR, XR CHEST 1V, 09/01/2025, 15:38. [facility], CR, XR CHEST 1V, 03/29/2025, 16:37. FINDINGS: Surgical changes and devices: Tunneled right IJ port central venous catheter in the mid SVC. Lungs and pleura: Diffuse interstitial opacities in both lungs. No pleural effusions or pneumothorax. Mediastinum: Mediastinal contours are normal. Heart size is normal. Bones and chest wall: No suspicious bony abnormalities. Soft tissues appear unremarkable. IMPRESSION: Diffuse bilateral interstitial opacities can be seen with interstitial pulmonary edema versus atypical pneumonia. Dictated by: Yandel Nguyễn M.D. on 09/01/2025 at 19:59 Approved by: Yandel Nguyễn M.D. on 09/01/2025 at 20:03
[2025-09-01 20:07] LABS: Troponin I 0.089 ng/mL (0.01-0.034)
[2025-09-01 20:12] LABS: Procalcitonin 0.144 ng/mL (<0.5)
[2025-09-01] MEDS: AZITHROMYCIN 250 MG TABLET 500 MG PO (21:38)
== END 2025-09-01 21:49 | disposition home or self-care (01) ==
PROVIDERS: Emergency Medicine; Emergency Provider Emergency Medicine; PCP Family Medicine
DX: J18.9 Pneumonia, unspecified organism (principal)
CPT/HCPCS: 71045; 71046; 80053; 83605; 83880; 84145; 84484; 85007; 85025; 85610; 93005; 99283; 99284

== ENCOUNTER 2025-09-05 14:18 | Inpatient (IN) | payer MEDICARE, SELFPAY ==
[2022-07-07 22:28] VITALS: BMI 32.7
[2025-09-05] VITALS (15 sets, daily range): BP systolic 126–159; BP diastolic 61–72; PULSE 67–79; RESP 14–24; TEMP 37.2; O2SAT 95–98; BMI 32.5; BMI 31.6
--- NOTE | 2025-09-05 14:29 | DI.RAD.S_ITS ---
PROCEDURE: XR CHEST 1V INDICATIONS: Shortness of breath TECHNIQUE: One view of the chest was acquired. COMPARISON: [facility], CR, XR CHEST 2V, 09/01/2025, 19:06. [facility], CR, XR CHEST 1V, 09/01/2025, 15:38. FINDINGS: Surgical changes and devices: Right chest wall Port-A-Cath. Lungs and pleura: Interstitial prominence. No pleural effusions or pneumothorax. Mediastinum: Mediastinal contours appear normal. Heart size is enlarged. Bones and chest wall: No suspicious bony lesions. Overlying soft tissues appear unremarkable. IMPRESSION: Cardiomegaly with prominent interstitial markings concerning for pulmonary edema. Dictated by: Waqas Benitez M.D. on 09/05/2025 at 16:54 Approved by: Waqas Benitez M.D. on 09/05/2025 at 16:54
--- NOTE | 2025-09-05 14:44 | EKG_ITS ---
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
[2025-09-05 16:14] LABS: Hematocrit 36.2 % (41-53); Hemoglobin 11.8 g/dL (13.5-17.5); Mean Corpuscular HGB Conc 32.7 % (30-36); Mean Corpuscular Hemoglobin 27.0 PG (26-34); Mean Corpuscular Volume 82.6 fL (80-100); Platelet Count 212 X10^3/uL (150-400)
[2025-09-05 16:17] LABS: Add Manual Diff / Slide Review YES
[2025-09-05 16:20] LABS: INR 1.1 (0.9-1.3); Prothrombin Time 12.8 SECONDS (9.4-12.5)
[2025-09-05 16:23] LABS: Lactate (Lactic Acid) 1.2 mmol/L (0.7-2.1)
[2025-09-05 16:24] LABS: Alanine Aminotransferase 62 IU/L (<50); Albumin 3.6 g/dL (3.5-5.0); Albumin Globulin Ratio 1.0 (1.0-2.8); Alkaline Phosphatase 74 U/L (38-126); Blood Urea Nitrogen 23 mg/dL (9-20); Calcium 8.6 mg/dL (8.4-10.2); Carbon Dioxide 28 mmol/L (22-32); Chloride 104 mmol/L (98-107); Estimated Glomerular Filt Rate > 60 mL/min (>60); Globulin 3.6 g/dL (1.7-4.1); Glucose 114 mg/dL (70-99); HEMOLYSIS < 15 (0-50); Potassium 4.3 mmol/L (3.4-5.1); Sodium 139 mmol/L (137-145); Total Protein 7.2 g/dL (6.3-8.2)
[2025-09-05 16:35] LABS: NT-proBNP (BNP-Adult 18+) 302 pg/mL (<450); Troponin I 0.072 ng/mL (0.01-0.034)
[2025-09-05 16:41] LABS: Procalcitonin 0.106 ng/mL (<0.5)
[2025-09-05 16:53] LABS: Atypical Lymphocytes Percent 6.0 %; Basophils Percent Manual 1.0 % (0-1); Lymphocytes Percent Manual 48.0 % (25-45); Monocytes Percent Manual 13.0 % (2-11); Neutrophils Absolute Manual 2688 /uL (3000-5900); Segmented Neutrophils Percent 32.0 % (38-70); Total Cells Counted 100
[2025-09-05 16:55] LABS: Anisocytosis 2+; Target Cells 1+
--- NOTE | 2025-09-05 18:25 | P.HP_ITS ---
History of Present Illness History of Present Illness Date Patient Seen: 09/05/25 Chief complaint: SOB ongoing Narrative: Chief complaint: Progressive dyspnea on exertion History of present illness: 09/05: 80-year-old male with a history of hypertension diabetes atrial flutter had progressive exertional dyspnea was treated days ago with azithromycin for presumed upper respiratory infection but without improvement No fever or chills rigors no productive cough Findings in the emergency department significant for fluid dependent airspace pattern suggestive of either viral pneumonitis or pulmonary edema Pro BMT in reference range at 300 troponin 0.08 Past medical history: * 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 * History of atrial flutter status post CTI ablation * Probable chronic coronary artery disease but with a negative stress nuclear medicine in 2024 * Type 2 diabetes mellitus * Basal cell carcinoma and status post cholecystectomy Review of systems: No fever or chills rigors No nausea vomiting diarrhea No paresthesia paresis No urinary symptom Physical exam: Elderly male no acute distress HEENT unremarkable Heart rate and rhythm regular Lungs with diminished breath sounds and diffuse basilar crackles Abdomen nontender nondistended Extremities 2+ bipedal edema Assessment and plan: Symptomatic dyspnea on exertion with findings suggestive of possible pulmonary edema versus atypical viral pneumonia * Empiric ceftriaxone doxycycline * Gentle diuresis * Monitor fluid balance BUN creatinine electrolytes * Monitor clinical progress Chronic Medical problems: * 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 * History of atrial flutter status post CTI ablation * Probable chronic coronary artery disease but with a negative stress nuclear medicine in 2024 * Type 2 diabetes mellitus * Basal cell carcinoma and status post cholecystectomy DVT prophylaxis: * Covered with Eliquis Code status: * Full code Disposition: * Inpatient expect roughly 2 days of hospitalization Time based billing: * 55 minutes were involved in the management of this case including [id number] evaluation of the patient interview with the patient discussion with the emergency provider review of records outside review of imaging and objective laboratory findings and discussion with emergency provider [facility] Medical History GERD (gastroesophageal reflux disease) Near syncope Seasonal allergies Phimosis of penis Viral URI Anemia Pulmonary edema COVID-19 Medicare annual wellness visit, subsequent Encounter for well adult exam with abnormal findings Lower extremity pain Left hip pain Lower back pain Fractures (~1957) Ankle pain (~1958) Mumps (~1953) Measles (~1952) Chicken pox (~1951) Vertigo Atrial flutter (~2020) Skin cancer (~2019) Acute cholecystitis Obstructive sleep apnea (adult) (pediatric) (2019) Cataract associated with other syndromes Tear, knee, medial meniscus Carpal tunnel syndrome on both sides DM (diabetes mellitus) (~2009) HTN (hypertension) Hypercholesteremia Surgical History Anesthesia History of carpal tunnel release (~2022) History of cholecystectomy (~2021) History of cataract removal with insertion of prosthetic lens (~2021) History of cardiac radiofrequency ablation (~2020) History of knee surgery (~2017) History of eye surgery (~1952) Family History Father History of heart attack Mother Cancer Sister Cancer Grandfather Cancer Social History household members: spouse alcohol intake: current Meds Home Medications and Allergies Home Medications ?Medication ?Instructions ?Recorded ?Confirmed ?Type aspirin 81 mg chewable tablet 81 mg PO DAILY 07/08/22 05/04/25 History (Aspirin Childrens) atorvastatin 10 mg tablet 10 mg PO DAILY #90 tabs 02/1505/04/25 Rx empagliflozin 25 mg tablet 25 mg PO DAILY #90 tabs 05/04/25 Rx (Jardiance) ketoconazole 2 % shampoo topical 03/03/24 05/04/25 Hi story ketoconazole 2 % topical cream 1 applic topical 05/04/25 History ipratropium bromide 21 mcg (0.03 2 spray intranasal BI D PRN 03/27/24 05/04/25 Rx %) nasal spray Postnasal drip #30 mL metoprolol succinate 25 mg 25 mg PO DAILY 01/19/25 History tablet,extended release 24 hr omeprazole 20 mg capsule,delayed 20 mg PO DAILY #90 ca ps 02/21/25 05/04/25 Rx release metformin 500 mg tablet,extended 500 mg PO BID #180 ta bs 02/26/25 05/04/25 Rx release 24 hr apixaban 5 mg tablet (Eliquis) 5 mg PO BID 05/04/25 History cetirizine 10 mg tablet 10 mg PO DAILY PRN 05/04/25 05/04/25 History hydrochlorothiazide 12.5 mg tablet 12.5 mg PO DAILY 05/04/25 History lisinopril 10 mg tablet 10 mg PO DAILY 05/04/2504/17 History azithromycin 250 mg tablet 250 mg PO DAILY 4 days #4 t abs 09/01/25 Rx Allergies Allergy/AdvReac Type Severity Reaction Status Date / Time No Known Drug Allergies Allergy Verified 09/05/25 14:21 Exam Vital Signs (past 8 hours): - 09/05/25 14:21 Temperature 98.9 F Pulse Rate 77 Respiratory Rate 20 Blood Pressure 156/68 H Pulse Oximetry 97 Oxygen Delivery Method Room Air Oxygen Delivery Method Room Air Objective Labs 09/05/25 15:45 09/05/25 15:45 Labs: Laboratory Results - last 24 hr 09/05/25 15:45 WBC 8.4 RBC 4.39 L Hgb 11.8 L Hct 36.2 L MCV 82.6 MCH 27.0 MCHC 32.7 RDW 23.4 H Plt Count 212 Neut % (Auto) Not Reportable Lymph % (Auto) Not Reportable [place] % (Auto) Not Reportable Eos % (Auto) Not Reportable Baso % (Auto) Not Reportable Lymph # (Auto) Not Reportable [place] # (Auto) Not Reportable Baso # (Auto) Not Reportable Total Counted 100 Seg Neutrophils % 32.0 L Lymphocytes % (Manual) 48.0 H Atypical Lymphs % 6.0 H Monocytes % (Manual) 13.0 H Basophils % (Manual) 1.0 Neutrophils # (Manual) 2688 L RBC Morphology See below Anisocytosis 2+ H Target Cells 1+ H PT 12.8 H INR 1.1 Sodium 139 Potassium 4.3 Chloride 104 Carbon Dioxide 28 BUN 23 H Creatinine 0.92 Estimated GFR > 60 BUN/Creatinine Ratio 25.0 H Glucose 114 H Lactate 1.2 Calcium 8.6 Total Bilirubin 0.4 AST 70 H ALT 62 H Alkaline Phosphatase 74 Troponin I 0.072 H NT-Pro-B Natriuret Pep 302 Total Protein 7.2 Albumin 3.6 Globulin 3.6 Albumin/Globulin Ratio 1.0 Procalcitonin 0.106 Assessment & Plan Time-Based Coding :: [TOTAL MINUTES] spent with patient and on the chart (including review of chart, obtaining history, exam, reviewing outside data, placing orders, documenting exam and treatment plan, and counseling patient) on [DATE].
[2025-09-05] MEDS: FUROSEMIDE 40 MG/4 ML VIAL IV (19:04)
[2025-09-05 19:06] LABS: NT-proBNP (BNP-Adult 18+) 277 pg/mL (<450); Troponin I 0.069 ng/mL (0.01-0.034)
--- NOTE | 2025-09-05 19:09 | ED_ITS ---
HPI - SOB/Dyspnea General Chief Complaint: Shortness of Breath/Dyspnea Stated Complaint: SOB ongoing Time Seen by Provider: 09/05/25 15:08 Source: patient Mode of arrival: Ambulatory Limitations: no limitations History of Present Illness HPI Narrative: 80-year-old M with a history of HTN, DM, Afib re-presented to the ER 5 days after being discharged for treatment for atypical pneumonia with azithromycin. Patient's SOB has not improved and has significantly decreased exercise tolerance from 2 miles down to 0.5 miles. Patient also with 1+ pitting edema to ankles. 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 Conway * History of atrial flutter status post CTI ablation * Probable chronic coronary artery disease but with a negative stress nuclear medicine in 2024 * Type 2 diabetes mellitus * Basal cell carcinoma and status post cholecystectomy Related Data Home Medications ?Medication ?Instructions ?Recorded ?Confirmed aspirin 81 mg chewable tablet 81 mg PO DAILY 07/08/22 09/05/25 (Aspirin [facility]) metoprolol succinate 25 mg 25 mg PO BID 01/19/2509/05 tablet,extended release 24 hr cetirizine 10 mg tablet 10 mg PO DAILY PRN allergy s ymptoms 05/04/25 09/05/25 lisinopril 10 mg tablet 20 mg PO DAILY 05/04/2508/18 amlodipine 10 mg tablet 10 mg PO DAILY 09/05/2508/18 triamcinolone acetonide 55 mcg 1 spray intranasal CAMERON Y 09/05/25 09/05/25 nasal spray aerosol (Aller-Bolivar) Previous Rx's ?Medication ?Instructions ?Recorded empagliflozin 25 mg tablet 25 mg PO DAILY #90 tabs (Jardiance) omeprazole 20 mg capsule,delayed 20 mg PO DAILY #90 ca ps 02/21/25 release metformin 500 mg tablet,extended 500 mg PO BID #180 ta bs 02/26/25 release 24 hr atorvastatin 10 mg tablet 10 mg PO BEDTIME #90 tabs cefdinir 300 mg capsule 300 mg PO BID #14 caps 09/06 doxycycline hyclate 100 mg capsule 100 mg PO BID #14 c aps 09/06/25 furosemide 20 mg tablet 20 mg PO DAILY #7 tabs 09/06 guaifenesin 600 mg tablet, 600 mg PO BID #30 tabs 08/19 extended release 12 hr (Mucus Relief ER) prednisone 20 mg tablet 20 mg PO BID #10 tabs Allergies Allergy/AdvReac Type Severity Reaction Status Date / Time No Known Drug Allergies Allergy Verified 09/05/25 14:21 Review of Systems Review of Systems ROS Unobtainable: All systems reviewed & are unremarkable except as noted in HPI and below Patient History Medical History GERD (gastroesophageal reflux disease) Near syncope Seasonal allergies Phimosis of penis Viral URI Anemia Pulmonary edema COVID-19 Medicare annual wellness visit, subsequent Encounter for well adult exam with abnormal findings Lower extremity pain Left hip pain Lower back pain Fractures (~1957) Ankle pain (~1958) Mumps (~1953) Measles (~1952) Chicken pox (~1951) Vertigo Atrial flutter (~2020) Skin cancer (~2019) Acute cholecystitis Obstructive sleep apnea (adult) (pediatric) (2019) Cataract associated with other syndromes Tear, knee, medial meniscus Carpal tunnel syndrome on both sides DM (diabetes mellitus) (~2009) HTN (hypertension) Hypercholesteremia Surgical History Anesthesia History of carpal tunnel release (~2022) History of cholecystectomy (~2021) History of cataract removal with insertion of prosthetic lens (~2021) History of cardiac radiofrequency ablation (~2020) History of knee surgery (~2017) History of eye surgery (~1952) Family History Father History of heart attack Mother Cancer Sister Cancer Grandfather Cancer Social History household members: spouse alcohol intake: current alcohol intake frequency: a few times a month Exam Narrative Exam Narrative: Patient with significant crackles to bilateral bases of the lungs as well as 2+ pitting edema in lower extremities consistent with fluid overload. Initial Vital Signs Initial Vital Signs: Vital Signs Temperature 98.9 F 09/05/25 14:21 Pulse Rate 77 09/05/25 14:21 Respiratory Rate 20 09/05/25 14:21 Blood Pressure 156/68 H 09/05/25 14:21 Pulse Oximetry 97 09/05/25 14:21 Oxygen Delivery Method Room Air 09/05/25 14:21 Const General: cooperative, healthy appearing, comfortable, well developed and well hydrated Nutritional Appearance: average body habitus [facility] Head: normal to inspection Ears: external ears normal Nose: external nose normal and nares normal Face and sinus: sinuses nontender, face symmetric, ecchymosis not on the right, not on the left and not bilaterally, erythema not on the right, not on the left and not bilaterally and edema not on the right, not on the left and not bilaterally Mouth: lip normal Eyes General: Yes appearance normal, both eyes and all related structures Eyelids: eyelids normal Sclera: sclerae normal Pupils: PERRL Neck Neck: normal visual inspection Resp Effort & Inspection: normal respiratory effort and able to speak in complete sentences Cardio Rate: regular rate Rhythm: regular rhythm Pulses: radial pulses present GI Inspection: normal to inspection and non-distended General: bimanual renal exam normal bilaterally Back/Spine/Pelvis Back: normal to inspection Skin General: no rashes or lesions noted Neuro General: patient alert, patient awake, patient oriented x3, gait normal, moves all extremities, normal light touch, pain and propioception, no focal motor deficits and CN's II-XI intact bilaterally Cognition: normal cognition Speech: speech normal Gait: normal gait Motor: muscle tone normal throughout Sensory Exam: no sensory deficits noted Psych Appearance: grossly normal Mental Status: mental status grossly normal Speech and Movement: speech and movement normal Mood: congruent mood Attitude: cooperative Thought Process: normal Thought Content: normal Judgment: judgment good Course Orders Ordered: Discontinued Medications Hydrocodone Bitart/Acetaminophen (Hydrocodone/Acet 5/325 Tablet) 1 tab PO Q4H PRN PRN Reason: Pain, Moderate (4-6) Amlodipine Besylate (Amlodipine 5 Mg Tablet) 10 mg PO DAILY [facility] Last Admin: 09/06/25 08:44 Dose: 10 mg Documented By: KELSEY Apixaban (Apixaban 5 Mg Tablet) 5 mg PO BID [facility] Last Admin: 09/06/25 08:41 Dose: Not Given Documented By: Admin: 09/05/25 22:42 Dose: Not Given Documented By: CELY Aspirin (Aspirin 81 Mg Chew Tab) 81 mg PO DAILY [facility] Last Admin: 09/06/25 08:44 Dose: 81 mg Documented By: KELSEY Atorvastatin Calcium (Atorvastatin 20 Mg Tablet) 10 mg PO BEDTIME [facility] Last Admin: 09/05/25 22:11 Dose: 10 mg Documented By: CELY Enoxaparin Sodium (Enoxaparin 40 Mg/0.4 Ml Syringe) 40 mg SUBCUT DAILY [facility] Furosemide (Furosemide 40 Mg/4 Ml Vial) 40 mg IV NOW ONE Stop: 09/05/25 18:05 Last Admin: 09/05/25 19:04 Dose: 40 mg Documented By: EMMA Furosemide (Furosemide 20 Mg/2 Ml Vial) 20 mg IV BID [facility] Last Admin: 09/06/25 08:45 Dose: 20 mg Documented By: Admin: 09/05/25 22:13 Dose: 20 mg Documented By: CELY Guaifenesin (Guaifenesin Solution 100 Mg/5 Ml Udc) 200 mg PO Q4HR PRN PRN Reason: Cough Guaifenesin (Guaifenesin Er 600 Mg Tab) 600 mg PO BID [facility] Last Admin: 09/06/25 08:44 Dose: 600 mg Documented By: Admin: 09/05/25 22:11 Dose: 600 mg Documented By: CELY Hydrochlorothiazide (Hydrochlorothiazide 25 Mg Tablet) 12.5 mg PO DAILY [facility] Last Admin: 09/06/25 08:44 Dose: 12.5 mg Documented By: KELSEY Ceftriaxone Sodium 1,000 mg/ (Sodium Chloride) 100 mls @ 200 mls/hr IV Q24H [facility] Last Infusion: 09/05/25 19:54 Dose: Infused Documented By: Admin: 09/05/25 19:10 Dose: 200 mls/hr Documented By: EMMA Doxycycline Hyclate 100 mg/ (Sodium Chloride) 100 mls @ 100 mls/hr IV Q12H [facility] Last Admin: 09/05/25 22:39 Dose: 100 mls/hr Documented By: CELY Doxycycline Hyclate 100 mg/ (Sodium Chloride) 100 mls @ 100 mls/hr IV Q12H [facility] Last Infusion: 09/06/25 12:42 Dose: Infused Documented By: Admin: 09/06/25 10:53 Dose: 100 mls/hr Documented By: KELSEY Ibuprofen (Ibuprofen 400 Mg Tablet) 400 mg PO Q4H [facility] Ipratropium [place] (Ipratropium 0.06% Nasal 15 Ml) 2 spray NASAL BID PRN PRN Reason: Postnasal drip Lisinopril (Lisinopril 10 Mg Tablet) 10 mg PO DAILY [facility] Last Admin: 09/06/25 08:44 Dose: 10 mg Documented By: KELSEY Loratadine (Loratadine 10 Mg Tablet) 10 mg PO DAILY PRN PRN Reason: Allergic Symptoms Methylprednisolone (Methylprednisolone Succ 40 Mg/Ml Vial) 40 mg IV Q8HR [facility] Last Admin: 09/06/25 06:20 Dose: 40 mg Documented By: Admin: 09/05/25 22:13 Dose: 40 mg Documented By: Admin: 09/05/25 19:10 Dose: 40 mg Documented By: EMMA Metoprolol Succinate (Metoprolol Er 25 Mg Tablet) 25 mg PO DAILY [facility] Last Admin: 09/06/25 08:44 Dose: 25 mg Documented By: KELSEY Naloxone HCl (Naloxone 0.4 Mg/Ml Vial) 0.2 mg IV Q2MIN PRN PRN Reason: Opiate Reversal Non-Formulary Medication (Empagliflozin [Jardiance]) 25 mg PO DAILY [facility] Non-Formulary Medication (Ipratropium [place]) 2 spray NASAL BID PRN PRN Reason: Postnasal drip Non-Formulary Medication (Omeprazole) 20 mg PO DAILY [facility] Non-Form: Aller-Bolivar (Triamcinolone Acet ) 55mcg Aerosol [place] 1 spray NASAL DAILY [facility] Last Admin: 09/06/25 08:58 Dose: Not Given Documented By: KELSEY Ondansetron HCl (Ondansetron 4 Mg/2 Ml Inj) 4 mg IV Q8HR PRN PRN Reason: Nausea And Vomiting Pantoprazole Sodium (Pantoprazole Dr 20 Mg Tablet) 20 mg PO 0600 [facility] Last Admin: 09/06/25 06:19 Dose: 20 mg Documented By: CELY Vital Signs Vital signs: Vital Signs - 8 hr 09/05/25 14:21 Temperature 98.9 F Pulse Rate 77 Respiratory Rate 20 Blood Pressure 156/68 H Pulse Oximetry 97 Oxygen Delivery Method Room Air MDM - SOB/Dyspnea Lab Data 09/05/25 15:45 09/05/25 15:45 Labs: Lab Results 09/05/25 09/05/25 Range/Units 15:45 18:33 WBC 8.4 (4.5-11.0) X10^3/uL RBC 4.39 L (4.5-5.9) X10^6/uL Hgb 11.8 L (13.5-17.5) g/dL Hct 36.2 L (41-53) % MCV 82.6 (80-100) fL MCH 27.0 (26-34) PG MCHC 32.7 (30-36) % RDW 23.4 H (11.6-14.8) % Plt Count 212 (150-400) X10^3/uL Neut % (Auto) Not Reportable Lymph % (Auto) Not Reportable [place] % (Auto) Not Reportable Eos % (Auto) Not Reportable Baso % (Auto) Not Reportable Lymph # (Auto) Not Reportable [place] # (Auto) Not Reportable Baso # (Auto) Not Reportable Total Counted 100 Seg Neutrophils % 32.0 L (38-70) % Lymphocytes % (Manual) 48.0 H (25-45) % Atypical Lymphs % 6.0 H ( - 0) % Monocytes % (Manual) 13.0 H (2-11) % Basophils % (Manual) 1.0 (0-1) % Neutrophils # (Manual) 2688 L (3617-7912) /uL RBC Morphology See below Anisocytosis 2+ H Target Cells 1+ H PT 12.8 H (9.4-12.5) SECONDS INR 1.1 (0.9-1.3) Sodium 139 (137-145) mmol/L Potassium 4.3 (3.4-5.1) mmol/L Chloride 104 (98-107) mmol/L Carbon Dioxide 28 (22-32) mmol/L BUN 23 H (9-20) mg/dL Creatinine 0.92 (0.66-1.25) mg/dL Estimated GFR > 60 (>60) mL/min BUN/Creatinine Ratio 25.0 H (6-22) Glucose 114 H (70-99) mg/dL Lactate 1.2 (0.7-2.1) mmol/L Calcium 8.6 (8.4-10.2) mg/dL Total Bilirubin 0.4 (0.2-1.3) mg/dL AST 70 H (17-59) IU/L ALT 62 H (<50) IU/L Alkaline Phosphatase 74 (38-126) U/L Troponin I 0.072 H 0.069 H (0.01-0.034) ng/mL NT-Pro-B Natriuret Pep 302 277 (<450) pg/mL Total Protein 7.2 (6.3-8.2) g/dL Albumin 3.6 (3.5-5.0) g/dL Globulin 3.6 (1.7-4.1) g/dL Albumin/Globulin Ratio 1.0 (1.0-2.8) Procalcitonin 0.106 (<0.5) ng/mL ECG Data Interpretation: ECG NSR w/ normal intervals aside from ST-elevation in V3 and V4 not consistent with ischemia and not consistent with STEMI pattern MDM Narrative Medical decision making narrative: Pt presents w/ Acute on chronic SOB. Chest x-ray for consideration of pneumonia, pneumothorax, or congestive heart failure. EKG, troponin in consideration of arrhythmia, Acute Coronary Syndrome, Acute Myocardial Infarction. Check labs due to consideration of anemia, electrolyte abnormalities, including hypokalemia, hyperkalemia, hyponatremia, hypernatremia, hyperglycemia, hypoglycemia. No CT chest indicated as I considered but do not clinically suspect aortic dissection/pulmonary embolism. Re-eval Patient with mildly increased work of breathing, significant fluid overload, and 2nd ER visit within a week. Will admit for more aggressive treatment of CHF as well as further diagnosis as patient has never been on diuretics before. Critical Care Time Critical Care Time Attestation: Critical Care Time [35] minutes for mgmt of acute dyspnea and new fluid overload c/w heart failure Critical care time is separate from other billable procedures. This critical care time includes consultation with family and other consulting doctors, review of records, and interpretation of data from labs, EKGs, imaging, etc. Discharge Plan Departure Patient Disposition: Admitted As Inpatient Clinical Impression: Acute dyspnea Admit Date/Time: 09/05/25 18:35 Admit Provider: Cristian Wagner
[2025-09-05] MEDS: methylPREDNISolone succ 40 MG/ML VIAL IV ×2 (19:10→22:13)
[2025-09-05] MEDS: ATORVASTATIN 20 MG TABLET 10 MG PO (22:11)
[2025-09-05] MEDS: FUROSEMIDE 20 MG/2 ML VIAL IV (22:13)
[2025-09-05] MEDS: DOXYCYCLINE 100 MG in SODIUM CHLORIDE 0.9% 100 ML IV (22:39)
[2025-09-05 23:05] LABS: Appearance Urine UA CLEAR; Bilirubin Urine UA NEGATIVE (NEGATIVE); Color Urine UA YELLOW; Glucose Urine UA 2+ g/dL (Negative); Ketones Urine UA NEGATIVE (NEGATIVE); Leukocyte Esterase Urine UA NEGATIVE (NEGATIVE); Nitrite Urine UA NEGATIVE (Negative); Occult Blood Urine UA TRACE-INTACT (Negative); Protein Urine UA NEGATIVE (Negative); Specific Gravity Urine UA 1.010 (1.000-1.035); Urobilinogen Urine UA 0.2 E.U./dL (0.2); pH Urine UA 5.5 (4.5-8.0)
[2025-09-05 23:24] LABS: Culture Indicated Urine Cult Not Indicated
[2025-09-06] MEDS: PANTOPRAZOLE DR 20 MG TABLET PO (06:19)
[2025-09-06] MEDS: methylPREDNISolone succ 40 MG/ML VIAL IV (06:20)
[2025-09-06 07:59] VITALS: BP 110/53; PULSE 62; RESP 18; TEMP 36.6; O2SAT 97
[2025-09-06] MEDS: METOPROLOL ER 25 MG TABLET PO (08:44)
[2025-09-06] MEDS: ASPIRIN 81 MG CHEW TAB PO (08:44)
[2025-09-06] MEDS: FUROSEMIDE 20 MG/2 ML VIAL IV (08:45)
--- NOTE | 2025-09-06 09:00 | CM.DANOTE ---
Initial DCP Assessment Note. Review EMR and PT Interview. Met with patient at bedside to discuss discharge needs.PT is alert x 4 sitting up in chair. No acute distress. Independent. Live with spouse. Payor:[facility] PCP: ? Summary & Plan:?80 y/o male arrived to ED via POV c/o SOB. Admitted INPT. Dx. Atypical PNA. Plan: Recheck labs, pain control, IV ABX, IVF, DC home with when improved. Discharge Planning/Care Management CM Discharge Assessment Start: 09/05/25 20:54 Freq: Status: Active Protocol: Document 09/06/25 08:57 SM (Rec: 09/06/25 08:59 SM [id number]) Discharge Planning Assessment Assigned Discharge Faye Hickman RN CM Wrecking Mechanic Provider Dr. Arevalo Insurance [facility] Advance Directives? Yes Advance Directives No on File History Provided By Patient,Family Member,Medical Record Has Patient been No admitted in last 30 days? Prior Living House Arrangements Household Members spouse Type of Drives own vehicle transporation used prior to admit Independent with ADL Yes 's Is patient alert and Yes oriented? Caregiver for No Another Comment Patient uses no DME at baseline. Barriers to No Discharge Discharge Plan Home Transportation Family to provide transport. Arrangement Referrals Initiated None needed Review Status In Process Please Provide Date 09/06/25 Initial DC Assessment Was Performed Next Review Type Continued Stay Review
[2025-09-06] MEDS: DOXYCYCLINE 100 MG in SODIUM CHLORIDE 0.9% 100 ML IV (10:53)
[2025-09-06 11:50] VITALS: BP 117/56; PULSE 63; RESP 16; TEMP 36.8; O2SAT 98
--- NOTE | 2025-09-06 12:38 | PC.NURSE ---
Patient is A&OX4, VSS, afebrile on RA. He denied c/o of nausea, dizziness, pain or SOB. He tolerated IV abx well and is able to ambulate around the room with SBA. The hopsitalist evaluates patient at bedside and clears him for discharge home today. Pharmacist arrives to discuss new medications. Patient and verbalizes understanding of plan of care. He is escorted via w/ch to private car for discharge today at approximately 12 pm with all of his belongings.
== END 2025-09-06 12:30 | disposition home or self-care (01) | DRG 189 ==
LOC: ED 18:29 → AC 18:36
PROVIDERS: Admitting Provider Internal Medicine; Emergency Provider Emergency Medicine; PCP Family Medicine; Referring Provider Emergency Medicine; Visit Provider Internal Medicine
DX: J81.1 Chronic pulmonary edema (principal); J12.9 Viral pneumonia, unspecified; C15.9 Malignant neoplasm of esophagus, unspecified; I42.9 Cardiomyopathy, unspecified; R06.09 Other forms of dyspnea; I25.10 Atherosclerotic heart disease of native coronary artery without angina pectoris; K21.9 Gastro-esophageal reflux disease without esophagitis; E11.9 Type 2 diabetes mellitus without complications; I10 Essential (primary) hypertension; Z90.49 Acquired absence of other specified parts of digestive tract; Z86.79 Personal history of other diseases of the circulatory system; Z95.828 Presence of other vascular implants and grafts; Z87.891 Personal history of nicotine dependence; Z79.84 Long term (current) use of oral hypoglycemic drugs
CPT/HCPCS: 36415; 71045; 80053; 81001; 83605; 83880; 84145; 84484; 85007; 85025; 85610; 87040; 93005; 93010; 96365; 96375; 99283; 99291; J0696; J1938; J2919; J7050

== ENCOUNTER → 2025-09-12 07:52 | Outpatient (CLI) | payer MEDICARE, SELFPAY ==
[2025-09-05 21:04] VITALS: BMI 31.6
--- NOTE | 2025-09-12 07:53 | DI.ECHO.S_ITS ---
[facility]+ [facility] : : [address] : [place] : : [id number] : : Phone: [phone] Echocardiogram Report + + :Name: COLLEEN AYON Study Date: 09/12/2025 Height: 69 in : :[facility] ReadingLocation: Weight: 216 lb : : Gender: Male BSA: 2.1 m2 : :: 1945 Age: 80 yrs BP: 126/67 mmHg: :Reason For Study: Dyspnea : :Ordering Physician: RASHIDA, : :ADRIAN Performed By: Kevan Carrillo : :Referring: ADRIAN FIELD : + + Interpretation Summary Left ventricular wall thickness is mildly increased. The ejection fraction is estimated to be 55-60%. Normal diastolic function. The left atrium is moderately dilated. The right ventricle is normal in size and function. There is mild mitral regurgitation. There is mild aortic regurgitation. There is mild tricuspid regurgitation. Pulmonary artery pressures cannot be estimated because of the lack of a measurable TR jet velocity but the IVC suggests a CVP of around 3 mmHg. The ascending aorta is mildly enlarged. Compared to prior study 11/06/2024, left ventricle appears slightly more dynamic. Procedure: A two-dimensional transthoracic echocardiogram with color flow and Doppler was performed. The study quality was technically adequate. Comparison is made with the echocardiogram of 10/20/2024. The heart rate ranged between 65-68 bpm during the study. Left Ventricle: The left ventricle is normal in size. Left ventricular wall thickness is mildly increased. Overall left ventricular systolic function is preserved. The ejection fraction is estimated to be 55-60%. Normal diastolic function. Right Ventricle: The right ventricle is normal in size and function. Atria: The left atrium is moderately dilated. Right atrial size is normal. There is no Doppler evidence for an interatrial shunt. Mitral Valve: The mitral valve leaflets appear to open well. There is mild mitral annular calcification. There is no mitral valve stenosis. There is mild mitral regurgitation. Aortic Valve: The aortic valve is trileaflet. The aortic valve opens well. The aortic valve is slightly calcified. There is no aortic valve stenosis. There is mild aortic regurgitation. Tricuspid Valve: The tricuspid valve is not well visualized, but is grossly normal. There is mild tricuspid regurgitation. Pulmonary artery pressures cannot be estimated because of the lack of a measurable TR jet velocity but the IVC suggests a CVP of around 3 mmHg. Pulmonic Valve: The pulmonic valve is not well seen, but is grossly normal. There is trace pulmonic regurgitation. Great Vessels: Based on patient BSA the aortic root in the area of the sinuse of Valsalva with a max diameter of 4.1 cm is with in normal range. Based on patient BSA the proximal ascending aorta is mildly dilated with a max diameter of 4.1 cm. The ascending aorta is mildly enlarged. The pulmonary artery is normal size. The IVC is of normal diameter and collapses greater than 50% with a sniff. This suggests a low right atrial pressure of 3 mm Hg. Pericardium/ Pleura There is no pericardial effusion. MMode/2D Measurements & Calculations LVIDd: 4.7 cm LVOT diam: 2.5 cm LVIDs: 2.8 cm Ao root diam: 4.1 cm FS: 39.0 % asc Aorta Diam: 4.1 cm EPSS: 0.51 cm IVSd: 1.3 cm LVPWd: 1.3 cm LV dumont. diameter/BSA (cm/m^2): 2.2 LV sys. diameter/BSA (cm/m^2): 1.3 LA A2 area: 24.6 cm2 RA long axis: 5.9 cm LA A4 area: 31.9 cm2 RA area: 14.2 cm2 LA length (vol): 6.8 cm RA vol: 29.1 ml LA vol: 97.2 ml RA : 13.6 ml/m2 LA vol index: 45.5 ml/m2 IVC diam: 1.3 cm RVD1 (basal): 3.3 cm RVD2 (mid): 3.0 cm TAPSE: 1.7 cm Doppler Measurements & Calculations Ao V2 max: 133.0 cm/sec LVOT Max Roman: 87.1 cm/sec Ao V2 mean: 95.9 cm/sec LV V1 max P.0 mmHg Ao max P.1 mmHg LV V1 VTI: 16.7 cm Ao mean P.1 mmHg JOSE(I,D): 3.1 cm2 Ao V2 VTI: 25.2 cm JOSE(V,D): 3.1 cm2 sev ratio: 0.66 JOSE indexed to BSA (cm^2/m^2): 1.5 AI P1/2t: 523.0 msec AI dec slope: 219.8 cm/sec2 MV E max roman: 60.8 cm/sec TR max roman: 249.1 cm/sec MV A max roman: 77.6 cm/sec TR max P.9 mmHg MV E/A: 0.78 PA V2 max: 113.3 cm/sec Med Peak E' Roman: 7.3 cm/sec PA V2 mean: 73.3 cm/sec E/E' med: 8.3 PA mean P.5 mmHg Lat Peak E' Roman: 9.8 cm/sec PA pr(Accel): 32.8 mmHg E/E' lat: 6.2 E/e' average: 7.2 MV dec time: 0.20 sec SV(LVOT): 78.6 ml Qp/Qs (V,Ao): 1.0/4.6 Qp/Qs (V,LVOT): 1.0/1.1 Reading Physician:09:52 AM
== END ==
LOC: ECHO 07:53
PROVIDERS: PCP Family Medicine; Referring Provider Family Medicine; Visit Provider Family Medicine
DX: I08.3 Combined rheumatic disorders of mitral, aortic and tricuspid valves (principal); I77.810 Thoracic aortic ectasia; R06.00 Dyspnea, unspecified; R55 Syncope and collapse
CPT/HCPCS: 93306

== ENCOUNTER 2025-09-19 16:41 | Emergency (ER) | payer MEDICARE, SELFPAY ==
[2025-09-05 21:04] VITALS: BMI 31.6
[2025-09-19 16:52] VITALS: BP 154/66; PULSE 55; RESP 17; TEMP 36.6; O2SAT 94; BMI 30.9
--- NOTE | 2025-09-19 16:59 | ED.RECABL ---
HPI - Recheck/Abnormal Lab/Rx General Chief Complaint: Recheck/Abnormal Lab/Rx Stated Complaint: port removal Time Seen by Provider: 09/19/25 16:58 Source: patient Mode of arrival: Ambulatory History of Present Illness HPI narrative: Mr. Santillan is a pleasant 80-year-old male with a past medical history of esophageal, gastric, liver cancer currently undergoing immunotherapy at [facility] who presents to the emergency department to have his port de-accessed. Patient went to [facility] today for scheduled immunotherapy however after further review of his recent hospitalizations, his team decided not to do immunotherapy today. However his port was accessed and after discussing with the provider that he was not going to have immunotherapy he ended up leaving. They shortly called him to inform him that he needs his port access removed. Because he had already left the [place] area, they encouraged to come to the closest emergency department to have the port access removed. He has no other concerns at this time. Related Data Home Medications ?Medication ?Instructions ?Recorded ?Confirmed aspirin 81 mg chewable tablet 81 mg PO DAILY 07/08/22 09/18/25 (Aspirin Childrens) metoprolol succinate 25 mg 25 mg PO BID 01/19/25 09/18/25 tablet,extended release 24 hr cetirizine 10 mg tablet 10 mg PO DAILY PRN allergy symptoms 05/04/25 09/18/25 triamcinolone acetonide 55 mcg 1 spray intranasal DAILY 09/05/25 09/18/25 nasal spray aerosol (Aller-Bolivar) Previous Rx's ?Medication ?Instructions ?Recorded empagliflozin 25 mg tablet 25 mg PO DAILY #90 tabs 03/03/24 (Jardiance) omeprazole 20 mg capsule,delayed 20 mg PO DAILY #90 caps 02/21/25 release metformin 500 mg tablet,extended 500 mg PO BID #180 tabs 02/26/25 release 24 hr atorvastatin 10 mg tablet 10 mg PO BEDTIME #90 tabs 09/06/25 cefdinir 300 mg capsule 300 mg PO BID #14 caps 09/06/25 doxycycline hyclate 100 mg capsule 100 mg PO BID #14 caps 09/06/25 guaifenesin 600 mg tablet, 600 mg PO BID #30 tabs 09/06/25 extended release 12 hr (Mucus Relief ER) amlodipine 5 mg tablet 5 mg PO BEDTIME #90 tabs 09/10/25 furosemide 20 mg tablet 20 mg PO DAILY #90 tabs 09/10/25 lisinopril 20 mg tablet 20 mg PO DAILY #90 tabs 09/10/25 prednisone 20 mg tablet 40 mg (2 x 20 mg) PO DAILY #14 tabs 09/10/25 spironolactone 25 mg tablet 25 mg PO .noon #90 tabs 09/10/25 Allergies Allergy/AdvReac Type Severity Reaction Status Date / Time No Known Drug Allergies Allergy Verified 09/19/25 16:53 Review of Systems Review of Systems ROS Unobtainable: All systems reviewed & are unremarkable except as noted in HPI and below Patient History Medical History Malignant neoplasm of colon, unspecified Heart failure, unspecified GERD (gastroesophageal reflux disease) Near syncope Seasonal allergies Phimosis of penis Viral URI Anemia Pulmonary edema COVID-19 Medicare annual wellness visit, subsequent Encounter for well adult exam with abnormal findings Lower extremity pain Left hip pain Lower back pain Fractures (~1957) Ankle pain (~1958) Mumps (~1953) Measles (~1952) Chicken pox (~1951) Vertigo Atrial flutter (~2020) Skin cancer (~2019) Acute cholecystitis Obstructive sleep apnea (adult) (pediatric) (2019) Cataract associated with other syndromes Tear, knee, medial meniscus Carpal tunnel syndrome on both sides DM (diabetes mellitus) (~2009) HTN (hypertension) Hypercholesteremia Surgical History Anesthesia History of carpal tunnel release (~2022) History of cholecystectomy (~2021) History of cataract removal with insertion of prosthetic lens (~2021) History of cardiac radiofrequency ablation (~2020) History of knee surgery (~2017) History of eye surgery (~1952) Family History Father History of heart attack Mother Cancer Sister Cancer Grandfather Cancer Social History household members: spouse alcohol intake: current alcohol intake frequency: a few times a month Exam Narrative Exam Narrative: GENERAL: 80 year old patient appears stated age. Well-developed patient, in no acute distress. HEAD: Atraumatic. Normocephalic. NECK: Trachea midline. Cervical ROM intact. CARDIOVASCULAR: Regular rate RESPIRATORY: ?Nonlabored respirations. ?Speaking in clear, full sentences. ? NEURO: AOx3. ?Clear speech. ?Moves all 4 extremities appropriately. SKIN: R chest port present. Initial Vital Signs Initial Vital Signs: Vital Signs Temperature 98 F 09/19/25 16:52 Pulse Rate 55 L 09/19/25 16:52 Respiratory Rate 17 09/19/25 16:52 Blood Pressure 154/66 H 09/19/25 16:52 Pulse Oximetry 94 09/19/25 16:52 Oxygen Delivery Method Room Air 09/19/25 16:52 Course Orders Ordered: Discontinued Medications Heparin Sodium (Porcine) (Heparin 500 Unit/5 Ml Port Flush) 500 unit IV PRN PRN PRN Reason: Flush Last Admin: 09/19/25 17:07 Dose: 500 unit Documented By: MINNA Vital Signs Vital signs: Vital Signs - 8 hr 09/19/25 16:52 Temperature 98 F Pulse Rate 55 L Respiratory Rate 17 Blood Pressure 154/66 H Pulse Oximetry 94 Oxygen Delivery Method Room Air MDM - Recheck/Abnormal Lab/Rx Medical Records Attestation: I reviewed the patient's medical records. MDM Narrative Medical decision making narrative: 80-year-old male with a past medical history of esophageal, gastric, liver cancer currently undergoing immunotherapy at [facility] who presents to the emergency department to have his port de-accessed after it was accidentally left in earlier today at an outside facility. Nursing staff de-access port after heparin flush. Patient tolerated well, no concerns. He is stable for discharge home, discussed ER return precautions. He verbalized understanding all information agreeable with the plan stable for discharge home at this time. Discharge Plan Departure Patient Disposition: Home Clinical Impression: Encounter for care related to vascular access port Instructions: DI for Implanted Venous Access Port Activity Restrictions/Additional Instructions: Dear Jacque, Thank you for coming to the emergency department. Today you were evaluated to have your port site de-accessed. Nursing staff was able to do this for you. Please follow up with your cancer team as scheduled. Please come to this emergency department if you ever have any concerns. Please follow up with your primary care doctor within the next 2-3 days for ER follow-up. (If you do not have a PCP you can call [phone]. ?to schedule an appointment with an [facility] Primary Care Provider) IF YOU DEVELOP ANY NEW OR WORSENING SYMPTOMS, RETURN TO THE ER! Please read the attached instructions, they highlight more specific treatments and interventions for you at home. Thank you for letting me participate in your care, Maren Haile PA-C Prescriptions: No Action metformin 500 mg tablet extended release 24 hr 500 mg PO BID Qty: 180 3RF atorvastatin 10 mg tablet 10 mg PO BEDTIME Qty: 90 3RF Patient Comments: TAKE ONE TABLET BY MOUTH ONE TIME DAILY cetirizine 10 mg tablet 10 mg PO DAILY PRN (Reason: allergy symptoms) amlodipine 5 mg tablet 5 mg PO BEDTIME Qty: 90 3RF spironolactone 25 mg tablet 25 mg PO .noon Qty: 90 1RF furosemide 20 mg tablet 20 mg PO DAILY Qty: 90 1RF prednisone 20 mg tablet 40 mg PO DAILY Qty: 14 0RF lisinopril 20 mg tablet 20 mg PO DAILY Qty: 90 1RF Jardiance 25 mg tablet 25 mg PO DAILY Qty: 90 3RF metoprolol succinate 25 mg tablet extended release 24 hr 25 mg PO BID omeprazole 20 mg capsule,delayed release(DR/EC) 20 mg PO DAILY Qty: 90 1RF aspirin [Aspirin Childrens] 81 mg Tablet,Chewable 81 mg PO DAILY triamcinolone acetonide [Aller-Bolivar] 55 mcg aerosol,spray 1 spray intranasal DAILY Rx Instructions: administer into each nostril guaifenesin [Mucus Relief ER] 600 mg Tablet Extended Release 12hr 600 mg PO BID Qty: 30 0RF cefdinir 300 mg capsule 300 mg PO BID Qty: 14 0RF doxycycline hyclate 100 mg capsule 100 mg PO BID Qty: 14 0RF Referrals: Ryan Arevalo, [Primary Care Provider, Family Practice] Stand Alone Forms: Patient Portal/API
--- NOTE | 2025-09-19 17:18 | PC.NURSE ---
Port deaccessed after heparin flush. Bandaid applied.
== END 2025-09-19 17:18 | disposition home or self-care (01) ==
PROVIDERS: Emergency Provider Physician Assistant; PCP Family Medicine
DX: Z43.8 Encounter for attention to other artificial openings (principal); Z95.828 Presence of other vascular implants and grafts
CPT/HCPCS: 99283; J1642